=== PATIENT | male | born 1950 | race Caucasian/White ===

== ENCOUNTER 2018-01-07 09:31 | Inpatient (IN) | payer MEDICARE ==
[~2018-01-07] VITALS: Ht 165.1 cm; Wt 62.1 kg
[2018-01-07] VITALS (11 sets, daily range): BP systolic 125–161; BP diastolic 68–92; PULSE 85–106; RESP 16–20; TEMP 98–99; O2SAT 92–99
[2018-01-07] MEDS ORDERED: ASPI-183 PO (09:52)
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
[2018-01-07] MEDS ORDERED: ONDANSETRON ODT 4 MG TAB PO ONE (10:15)
[2018-01-07] MEDS ORDERED: SODIUM CHLORID 0.9% 500 ML INJ 500 ML IV ONE (10:15)
[2018-01-07] MEDS ORDERED: MORPHINE SULFATE 4 MG/ML INJ IV PUSH ONE (10:15)
[2018-01-07] MEDS ORDERED: SODIUM CHLORIDE 0.9% FLUSH 10 ML FLUSH IVF PRN (10:15)
[2018-01-07 10:18] LABS: AUTOMATED NEUTROPHIL # 6.9 TH/MM3 (1.8-7.7); BASOPHIL # 0.1 TH/MM3 (0-0.2); BASOPHIL % 0.6 % (0.0-2.0); EOSINOPHIL # 0.1 TH/MM3 (0-0.4); EOSINOPHIL % 0.6 % (0.0-4.0); HEMATOCRIT 39.1 % (39.0-51.0); HEMOGLOBIN 13.2 GM/DL (13.0-17.0); LYMPH % 15.9 % (9.0-44.0); LYMPHOCYTE # 1.5 TH/MM3 (1.0-4.8); MEAN CELL VOLUME 92.7 FL (80.0-100.0); MEAN CORPUSCULAR HEMOGLOBIN 31.4 PG (27.0-34.0); MEAN CORPUSCULAR HGB CONC 33.8 % (32.0-36.0); MONO % 10.6 % (0.0-8.0); NEUT % 72.3 % (16.0-70.0); PLATELET COUNT 235 TH/MM3 (150-450); RED BLOOD COUNT 4.22 MIL/MM3 (4.50-5.90); RED CELL DISTRIBUTION WIDTH 14.4 % (11.6-17.2); WHITE BLOOD COUNT 9.6 TH/MM3 (4.0-11.0)
[2018-01-07 10:31] LABS: PROTHROMBIN TIME - PATIENT 10.4 SEC (9.8-11.6)
[2018-01-07 10:34] LABS: ALBUMIN 2.9 GM/DL (3.4-5.0); AST (GOT) 25 U/L (15-37); BICARBONATE 21.5 MEQ/L (21.0-32.0); BLOOD UREA NITROGEN 21 MG/DL (7-18); CALCIUM 8.6 MG/DL (8.5-10.1); CHLORIDE 109 MEQ/L (98-107); GLOMERULAR FILTRATION RATE 51 ML/MIN (>89); GLUCOSE,RANDOM 85 MG/DL (74-106); MAGNESIUM 2.1 MG/DL (1.5-2.5); SODIUM (NA) 141 MEQ/L (136-145)
--- NOTE | 2018-01-07 10:34 | RADRPT ---
EXAM DATE: 01/07/2018 10:31 AM EDT AGE/SEX: 67 years / Male INDICATIONS: Chest pain, short of breath, coughing up blood. CLINICAL DATA: This is the patient's initial encounter. Patient reports that signs and symptoms have been present for 1 day and indicates a pain score of 10/10. MEDICAL/SURGICAL HISTORY: Stroke. smoker, Coronary artery stent. CABG. COMPARISON: No prior exams available for comparison. FINDINGS: Parenchymal infiltrates are present in bilateral upper lobes. Heart and mediastinum are unremarkable. There is evidence of prior median sternotomy. CONCLUSION: Bilateral upper lobe infiltrates and tiny pleural effusions is suspected bilaterally as well. Electronically signed by: Subhash Kaur MD 01/07/2018 10:33 AM EDT
[2018-01-07 10:36] LABS: ALT (GPT) 28 U/L (12-78)
[2018-01-07 10:40] LABS: ALKALINE PHOSPHATASE 71 U/L (45-117); TOTAL BILIRUBIN ADULT 0.7 MG/DL (0.2-1.0); TOTAL PROTEIN 7.1 GM/DL (6.4-8.2); TROPONIN I LESS THAN 0.02 NG/ML (0.02-0.05)
[2018-01-07] MEDS ORDERED: cefTRIAXone INJ 1,000 MG in SODIUM CHLORIDE 0.9% INJ 100 ML IV ONE (12:00)
[2018-01-07] MEDS ORDERED: AZITHROMYCIN INJ 500 MG in SODIUM CHLOR 0.9% 250 ML INJ 250 ML IV ONE (12:00)
--- NOTE | 2018-01-07 12:02 | RADRPT ---
EXAM DATE: 01/07/2018 11:53 AM EDT AGE/SEX: 67 years / Male INDICATIONS: Coughing up blood. Chest and abdominal pain. CLINICAL DATA: This is the patient's initial encounter. Patient reports that signs and symptoms have been present for 3 days and indicates a pain score of 4/10. MEDICAL/SURGICAL HISTORY: Cardiovascular disease. Coronary artery stent. Carotid endarterectomy. CABG. RADIATION DOSE: 7.75 CTDI (mGy) COMPARISON: C, CHEST PA & LAT, 01/07/2018. . TECHNIQUE: Multiple contiguous axial images were obtained through the chest during bolus infusion of 74 ml Omnipaque 350 (iohexol) nonionic water-soluble contrast as a single exam dose. Images were obtained in suspended respiration using multiple row detector helical technique. Using automated exp osure control and adjustment of the mA and/or kV according to patient size, radiation dose was kept a s low as reasonably achievable to obtain optimal diagnostic quality images. FINDINGS: There is dense airspace consolidation in bilateral upper lobes corresponding to the opacities identif ied on the patient's chest x-ray. Small bilateral pleural effusions are seen. There is mild infiltrat e in right middle lobe. No appreciable pathological adenopathy is seen within the mediastinum. There is AAA involving descending aorta measures 4.5 x 4.7 cm in AP and transverse diameters with signific ant atherosclerotic plaquing intramural thrombus formation and areas of ulceration past the diaphragm atic hiatus and the exact extent of this aneurysm is not determined. There is also extensive atherosc lerotic plaquing with ulceration of the aortic arch. There is anterior wedging of upper lumbar verteb gill not adequately characterized. There are tiny nodules within bilateral thyroid glands most likely benign. CONCLUSION: 1. There is airspace consolidation in bilateral upper lobes highly suspicious for pneumonia. 2. Small bilateral pleural effusions. 3. Significant atherosclerotic disease of aorta including the aortic arch, ascending aorta with area s of ulceration particularly involving the descending aorta which is also aneurysmal measures almost 4.7 cm in diameter. 4. Superior endplate depression and compression of one of the upper lumbar vertebrae not adequately characterized probably chronic. Electronically signed by: uSbhash Kaur MD 01/07/2018 12:01 PM EDT
[2018-01-07] MEDS ORDERED: METOPROLOL TARTRATE 5 MG/5 ML VIAL IV PUSH ONE (12:45)
[2018-01-07] MEDS ORDERED: RESP: ALBUTEROL 2.5 MG/IPRATROPIUM 0.5 MG NEB (SCH) NEB ONE (12:45)
[2018-01-07] MEDS ORDERED: METOPROLOL TARTRATE 25 MG TAB PO ONE (12:45)
[2018-01-07] MEDS ORDERED: RESP: ALBUTEROL 2.5 MG/3 ML NEB (PRN) INH (13:00)
[2018-01-07] MEDS ORDERED: ASPIRIN 325 MG TAB PO ONE (13:00)
[2018-01-07] MEDS ORDERED: IOHEXOL 350 MG/ML 10 ML VIAL (for RAD DIAG) IVCONTRAST ONE (13:04)
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
[2018-01-07] MEDS ORDERED: POTASSIUM CHLORIDE 10 MEQ CONTROLLED RELEASE TAB PO ONE (14:30)
[2018-01-07] MEDS ORDERED: FUROSEMIDE 40 MG/4 ML VIAL IV PUSH ONE (14:30)
--- NOTE | 2018-01-07 15:28 | EKG ---
Date Performed: 01/07/2018 Time Performed: 08:50:30 PTAGE: 67 years EKG: Sinus rhythm WITH OCCASIONAL VENTRICULAR PREMATURE COMPLEXES WITH FREQUENT SUPRAVENTRICULAR PREMATURE COMPLEXES L EFT VENTRICULAR HYPERTROPHY AND ST-T CHANGE ABNORMAL ECG NO PREVIOUS TRACING DOCTOR: Oneyda Stevenson Interpretating Date/Time 01/07/2018 15:26:00
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
[2018-01-07] MEDS: RESP: IPRATROPIUM 0.5 MG/2.5 ML NEB INH SCH ×2 (17:35→21:30)
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
[2018-01-07] MEDS: METOPROLOL TARTRATE 25 MG TAB PO SCH (20:49)
[2018-01-07] MEDS: SODIUM CHLORIDE 0.9% FLUSH 10 ML FLUSH IV FLUSH SCH (20:50)
[2018-01-07 22:54] LABS: MAGNESIUM 1.8 MG/DL (1.5-2.5)
[2018-01-07 22:56] LABS: TROPONIN I 0.21 NG/ML (0.02-0.05)
[2018-01-08] VITALS (12 sets, daily range): BP systolic 100–159; BP diastolic 61–101; PULSE 63–145; RESP 16–35; TEMP 97.8–99.1; O2SAT 92–99
[2018-01-08] MEDS: RESP: IPRATROPIUM 0.5 MG/2.5 ML NEB INH SCH ×2 (03:37→08:30)
[2018-01-08] MEDS: ASPIRIN 81 MG CHEW TAB CHEW SCH (09:14)
[2018-01-08] MEDS: METOPROLOL TARTRATE 25 MG TAB PO SCH ×2 (09:14→20:57)
[2018-01-08] MEDS: SODIUM CHLORIDE 0.9% FLUSH 10 ML FLUSH IV FLUSH SCH ×2 (09:15→20:56)
[2018-01-08] MEDS ORDERED: RESP: ALBUTEROL 2.5 MG/IPRATROPIUM 0.5 MG NEB (PRN) NEB (10:30)
--- NOTE | 2018-01-08 10:38 | HHI.PR ---
Subjective Remarks 67-year-old male with history of open heart surgery for uncertain reasons, TIA, bilateral carotid stenting, chronic smoker who presents with a 3 day history of cough productive of bloody sputum, as well as sharp epigastric abdominal worse with deep breathing. Over the phone translation is offered, however patient opts to use daughter for translation. Patient reports sweats, shortness of breath, and reports breathing worse lying down. He is emigrated from [place] in the 1970s, denies any recent travel outside the country, however reports recent automobile travel which lasted 2 days. He denies any swelling in his extremities. 01-08 IN RESPIRATORY ISOLATION- RULING OUT TB CONTINUE IS ALBERT TAYLOR RN AND PT AND FAMILY AWAIT SPUTUMS Objective Vitals Vital Signs Date Time Temp Pulse Resp B/P (MAP) Pulse Ox O2 Delivery O2 Flow Rate FiO2 01/08/18 08:30 97 Partial Rebreather 14.00 01/08/18 08:00 98.1 63 17 134/76 (95) 92 01/08/18 03:37 97 Non-Rebreather 15.00 01/08/18 00:00 97.8 80 16 107/61 (76) 97 01/07/18 21:30 96 Non-Rebreather 15.00 01/07/18 20:38 98.0 99 20 147/68 (94) 95 01/07/18 19:07 01/07/18 17:24 85 16 128/81 (97) 99 Non-Rebreather 15.00 01/07/18 15:48 95 20 156/79 (104) 98 Non-Rebreather 15.00 01/07/18 14:51 94 Non-Rebreather 15.00 01/07/18 13:20 106 20 125/91 (102) 94 Nasal Cannula 4.00 01/07/18 13:15 92 Nasal Cannula 6.00 01/07/18 11:59 95 16 161/80 (107) 92 Nasal Cannula 4.00 01/07/18 10:53 16 94 Nasal Cannula 2.00 I/O 01/07/18 01/07/18 01/07/18 01/08/18 01/08/18 01/08/18 07:00 15:00 23:00 07:00 15:00 23:00 Intake Total 850 ml Output Total 950 ml 300 ml Balance 850 ml -950 ml -300 ml Intake IV Total 850 ml Output Urine Total 950 ml 300 ml # Voids 1 Result Diagram: 01/07/18 1005 01/07/18 1005 Other Results Laboratory Tests Test 01/07/18 10:05 01/07/18 12:25 01/07/18 14:35 01/07/18 15:32 White Blood Count 9.6 TH/MM3 Red Blood Count 4.22 MIL/MM3 Hemoglobin 13.2 GM/DL Hematocrit 39.1 % Mean Corpuscular Volume 92.7 FL Mean Corpuscular Hemoglobin 31.4 PG Mean Corpuscular Hemoglobin Concent 33.8 % Red Cell Distribution Width 14.4 % Platelet Count 235 TH/MM3 Mean Platelet Volume 9.0 FL Neutrophils (%) (Auto) 72.3 % Lymphocytes (%) (Auto) 15.9 % Monocytes (%) (Auto) 10.6 % Eosinophils (%) (Auto) 0.6 % Basophils (%) (Auto) 0.6 % Neutrophils # (Auto) 6.9 TH/MM3 Lymphocytes # (Auto) 1.5 TH/MM3 Monocytes # (Auto) 1.0 TH/MM3 Eosinophils # (Auto) 0.1 TH/MM3 Basophils # (Auto) 0.1 TH/MM3 CBC Comment DIFF FINAL Differential Comment Prothrombin Time 10.4 SEC Prothromb Time International Ratio 1.0 RATIO Activated Partial Thromboplast Time 29.9 SEC D-Dimer Quantitative (PE/DVT) 1.55 MG/L FEU Blood Urea Nitrogen 21 MG/DL Creatinine 1.40 MG/DL Random Glucose 85 MG/DL Total Protein 7.1 GM/DL Albumin 2.9 GM/DL Calcium Level 8.6 MG/DL Magnesium Level 2.1 MG/DL Alkaline Phosphatase 71 U/L Aspartate Amino Transf (AST/SGOT) 25 U/L Alanine Aminotransferase (ALT/SGPT) 28 U/L Total Bilirubin 0.7 MG/DL Sodium Level 141 MEQ/L Potassium Level 3.7 MEQ/L Chloride Level 109 MEQ/L Carbon Dioxide Level 21.5 MEQ/L Anion Gap 11 MEQ/L Estimat Glomerular Filtration Rate 51 ML/MIN Total Creatine Kinase 143 U/L Creatine Kinase MB 0.6 NG/ML Troponin I LESS THAN 0.02 NG/ML 0.02 NG/ML B-Type Natriuretic Peptide 873 PG/ML Lipase 91 U/L Lactic Acid Level 1.0 mmol/L Blood Gas Puncture Site RT RADIAL Blood Gas Patient Temperature 98.6 Blood Gas HCO3 19 mmol/L Blood Gas Base Excess -4.4 mmol/L Blood Gas Oxygen Saturation 85 % Arterial Blood pH 7.43 Arterial Blood Partial Pressure CO2 29 mmHg Arterial Blood Partial Pressure O2 56 mmHG Arterial Blood Oxygen Content 16.2 Vol % Arterial Blood Carboxyhemoglobin 0.0 % Arterial Blood Methemoglobin 0.4 % Blood Gas Hemoglobin 13.6 G/DL Oxygen Delivery Device NASAL CANNULA Blood Gas Liter Flow 6 L/M Test 01/07/18 16:25 01/07/18 21:52 Urine Opiates Screen NEG Urine Barbiturates Screen NEG Urine Amphetamines Screen NEG Urine Benzodiazepines Screen NEG Urine Cocaine Screen NEG Urine Cannabinoids Screen NEG Magnesium Level 1.8 MG/DL Troponin I 0.21 NG/ML Imaging Last Impressions Chest X-Ray 01/07/18 1001 Signed Impressions: CONCLUSION: Bilateral upper lobe infiltrates and tiny pleural effusions is suspected bilate rally as well. Chest CT 01/07/18 0000 Addendum Impressions: CONCLUSION: 1. There is airspace consolidation in bilateral upper lobes highly suspicious for pneumonia. 2. Small bilateral pleural effusions. 3. 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 4. Superior endplate depression and compression of one of the upper lumbar stevan tebrae not adequately characterized probably chronic. Objective Remarks GENERAL: This is a well-nourished, well-developed patient, in no apparent distress. Alert and oriented 3. SKIN: No rashes, ecchymoses or lesions. Cool and dry. HEAD: Atraumatic. Normocephalic. No temporal or scalp tenderness. EYES: Pupils equal round and reactive. Extraocular motions intact. No scleral icterus. No injection or drainage. ENT: Nose without bleeding, purulent drainage or septal hematoma. Throat without erythema, tonsillar hypertrophy or exudate. Uvula midline. Airway patent. No bruits NECK: Trachea midline. No JVD or lymphadenopathy. Supple, nontender, no meningeal signs. CARDIOVASCULAR: Regular rate and rhythm without murmurs, gallops, or rubs. Midline healed chest surgical scar., Midline abdominal scar. RESPIRATORY: COARSE BS BL. No wheezes, rales, or rhonchi. GASTROINTESTINAL: Abdomen soft, non-tender, nondistended. No hepato-splenomegaly , or palpable masses. No guarding. MUSCULOSKELETAL: Extremities without clubbing, cyanosis, or edema. No joint tenderness, effusion, or edema noted. No calf tenderness. Negative Homans sign bilaterally. NEUROLOGICAL: Awake and alert. Cranial nerves II through XII intact. Motor and sensory grossly within normal limits. Five out of 5 muscle strength in all muscle groups. Normal speech. INSIGHT AND JUDGEMENT IS LIMITED MOOD AND BEHAVIOR IS SOMEWHAT APPROPRIATE Medications and IVs Current Medications Morphine Sulfate (Morphine Inj) 2 mg ONCE ONCE IV PUSH Last administered on 01/07/18at 10:52; Start 01/07/18 at 10:15; Stop 01/07/18 at 10:16; Status DC Sodium Chloride (NS Flush) 2 ml UNSCH PRN IVF FLUSH AFTER USING IV ACCESS; Start 01/07/18 at 10:15; Stop 01/07/18 at 14:48; Status DC Sodium Chloride 500 ml @ 500 mls/hr ONCE ONCE IV Last administered on at 10:51; Start 01/07/18 at 10:15; Stop 01/07/18 at 11:14; Status DC Ondansetron HCl (Zofran Odt) 4 mg ONCE ONCE PO Last administered on 01/07/18at 10:51; Start 01/07/18 at 10:15; Stop 01/07/18 at 10:16; Status DC Ceftriaxone Sodium 1000 mg/ Sodium Chloride 100 ml @ 200 mls/hr ONCE ONCE IV Last administered on 01/07/18at 12:33; Start 01/07/18 at 12:00; Stop 01/07/18 at 12: 29; Status DC Azithromycin 500 mg/Sodium Chloride 250 ml @ 250 mls/hr ONCE ONCE IV Last administered on 01/07/18at 12:34; Start 01/07/18 at 12:00; Stop 01/07/18 at 12:59; Status DC Albuterol/ Ipratropium (Duoneb Neb) 1 ampule ONCE ONCE NEB Last administered on 01/07/18at 13:16; Start 01/07/18 at 12:45; Stop 01/07/18 at 12:46; Status DC Metoprolol Tartrate (Lopressor) 25 mg ONCE ONCE PO Last administered on at 12:45; Start 01/07/18 at 12:45; Stop 01/07/18 at 12:46; Status DC Metoprolol Tartrate (Lopressor Inj) 1.25 mg ONCE ONCE IV PUSH Last administered on 01/07/18at 12:45; Start 01/07/18 at 12:45; Stop 01/07/18 at 12:46; Status DC Aspirin (Aspirin) 325 mg ONCE ONCE PO Last administered on 01/07/18at 13:20; Start 01/07/18 at 13:00; Stop 01/07/18 at 13:01; Status DC Sodium Chloride (NS Flush) 2 ml BID IV FLUSH Last administered on 01/08/18at 09: 15; Start 01/07/18 at 21:00 Sodium Chloride (NS Flush) 2 ml UNSCH PRN IV FLUSH FLUSH AFTER USING IV ACCESS ; Start 01/07/18 at 13:00 Albuterol Sulfate (Albuterol Neb) 2.5 mg Q2HR NEB PRN INH SHORTNESS OF BREATH; Start 01/07/18 at 13:00 Ipratropium [place] (Atrovent Neb) 0.5 mg Q6HR NEB INH Last administered on 01/08/18at 08:30; Start 01/07/18 at 16:00 Azithromycin (Zithromax) 500 mg Taper Q24H PO ; Start 01/08/18 at 13:00; Stop at 12:59 Ceftriaxone Sodium 1000 mg/ Sodium Chloride 100 ml @ 200 mls/hr Q24H IV ; Start 01/08/18 at 13:00 Iohexol (Omnipaque 350 Inj) 74 ml STK-MED ONCE IVCONTRAST Last administered on 01/07/18at 13:04; Start 01/07/18 at 13:04; Stop 01/07/18 at 13:05; Status DC Hydralazine HCl (Apresoline) 10 mg Q45M PRN PO SBP > 140; Start 01/07/18 at 15: 00 Furosemide (Lasix Inj) 40 mg ONCE ONCE IV PUSH Last administered on 01/07/18at 15:35; Start 01/07/18 at 14:30; Stop 01/07/18 at 14:35; Status DC Potassium Chloride (KCl) 30 meq ONCE ONCE PO Last administered on 01/07/18at 15: 35; Start 01/07/18 at 14:30; Stop 01/07/18 at 14:36; Status DC Aspirin (Aspirin Chew) 81 mg DAILY CHEW Last administered on 01/08/18at 09:14; Start 01/08/18 at 09:00 Metoprolol Tartrate (Lopressor) 25 mg Q12HR PO Last administered on 01/08/18at 09 :14; Start 01/07/18 at 21:00 A/P Problem List: (1) Paroxysmal atrial flutter ICD Code: I48.92 - Unspecified atrial flutter Status: Acute (2) Bilateral pneumonia ICD Code: J18.9 - Pneumonia, unspecified organism Status: Acute (3) Tachyarrhythmia ICD Code: R00.0 - Tachycardia, unspecified Status: Acute (4) Hypoxia ICD Code: R09.02 - Hypoxemia Status: Acute Assessment and Plan //Suspected bilateral upper lobe pneumonia //Possible pulmonary embolism //Hemoptysis //Possible tuberculosis = Recent prolonged 2 day automobile trip = Chest x-ray with bilateral upper lobe infiltrates. CT chest with bilateral upper lobe infiltrates. = D-dimer 1.4. Pending CT pulmonary angiogram. = Nebs, IV antibiotics. NEBS STEROIDS, MUCINEX, IS,ANTIBIOTICS //CHF exacerbation -Bilateral pulmonary infiltrates, BNP ordered which is in the 800s. Will check echocardiogram. Cardiology was consulted. Diuresis. Fluid restrictions per //Pleuritic chest pain = Likely secondary to pneumonia versus pulmonary embolism. CT pulmonary SHOWS PNEUMONIA = Discussed with cardiology, who will addend thoracic CT. = Trend EKGs and troponins. //Suspected paroxysmal atrial fibrillation. Reported by ED. EKGs. No previous history. Will consult cardiology. Continue on telemetry. //Aortic aneurysm as seen on imaging. 4.7 cm. ulcerations. = Patient reportedly with history of stroke. Likely he underwent aortic aneurysm repair in the past, however unknown why he had surgery. Patient will need to stop smoking, and continue monitoring as outpatient. Will control blood pressure. //Chronic smoker. Cessation counseling provided Discharge Planning PENDING CLEARANCE FOR TB Problem Qualifiers (1) Bilateral pneumonia: Qualified Codes: J18.1 - Lobar pneumonia, unspecified organism Yovanny Solano DO Jan 08, 2018 10:38
[2018-01-08] MEDS ORDERED: SENNOSIDES 8.6 MG TAB PO PRN (11:30)
[2018-01-08] MEDS ORDERED: METOCLOPRAMIDE HCL 10 MG/2 ML VIAL IV PUSH PRN (11:30)
[2018-01-08] MEDS ORDERED: NALOXONE HCL 0.4 MG/ML AMP IV PUSH PRN (11:30)
[2018-01-08] MEDS ORDERED: LACTULOSE SYRUP 20 GM/30 ML CUP PO PRN (11:30)
[2018-01-08] MEDS ORDERED: BISACODYL 10 MG SUPP RECTAL PRN (11:30)
[2018-01-08] MEDS ORDERED: oxyCODONE/ACETAMINOPHEN 5 MG/325 MG TAB PO PRN (11:30)
[2018-01-08] MEDS ORDERED: MAGNESIUM HYDROXIDE SUSP 30 ML CUP PO PRN (11:30)
[2018-01-08] MEDS ORDERED: ACETAMINOPHEN 325 MG TAB PO PRN (11:30)
[2018-01-08] MEDS ORDERED: ONDANSETRON ODT 4 MG TAB PO PRN (12:15)
[2018-01-08] MEDS ORDERED: MORPHINE SULFATE 4 MG/ML INJ IV PUSH PRN ×2 (12:15)
[2018-01-08] MEDS: guaiFENesin E.R. 600 MG TAB PO SCH ×2 (12:22→20:57)
[2018-01-08] MEDS: oxyCODONE/ACETAMINOPHEN 10 MG/325 MG TAB PO PRN (12:22)
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
[2018-01-08] MEDS ORDERED: cefTRIAXone INJ 1,000 MG in SODIUM CHLORIDE 0.9% INJ 100 ML IV SCH (13:00)
[2018-01-08] MEDS ORDERED: guaiFENesin/CODEINE SYRUP 200 MG/20 MG/10 ML CUP PO PRN (14:00)
[2018-01-08] MEDS ORDERED: RESP: ALBUTEROL 2.5 MG/IPRATROPIUM 0.5 MG NEB (SCH) NEB (14:00)
[2018-01-08] MEDS ORDERED: SODIUM CHLOR 0.9% 1000 ML INJ 1,000 ML IV ONE (14:30)
--- NOTE | 2018-01-08 14:58 | EKG ---
Date Performed: 01/07/2018 Time Performed: 20:13:29 PTAGE: 67 years EKG: Sinus rhythm WITH FREQUENT VENTRICULAR PREMATURE COMPLEXES WITH FREQUENT SUPRAVENTRICULAR PREMATURE COMPLEXES IN A BIGEMINAL PATTERN LEFT VENTRICULAR HYPERTROPHY AND ST-T CHANGE ABNORMAL ECG PREVIOUS TRACING : 01/07/2018 16.35 Since the previous tracing, no significant change noted DOCTOR: Micha Reyes Interpretating Date/Time 01/08/2018 14:57:46
[2018-01-08] MEDS ORDERED: SODIUM CHLOR 0.9% 1000 ML INJ 1,000 ML IV SCH (15:00)
--- NOTE | 2018-01-08 15:05 | EKG ---
Date Performed: 01/07/2018 Time Performed: 16:35:10 PTAGE: 67 years EKG: Sinus rhythm WITH FREQUENT SUPRAVENTRICULAR PREMATURE COMPLEXES LEFT VENTRICULAR HYPERTROPHY AND ST-T CHANGE ABNO RMAL ECG PREVIOUS TRACING : 01/07/2018 11.37 COMPARED WITH THE PREVIOUS EKG ATRIAL FIBRILLATION WITH RA PID VENTRICULAR RESPONSE IS NO LONGER PRESENT DOCTOR: Micha Reyes Interpretating Date/Time 01/08/2018 15:04:07
--- NOTE | 2018-01-08 15:15 | EKG ---
Date Performed: 01/07/2018 Time Performed: 11:37:11 PTAGE: 67 years EKG: ATRIAL FIBRILLATION WITH RAPID VENTRICULAR RESPONSE LEFT VENTRICULAR HYPERTROPHY AND ST-T CHANGE ABNORMAL ECG PREVIOUS TRACING : 01/07/2018 08.50 COMPARED WITH PREVIOUS EKG ATRIAL FIBRILLATION WITH RAPID VENTRICULAR RESPONSE IS NEW DOCTOR: Micha Reyes Interpretating Date/Time 01/08/2018 15:14:32
--- NOTE | 2018-01-08 15:36 | RADRPT ---
EXAM DATE: 01/08/2018 3:30 PM EDT AGE/SEX: 67 years / Male INDICATIONS: SOB CLINICAL DATA: This is the patient's subsequent encounter. Patient reports that signs and symptoms h ave been present for 4 - 6 days and indicates a pain score of Nonresponsive. MEDICAL/SURGICAL HISTORY: Cardiovascular disease. CABG Coronary artery stent. Carotid endarter ectomy. COMPARISON: [facility] [place], CHEST PA & LAT, 01/07/2018. . FINDINGS: Frontal view of the chest demonstrates bilateral nonconsolidative infiltrates in the central upper jimmy ngs bilaterally. These are similar in size and appearance when compared to prior chest x-ray yesterda y. There is also new infiltrate in the right hilar region. The heart is mildly enlarged, stable from prior. Both hemidiaphragms well delineated and there is no blunting of the costophrenic angle. CONCLUSION: Persistent bilateral upper lung interstitial infiltrates and new infiltrate in the right perihilar re gion. No radiographic evidence of pleural effusion. Electronically signed by: Hiro Rangel MD 01/08/2018 3:35 PM EDT
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
[2018-01-08 16:26] LABS: TROPONIN I 0.22 NG/ML (0.02-0.05)
[2018-01-08 16:48] LABS: BASOPHIL % 0.3 % (0.0-2.0); EOSINOPHIL % 0.1 % (0.0-4.0); HEMATOCRIT 37.7 % (39.0-51.0); HEMOGLOBIN 12.6 GM/DL (13.0-17.0); LYMPH % 6.3 % (9.0-44.0); LYMPHOCYTE # 0.8 TH/MM3 (1.0-4.8); MEAN CELL VOLUME 93.1 FL (80.0-100.0); MEAN CORPUSCULAR HEMOGLOBIN 31.1 PG (27.0-34.0); MEAN CORPUSCULAR HGB CONC 33.4 % (32.0-36.0); MEAN PLATELET VOLUME 9.5 FL (7.0-11.0); MONO % 8.7 % (0.0-8.0); MONOCYTE # 1.1 TH/MM3 (0-0.9); NEUT % 84.6 % (16.0-70.0); PLATELET COUNT 205 TH/MM3 (150-450); RED BLOOD COUNT 4.04 MIL/MM3 (4.50-5.90); RED CELL DISTRIBUTION WIDTH 14.6 % (11.6-17.2)
--- NOTE | 2018-01-08 17:11 | PD.CARD.PN ---
Subjective Subjective Remarks Transferred to ICU by pulmonary Telemetry sinus rhythm in the 80s Overall SOB, no chest pain Objective Medications Current Medications Medications (Trade) Dose Ordered Sig/Herber Route Start Time Stop Time Status Last Admin (NS Flush) 2 ml BID IV FLUSH 01/07/18 21:00 01/08/18 09:15 (NS Flush) 2 ml UNSCH PRN IV FLUSH 01/07/18 13:00 (Zithromax) 500 mg Taper DAILY PO 01/08/18 13:00 01/13/18 12:59 Ceftriaxone Sodium 1000 mg/ Sodium Chloride 100 ml @ 200 mls/hr Q24H IV 01/08/18 13:00 01/08/18 14:15 (Apresoline) 10 mg Q45M PRN PO 01/07/18 15:00 (Aspirin Chew) 81 mg DAILY CHEW 01/08/18 09:00 01/08/18 09:14 (Lopressor) 25 mg Q12HR PO 01/07/18 21:00 01/08/18 09:14 (Mucinex Er) 600 mg BID PO 01/08/18 11:15 01/08/18 12:22 (Duoneb Neb) 1 ampule Q6HR WHILE AWAKE NEB NEB 01/08/18 14:00 01/08/18 13:27 (Duoneb Neb) 1 ampule Q2HR NEB PRN NEB 01/08/18 10:30 (Tylenol) 650 mg Q4H PRN PO 01/08/18 11:30 (Zofran Odt) 4 mg Q6H PRN PO 01/08/18 12:15 (Reglan Inj) 5 mg Q6H PRN IV PUSH 01/08/18 11:30 (Tylenol) 650 mg Q6H PRN PO 01/08/18 11:30 (Percocet 5-325 Mg) 1 tab Q6H PRN PO 01/08/18 11:30 (Percocet 10-325 Mg) 1 tab Q6H PRN PO 01/08/18 11:30 01/08/18 12:22 (Morphine Inj) 2 mg Q3H PRN IV PUSH 01/08/18 12:15 (Morphine Inj) 4 mg Q3H PRN IV PUSH 01/08/18 12:15 (Narcan Inj) 0.4 mg UNSCH PRN IV PUSH 01/08/18 11:30 (Lashay-Colace) 1 tab BID PO 01/08/18 21:00 (Milk Of Magnesia Liq) 30 ml Q12H PRN PO 01/08/18 11:30 (Senokot) 17.2 mg Q12H PRN PO 01/08/18 11:30 (Dulcolax Supp) 10 mg DAILY PRN RECTAL 01/08/18 11:30 (Lactulose Liq) 30 ml DAILY PRN PO 01/08/18 11:30 (Robitussin Ac 200-20 Mg/10 ml Liq) 5 ml Q6H PRN PO 01/08/18 14:00 Sodium Chloride 1,000 ml @ 125 mls/hr Q8H IV 01/08/18 15:00 Vital Signs / I&O Vital Signs Date Time Temp Pulse Resp B/P (MAP) Pulse Ox O2 Delivery O2 Flow Rate FiO2 01/08/18 12:00 97.8 98 17 100/67 (78) 92 01/08/18 08:30 97 Partial Rebreather 14.00 01/08/18 08:00 98.1 63 17 134/76 (95) 92 01/08/18 03:37 97 Non-Rebreather 15.00 01/08/18 00:00 97.8 80 16 107/61 (76) 97 01/07/18 21:30 96 Non-Rebreather 15.00 01/07/18 20:38 98.0 99 20 147/68 (94) 95 01/07/18 19:07 01/07/18 17:24 85 16 128/81 (97) 99 Non-Rebreather 15.00 I/O 01/07/18 01/07/18 01/07/18 01/08/18 01/08/18 01/08/18 07:00 15:00 23:00 07:00 15:00 23:00 Intake Total 850 ml Output Total 950 ml 300 ml Balance 850 ml -950 ml -300 ml Intake IV Total 850 ml Output Urine Total 950 ml 300 ml # Voids 1 Physical Exam GENERAL: NAD on NRB SKIN: Warm and dry. HEAD: Atraumatic. Normocephalic. EYES: Pupils equal and round. No scleral icterus. No injection or drainage. ENT: No nasal bleeding or discharge. Mucous membranes pink and moist. NECK: Trachea midline. No JVD. CARDIOVASCULAR: Regular rate and rhythm. RESPIRATORY: No accessory muscle use. Decreased breath sounds with scattered rhonchi GASTROINTESTINAL: Abdomen soft, non-tender, nondistended. Hepatic and splenic margins not palpable. MUSCULOSKELETAL: Extremities without clubbing, cyanosis, or edema. No obvious deformities. NEUROLOGICAL: Awake and alert. No obvious cranial nerve deficits. Motor grossly within normal limits. Five out of 5 muscle strength in the arms and legs. Normal speech. PSYCHIATRIC: Appropriate mood and affect; insight and judgment normal. Laboratory Laboratory Tests Test 01/07/18 21:52 01/08/18 15:00 01/08/18 15:41 01/08/18 16:20 Magnesium Level 1.8 MG/DL Troponin I 0.21 NG/ML 0.22 NG/ML Blood Gas Puncture Site LT RADIAL Blood Gas Patient Temperature 98.6 Blood Gas HCO3 21 mmol/L Blood Gas Base Excess -3.2 mmol/L Blood Gas Oxygen Saturation 94 % Arterial Blood pH 7.39 Arterial Blood Partial Pressure CO2 35 mmHg Arterial Blood Partial Pressure O2 96 mmHg Arterial Blood Oxygen Content 16.6 Vol % Arterial Blood Carboxyhemoglobin 0.6 % Arterial Blood Methemoglobin 1.8 % Blood Gas Hemoglobin 12.5 G/DL Oxygen Delivery Device PARTIAL REBREATHER Blood Gas Liter Flow 15 L/M Total Creatine Kinase 602 U/L Creatine Kinase MB 1.7 NG/ML Creatine Kinase MB % 0.3 % Test 01/08/18 16:30 White Blood Count 13.0 TH/MM3 Red Blood Count 4.04 MIL/MM3 Hemoglobin 12.6 GM/DL Hematocrit 37.7 % Mean Corpuscular Volume 93.1 FL Mean Corpuscular Hemoglobin 31.1 PG Mean Corpuscular Hemoglobin Concent 33.4 % Red Cell Distribution Width 14.6 % Platelet Count 205 TH/MM3 Mean Platelet Volume 9.5 FL Neutrophils (%) (Auto) 84.6 % Lymphocytes (%) (Auto) 6.3 % Monocytes (%) (Auto) 8.7 % Eosinophils (%) (Auto) 0.1 % Basophils (%) (Auto) 0.3 % Neutrophils # (Auto) 11.0 TH/MM3 Lymphocytes # (Auto) 0.8 TH/MM3 Monocytes # (Auto) 1.1 TH/MM3 Eosinophils # (Auto) 0.0 TH/MM3 Basophils # (Auto) 0.0 TH/MM3 CBC Comment DIFF FINAL Differential Comment Imaging Last 24 hours Impressions Chest X-Ray 01/08/18 0000 Signed Impressions: CONCLUSION: Persistent bilateral upper lung interstitial infiltrates and new infiltrate in the right perihilar region. No radiographic evidence of pleural effusion. Assessment and Plan Problem List: (1) Bilateral pneumonia ICD Codes: J18.9 - Pneumonia, unspecified organism Status: Acute (2) Hypoxia ICD Codes: R09.02 - Hypoxemia Status: Acute (3) Tachyarrhythmia ICD Codes: R00.0 - Tachycardia, unspecified Status: Acute (4) Paroxysmal atrial flutter ICD Codes: I48.92 - Unspecified atrial flutter Status: Acute Assessment and Plan 1) SOB secondary to PNA Bloody mucus, ruling out TB 2) Aflutter with RVR, now in sinus rhythm Most likely potentiated by his underlying illness Not an anti-coagulation candidate at this time due to hemoptysis 3) 2D echo pending 4) 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 Lamar Echo to evaluate aortic valve with surgery 5) Abdominal aortic aneurysm Follow up with Dr. Lamar 6) Tobacco cessation 7) Elevated troponins Type 2 in nature due to underlying illness/hypoxemia Medical management as he is not an invasive candidate with hemoptysis This can be reevaluated through out the hospital course and outpt Problem Qualifiers (1) Bilateral pneumonia: Qualified Codes: J18.1 - Lobar pneumonia, unspecified organism Atul Galan DO Jan 08, 2018 17:11
[2018-01-08 17:20] LABS: ALBUMIN 2.5 GM/DL (3.4-5.0); ALKALINE PHOSPHATASE 90 U/L (45-117); ALT (GPT) 47 U/L (12-78); AST (GOT) 57 U/L (15-37); BICARBONATE 21.1 MEQ/L (21.0-32.0); BLOOD UREA NITROGEN 30 MG/DL (7-18); CALCIUM 8.4 MG/DL (8.5-10.1); CHLORIDE 106 MEQ/L (98-107); CREATININE 1.38 MG/DL (0.60-1.30); GLOMERULAR FILTRATION RATE 52 ML/MIN (>89); GLUCOSE,RANDOM 132 MG/DL (74-106); MAGNESIUM 2.1 MG/DL (1.5-2.5); PHOSPHORUS 4.1 MG/DL (2.5-4.9); SODIUM (NA) 138 MEQ/L (136-145); TOTAL BILIRUBIN ADULT 0.8 MG/DL (0.2-1.0)
[2018-01-08] MEDS ORDERED: RESP: ALBUTEROL 2.5 MG/3 ML NEB (PRN) NEB (17:30)
[2018-01-08 19:06] LABS: CREATININE, RANDOM URINE 192.8 MG/DL
[2018-01-08] MEDS: DOCUSATE SODIUM 50 MG/SENNA 8.6 MG TAB PO SCH (20:57)
--- NOTE | 2018-01-08 20:57 | RADRPT ---
EXAM DATE: 01/08/2018 8:53 PM EDT AGE/SEX: 67 years / Male INDICATIONS: leg swelling. CLINICAL DATA: This is the patient's initial encounter. Patient reports that signs and symptoms have been present for 1 day and indicates a pain score of Nonresponsive. MEDICAL/SURGICAL HISTORY: . Cardiovascular disease. . CABG Coronary artery stent. Carotid end arterectomy. COMPARISON: No prior exams available for comparison. No external comparison. TECHNIQUE: Venous ultrasound of both lower extremities was performed from the inguinal ligament to t he proximal calf. Real-time, color Doppler and spectral tracing, compression and augmentation techni ques were used. FINDINGS: Right Leg: There is normal compressibility of the deep venous system from the inguinal region to the proximal calf. No echogenic clot is seen in the lumen of the common femoral, femoral, popliteal, an d posterior tibial veins. There is a normal response of the venous system to proximal and distal aug mentation and respiration. Left Leg: There is normal compressibility of the deep venous system from the inguinal region to the proximal calf. No echogenic clot is seen in the lumen of the common femoral, femoral, popliteal, and posterior tibial veins. There is a normal response of the venous system to proximal and distal augm entation and respiration. CONCLUSION: 1. Negative for deep venous thrombosis bilateral lower extremities. Electronically signed by: Aurelio Camp MD 01/08/2018 8:55 PM EDT
--- NOTE | 2018-01-08 21:09 | RADRPT ---
EXAM DATE: 01/08/2018 9:05 PM EDT AGE/SEX: 67 years / Male INDICATIONS: Increased BUN and creatinine. CLINICAL DATA: This is the patient's initial encounter. Patient reports that signs and symptoms have been present for 1 day and indicates a pain score of Nonresponsive. MEDICAL/SURGICAL HISTORY: . Cardiovascular disease. . CABG Coronary artery stent. Carotid enda rterectomy. COMPARISON: No prior exams available for comparison. No external comparison. MEASUREMENTS: Right Kidney:__10.5 x 5.4 x 5.4 cm cm Left Kidney:__8.9 x 4.0 x 4.6 cm cm FINDINGS: Right Kidney: Normal in size without hydronephrosis. Left Kidney: Atrophic. No hydronephrosis. Bladder: Within normal limits given the degree of distension. CONCLUSION: 1. Atrophic left kidney. Right kidney unremarkable. No hydronephrosis. Electronically signed by: Aurelio Camp MD 01/08/2018 9:08 PM EDT
[2018-01-08] MEDS: RESP: ALBUTEROL 2.5 MG/IPRATROPIUM 0.5 MG NEB (SCH) NEB ×2 (21:13→23:36)
[2018-01-08] MEDS ORDERED: FUROSEMIDE 20 MG/2 ML VIAL IV PUSH ONE (21:45)
[2018-01-08] MEDS ORDERED: SUCCINYLCHOLINE CHLORIDE 200 MG/10 ML VIAL ONE (22:55)
[2018-01-08] MEDS ORDERED: SUCCINYLCHOLINE CHLORIDE 100 MG/5 ML SYRINGE IV PUSH ONE (23:00)
[2018-01-08] MEDS ORDERED: ETOMIDATE 20 MG/10 ML VIAL IV PUSH ONE (23:00)
[2018-01-08 23:04] LABS: TROPONIN I 0.14 NG/ML (0.02-0.05)
[2018-01-08] MEDS ORDERED: MIDAZOLAM 100 MG/100 ML INJ 100 ML IV PRN (23:15)
--- NOTE | 2018-01-08 23:43 | RADRPT ---
EXAM DATE: 01/08/2018 11:40 PM EDT AGE/SEX: 67 years / Male INDICATIONS: E-T tube placement. CLINICAL DATA: This is the patient's subsequent encounter. Patient reports that signs and symptoms h ave been present for 2 days and indicates a pain score of Nonresponsive. MEDICAL/SURGICAL HISTORY: Stroke. Coronary artery stent. CABG. COMPARISON: [facility] – [place], CHEST SINGLE AP, 01/08/2018. . FINDINGS: There has been development of prominent perihilar batwing infiltrates suggesting ARDS. The endotrache al tube, nasogastric tube are in good position. Clips and wires suggests CABG. There is no visible pn eumothorax. CONCLUSION: Interval involvement of ARDS with perihilar batwing infiltrates. ET tube is in excellent position Electronically signed by: Attila Araujo MD 01/08/2018 11:42 PM EDT
[2018-01-08] MEDS: MIDAZOLAM 50 MG/50 ML INJ 50 ML IV PRN (23:56)
[2018-01-08] MEDS: PROPOFOL 1000 MG/100 ML INJ 100 ML IV PRN (23:56)
[2018-01-08] MEDS: fentaNYL DRIP 250 ML IV PRN (23:57)
[2018-01-09] VITALS (16 sets, daily range): BP systolic 101–116; BP diastolic 57–66; PULSE 84–117; RESP 15–34; TEMP 98.3–99.5; O2SAT 95–100
[2018-01-09 04:24] LABS: AUTOMATED NEUTROPHIL # 10.7 TH/MM3 (1.8-7.7); BASOPHIL % 0.3 % (0.0-2.0); EOSINOPHIL % 0.1 % (0.0-4.0); HEMATOCRIT 36.3 % (39.0-51.0); HEMOGLOBIN 12.2 GM/DL (13.0-17.0); LYMPH % 5.9 % (9.0-44.0); LYMPHOCYTE # 0.7 TH/MM3 (1.0-4.8); MEAN CELL VOLUME 93.6 FL (80.0-100.0); MEAN CORPUSCULAR HEMOGLOBIN 31.4 PG (27.0-34.0); MEAN CORPUSCULAR HGB CONC 33.5 % (32.0-36.0); MEAN PLATELET VOLUME 9.3 FL (7.0-11.0); MONO % 7.7 % (0.0-8.0); MONOCYTE # 0.9 TH/MM3 (0-0.9); PLATELET COUNT 200 TH/MM3 (150-450); RED BLOOD COUNT 3.88 MIL/MM3 (4.50-5.90); RED CELL DISTRIBUTION WIDTH 14.3 % (11.6-17.2); WHITE BLOOD COUNT 12.4 TH/MM3 (4.0-11.0)
[2018-01-09] MEDS: RESP: ALBUTEROL 2.5 MG/IPRATROPIUM 0.5 MG NEB (SCH) NEB ×5 (04:31→20:31)
[2018-01-09 04:46] LABS: ALBUMIN 2.4 GM/DL (3.4-5.0); AST (GOT) 43 U/L (15-37); BICARBONATE 21.9 MEQ/L (21.0-32.0); BLOOD UREA NITROGEN 33 MG/DL (7-18); CALCIUM 8.4 MG/DL (8.5-10.1); CHLORIDE 106 MEQ/L (98-107); CREATININE 1.71 MG/DL (0.60-1.30); GLOMERULAR FILTRATION RATE 40 ML/MIN (>89); GLUCOSE,RANDOM 107 MG/DL (74-106); SODIUM (NA) 140 MEQ/L (136-145)
[2018-01-09 04:57] LABS: ALKALINE PHOSPHATASE 87 U/L (45-117); ALT (GPT) 44 U/L (12-78); FREE T4 1.35 NG/DL (0.76-1.46); PHOSPHORUS 4.4 MG/DL (2.5-4.9); TOTAL BILIRUBIN ADULT 0.9 MG/DL (0.2-1.0); TOTAL PROTEIN 6.6 GM/DL (6.4-8.2); TROPONIN I 0.23 NG/ML (0.02-0.05)
--- NOTE | 2018-01-09 05:28 | RADRPT ---
EXAM DATE: 01/09/2018 5:17 AM EDT AGE/SEX: 67 years / Male INDICATIONS: Shortness of breath, possible pulmonary disease. CLINICAL DATA: This is the patient's subsequent encounter. Patient reports that signs and symptoms h ave been present for 3 days and indicates a pain score of Nonresponsive. MEDICAL/SURGICAL HISTORY: Stroke. CABG. Coronary artery stent. COMPARISON: C, CHEST SINGLE AP, 01/08/2018. . FINDINGS: The endotracheal tube and nasogastric tube are both in good position. Dense perihilar batwing infiltr ates are unchanged. There is diffuse pulmonary interstitial prominence and airspace disease throughou t the lungs CONCLUSION: Perihilar infiltrates unchanged from the previous study. ET tube is in good position. Electronically signed by: Attila Araujo MD 01/09/2018 5:27 AM EDT
[2018-01-09 06:29] LABS: BILIRUBIN, URINE NEG (NEG); BLOOD, URINE TRACE (NEG); GLUCOSE,URINE NEG (NEG); KETONE, URINE NEG (NEG); MUCUS URINE FEW /lpf (OCC); NITRITE,URINE NEG (NEG); SQUAMOUS EPITHELIAL CELL URINE 3 /hpf (0-5); URINE COLOR YELLOW (YELLW/STRAW); URINE LEUKOCYTE ESTERASE SMALL (NEG)
[2018-01-09] MEDS ORDERED: Vancomycin Consult Pharmacy 1 EA OTHER SCH (06:30)
[2018-01-09] MEDS: CEFEPIME INJ 2,000 MG in SODIUM CHLORIDE 0.9% INJ 100 ML IV SCH ×2 (06:47→17:48)
[2018-01-09] MEDS: MIDAZOLAM 50 MG/50 ML INJ 50 ML IV PRN (07:34)
[2018-01-09] MEDS ORDERED: VANCOMYCIN INJ 1,200 MG in SODIUM CHLOR 0.9% 250 ML INJ 250 ML IV SCH (08:00)
[2018-01-09] MEDS: SODIUM CHLORIDE 0.9% FLUSH 10 ML FLUSH IV FLUSH PRN (08:01)
[2018-01-09] MEDS: ASPIRIN 81 MG CHEW TAB CHEW SCH (08:01)
[2018-01-09] MEDS: CHLORHEXIDINE 0.12% (ORAL KIT) 15 ML CUP MT SCH ×2 (08:01→19:50)
[2018-01-09] MEDS: SODIUM CHLORIDE 0.9% FLUSH 10 ML FLUSH IV FLUSH SCH ×2 (08:02→19:50)
[2018-01-09] MEDS: DOCUSATE SODIUM 50 MG/SENNA 8.6 MG TAB PO SCH ×2 (08:02→19:49)
[2018-01-09] MEDS: AZITHROMYCIN 250 MG TAB PO SCH (08:02)
[2018-01-09] MEDS: guaiFENesin E.R. 600 MG TAB PO SCH ×2 (09:00→19:50)
[2018-01-09 10:16] LABS: HEMOGLOBIN A1C 5.5 % (4.3-6.0)
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
--- NOTE | 2018-01-09 11:57 | HHI.PR ---
Subjective Remarks The patient deteriorated and went to respiratory failure. He is currently intubated on mechanical ventilator. Objective Vital Signs Date Time Temp Pulse Resp B/P (MAP) Pulse Ox O2 Delivery O2 Flow Rate FiO2 01/09/18 11:42 97 45 01/09/18 10:00 84 01/09/18 08:00 60 01/09/18 08:00 89 01/09/18 08:00 98.3 89 16 109/62 (78) 97 01/09/18 07:50 98 45 01/09/18 05:08 99 50 01/09/18 04:32 100 60 01/09/18 04:00 60 01/09/18 04:00 98.7 90 16 101/62 (75) 99 01/09/18 00:33 96 70 01/09/18 00:00 90 17 103/66 (78) 99 01/09/18 00:00 100 01/08/18 23:08 93 100 01/08/18 22:00 98.1 112 35 145/101 (116) 93 01/08/18 21:13 92 Non-Rebreather 15.00 100 01/08/18 20:00 99.0 145 30 159/83 (108) 98 01/08/18 18:00 98.9 88 25 128/80 (96) 93 01/08/18 16:00 83 24 134/86 (102) 99 01/08/18 14:00 99.1 81 26 128/77 (94) 92 01/08/18 12:00 97.8 98 17 100/67 (78) 92 I/O 01/08/18 01/08/18 01/08/18 01/09/18 01/09/18 01/09/18 07:00 15:00 23:00 07:00 15:00 23:00 Intake Total 480 ml 38.8 ml Output Total 300 ml 200 ml 200 ml Balance -300 ml 280 ml -200 ml 38.8 ml Intake Oral 480 ml IV Total 38.8 ml Output Urine Total 300 ml 200 ml 200 ml # Voids 1 # Bowel Movements 0 0 Result Diagram: 01/09/18 0301 01/09/18 0301 Objective Remarks Physical exam: General appearance: Intubated Head and neck examination: ET tube Neck: [supple trachea midline] Lungs: Mild basilar crackles Heart: [normal S1-S2] Abdomen: [soft nontender positive bowel sounds] Extremities: [no significant edema no cyanosis] Neurological examination: [nonfocal sedated Skin: [no rashes seen] Assessment and Plan Assessment and Plan Acute ventilator dependent respiratory failure Severe pneumonia Hemoptysis Continue current antibiotics Follow-up on the results of sputum AFB Mechanical ventilator management as per the ski patrol officer GI DVT prevention Appreciate help from the medical ski patrol officer Vasiliy Rojas MD Jan 09, 2018 11:57
[2018-01-09] MEDS ORDERED: DEXTROSE 50% IN WATER 50 ML VIAL(D50) IV PUSH PRN (12:45)
[2018-01-09] MEDS ORDERED: GLUCAGON 1 MG/ML VIAL OTHER PRN (12:45)
[2018-01-09] MEDS: INSULIN ASPART SUPPLEMENTAL SCALE SQ SCH ×2 (12:45→17:49)
--- NOTE | 2018-01-09 12:55 | PD.CARD.PN ---
Subjective Subjective Remarks Transferred to ICU by pulmonary, intubated last night due to respiratory failure Telemetry sinus rhythm in the 80s Still with hemoptysis Objective Medications Current Medications Medications (Trade) Dose Ordered Sig/Herber Route Start Time Stop Time Status Last Admin (NS Flush) 2 ml BID IV FLUSH 01/07/18 21:00 01/09/18 08:02 (NS Flush) 2 ml UNSCH PRN IV FLUSH 01/07/18 13:00 01/09/18 08:01 (Zithromax) 500 mg Taper DAILY PO 01/08/18 13:00 01/13/18 12:59 01/09/18 08:02 (Apresoline) 10 mg Q45M PRN PO 01/07/18 15:00 (Aspirin Chew) 81 mg DAILY CHEW 01/08/18 09:00 01/09/18 08:01 (Lopressor) 25 mg Q12HR PO 01/07/18 21:00 Future Hold 01/08/18 20:57 (Mucinex Er) 600 mg BID PO 01/08/18 11:15 01/08/18 20:57 (Tylenol) 650 mg Q4H PRN PO 01/08/18 11:30 (Zofran Odt) 4 mg Q6H PRN PO 01/08/18 12:15 (Reglan Inj) 5 mg Q6H PRN IV PUSH 01/08/18 11:30 (Tylenol) 650 mg Q6H PRN PO 01/08/18 11:30 (Percocet 5-325 Mg) 1 tab Q6H PRN PO 01/08/18 11:30 (Percocet 10-325 Mg) 1 tab Q6H PRN PO 01/08/18 11:30 01/08/18 12:22 (Morphine Inj) 2 mg Q3H PRN IV PUSH 01/08/18 12:15 (Morphine Inj) 4 mg Q3H PRN IV PUSH 01/08/18 12:15 (Narcan Inj) 0.4 mg UNSCH PRN IV PUSH 01/08/18 11:30 (Lashay-Colace) 1 tab BID PO 01/08/18 21:00 01/09/18 08:02 (Milk Of Magnesia Liq) 30 ml Q12H PRN PO 01/08/18 11:30 (Senokot) 17.2 mg Q12H PRN PO 01/08/18 11:30 (Dulcolax Supp) 10 mg DAILY PRN RECTAL 01/08/18 11:30 (Lactulose Liq) 30 ml DAILY PRN PO 01/08/18 11:30 (Robitussin Ac 200-20 Mg/10 ml Liq) 5 ml Q6H PRN PO 01/08/18 14:00 (Duoneb Neb) 1 ampule Q4HR NEB NEB 01/08/18 20:00 01/09/18 11:41 (Albuterol Neb) 2.5 mg Q2HR NEB PRN NEB 01/08/18 17:30 (Peridex 0.12% Liq) 15 ml BID@08,20 MT 01/09/18 08:00 01/09/18 08:01 Propofol 100 ml @ 1.95 mls/hr TITRATE PRN IV 01/08/18 23:15 01/08/18 23:56 Fentanyl Citrate 250 ml @ 5 mls/hr TITRATE PRN IV 01/08/18 23:15 01/08/18 23:57 Pharmacy Profile Note 0 ml @ 0 mls/hr UNSCH OTHER 01/09/18 06:30 Cefepime HCl 2000 mg/Sodium Chloride 100 ml @ 200 mls/hr Q12H IV 01/09/18 06:30 01/09/18 06:47 Vancomycin HCl 1250 mg/Sodium Chloride 262.5 ml @ 250 mls/hr Q24H IV 01/10/18 08:00 ([facility] Ordered Lab Info) SPECIFIC LAB TO BE DRAWN:VANCOMYCIN TROUGH DATE TO... ONCE ONCE .XX 01/12/18 07:45 01/12/18 07:46 Dextrose/Sodium Chloride 1,000 ml @ 70 mls/hr [id number] IV 01/09/18 12:45 (D50w (Vial) Inj) 50 ml UNSCH PRN IV PUSH 01/09/18 12:45 (Glucagon Inj) 1 mg UNSCH PRN OTHER 01/09/18 12:45 (NovoLOG SUPPLEMENTAL SCALE) 1 Q6H SQ 01/09/18 12:45 UNV (Heparin Inj) 5,000 units Q12HR SQ 01/09/18 21:00 UNV Vital Signs / I&O Vital Signs Date Time Temp Pulse Resp B/P (MAP) Pulse Ox O2 Delivery O2 Flow Rate FiO2 01/09/18 12:00 60 01/09/18 12:00 94 01/09/18 12:00 99.0 94 34 105/57 (73) 96 01/09/18 11:42 97 45 01/09/18 10:00 84 01/09/18 08:00 60 01/09/18 08:00 89 01/09/18 08:00 98.3 89 16 109/62 (78) 97 01/09/18 07:50 98 45 01/09/18 05:08 99 50 01/09/18 04:32 100 60 01/09/18 04:00 60 01/09/18 04:00 98.7 90 16 101/62 (75) 99 01/09/18 00:33 96 70 01/09/18 00:00 90 17 103/66 (78) 99 01/09/18 00:00 100 01/08/18 23:08 93 100 01/08/18 22:00 98.1 112 35 145/101 (116) 93 01/08/18 21:13 92 Non-Rebreather 15.00 100 01/08/18 20:00 99.0 145 30 159/83 (108) 98 01/08/18 18:00 98.9 88 25 128/80 (96) 93 01/08/18 16:00 83 24 134/86 (102) 99 01/08/18 14:00 99.1 81 26 128/77 (94) 92 I/O 01/08/18 01/08/18 01/08/18 01/09/18 01/09/18 01/09/18 07:00 15:00 23:00 07:00 15:00 23:00 Intake Total 480 ml 400.8 ml Output Total 300 ml 200 ml 200 ml Balance -300 ml 280 ml -200 ml 400.8 ml Intake Oral 480 ml IV Total 400.8 ml Output Urine Total 300 ml 200 ml 200 ml # Voids 1 # Bowel Movements 0 0 Physical Exam GENERAL: Intubated and sedated SKIN: Warm and dry. HEAD: Atraumatic. Normocephalic. EYES: Pupils equal and round. No scleral icterus. No injection or drainage. ENT: No nasal bleeding or discharge. Mucous membranes pink and moist. NECK: Trachea midline. No JVD. CARDIOVASCULAR: Regular rate and rhythm. RESPIRATORY: No accessory muscle use. Decreased breath sounds with scattered rhonchi GASTROINTESTINAL: Abdomen soft, non-tender, nondistended. Hepatic and splenic margins not palpable. MUSCULOSKELETAL: Extremities without clubbing, cyanosis, or edema. No obvious deformities. NEUROLOGICAL: Intubated and sedated Laboratory Laboratory Tests Test 01/08/18 14:47 01/08/18 15:00 01/08/18 15:40 01/08/18 15:41 Nasal Screen MRSA (PCR) MRSA NOT DETECTED Blood Gas Puncture Site LT RADIAL Blood Gas Patient Temperature 98.6 Blood Gas HCO3 21 mmol/L Blood Gas Base Excess -3.2 mmol/L Blood Gas Oxygen Saturation 94 % Arterial Blood pH 7.39 Arterial Blood Partial Pressure CO2 35 mmHg Arterial Blood Partial Pressure O2 96 mmHg Arterial Blood Oxygen Content 16.6 Vol % Arterial Blood Carboxyhemoglobin 0.6 % Arterial Blood Methemoglobin 1.8 % Blood Gas Hemoglobin 12.5 G/DL Oxygen Delivery Device PARTIAL REBREATHER Blood Gas Liter Flow 15 L/M Urine Eosinophils NONE SEEN /HPF Urine Random Creatinine 192.8 MG/DL Urine Random Sodium 12 MEQ/L Total Creatine Kinase 602 U/L Creatine Kinase MB 1.7 NG/ML Creatine Kinase MB % 0.3 % Troponin I 0.22 NG/ML Test 01/08/18 16:20 01/08/18 16:30 01/08/18 21:50 01/09/18 00:25 B-Type Natriuretic Peptide 1230 PG/ML White Blood Count 13.0 TH/MM3 Red Blood Count 4.04 MIL/MM3 Hemoglobin 12.6 GM/DL Hematocrit 37.7 % Mean Corpuscular Volume 93.1 FL Mean Corpuscular Hemoglobin 31.1 PG Mean Corpuscular Hemoglobin Concent 33.4 % Red Cell Distribution Width 14.6 % Platelet Count 205 TH/MM3 Mean Platelet Volume 9.5 FL Neutrophils (%) (Auto) 84.6 % Lymphocytes (%) (Auto) 6.3 % Monocytes (%) (Auto) 8.7 % Eosinophils (%) (Auto) 0.1 % Basophils (%) (Auto) 0.3 % Neutrophils # (Auto) 11.0 TH/MM3 Lymphocytes # (Auto) 0.8 TH/MM3 Monocytes # (Auto) 1.1 TH/MM3 Eosinophils # (Auto) 0.0 TH/MM3 Basophils # (Auto) 0.0 TH/MM3 CBC Comment DIFF FINAL Differential Comment Blood Urea Nitrogen 30 MG/DL Creatinine 1.38 MG/DL Random Glucose 132 MG/DL Total Protein 7.0 GM/DL Albumin 2.5 GM/DL Calcium Level 8.4 MG/DL Phosphorus Level 4.1 MG/DL Magnesium Level 2.1 MG/DL Alkaline Phosphatase 90 U/L Aspartate Amino Transf (AST/SGOT) 57 U/L Alanine Aminotransferase (ALT/SGPT) 47 U/L Total Bilirubin 0.8 MG/DL Sodium Level 138 MEQ/L Potassium Level 3.8 MEQ/L Chloride Level 106 MEQ/L Carbon Dioxide Level 21.1 MEQ/L Anion Gap 11 MEQ/L Estimat Glomerular Filtration Rate 52 ML/MIN Lactic Acid Level 1.3 mmol/L Total Creatine Kinase 654 U/L Creatine Kinase MB 2.2 NG/ML Creatine Kinase MB % 0.3 % Troponin I 0.14 NG/ML Blood Gas Puncture Site RT RADIAL Blood Gas Patient Temperature 98.6 Blood Gas HCO3 20 mmol/L Blood Gas Base Excess -4.6 mmol/L Blood Gas Oxygen Saturation 96 % Arterial Blood pH 7.33 Arterial Blood Partial Pressure CO2 39 mmHg Arterial Blood Partial Pressure O2 173 mmHg Arterial Blood Oxygen Content 18.1 Vol % Arterial Blood Carboxyhemoglobin 0.3 % Arterial Blood Methemoglobin 2.0 % Blood Gas Hemoglobin 13.2 G/DL Oxygen Delivery Device VENTILATOR Blood Gas Ventilator Setting 16/500/IT1.0/10PEEP Blood Gas Inspired Oxygen 100 % Test 01/09/18 03:01 01/09/18 04:30 White Blood Count 12.4 TH/MM3 Red Blood Count 3.88 MIL/MM3 Hemoglobin 12.2 GM/DL Hematocrit 36.3 % Mean Corpuscular Volume 93.6 FL Mean Corpuscular Hemoglobin 31.4 PG Mean Corpuscular Hemoglobin Concent 33.5 % Red Cell Distribution Width 14.3 % Platelet Count 200 TH/MM3 Mean Platelet Volume 9.3 FL Neutrophils (%) (Auto) 86.0 % Lymphocytes (%) (Auto) 5.9 % Monocytes (%) (Auto) 7.7 % Eosinophils (%) (Auto) 0.1 % Basophils (%) (Auto) 0.3 % Neutrophils # (Auto) 10.7 TH/MM3 Lymphocytes # (Auto) 0.7 TH/MM3 Monocytes # (Auto) 0.9 TH/MM3 Eosinophils # (Auto) 0.0 TH/MM3 Basophils # (Auto) 0.0 TH/MM3 CBC Comment DIFF FINAL Differential Comment Blood Urea Nitrogen 33 MG/DL Creatinine 1.71 MG/DL Random Glucose 107 MG/DL Total Protein 6.6 GM/DL Albumin 2.4 GM/DL Calcium Level 8.4 MG/DL Phosphorus Level 4.4 MG/DL Magnesium Level 2.0 MG/DL Alkaline Phosphatase 87 U/L Aspartate Amino Transf (AST/SGOT) 43 U/L Alanine Aminotransferase (ALT/SGPT) 44 U/L Total Bilirubin 0.9 MG/DL Sodium Level 140 MEQ/L Potassium Level 4.0 MEQ/L Chloride Level 106 MEQ/L Carbon Dioxide Level 21.9 MEQ/L Anion Gap 12 MEQ/L Estimat Glomerular Filtration Rate 40 ML/MIN Hemoglobin A1c 5.5 % Total Creatine Kinase 632 U/L Creatine Kinase MB 1.8 NG/ML Creatine Kinase MB % 0.3 % Troponin I 0.23 NG/ML B-Type Natriuretic Peptide 1061 PG/ML Free Thyroxine 1.35 NG/DL Thyroid Stimulating Hormone 3rd Gen 2.410 uIU/ML Urine Color YELLOW Urine Turbidity HAZY Urine pH 5.0 Urine Specific [place] 1.014 Urine Protein TRACE mg/dL Urine Glucose (UA) NEG mg/dL Urine Ketones NEG mg/dL Urine Occult Blood TRACE Urine Nitrite NEG Urine Bilirubin NEG Urine Urobilinogen LESS THAN 2.0 MG/DL Urine Leukocyte Esterase SMALL Urine RBC LESS THAN 1 /hpf Urine WBC 4 /hpf Urine Squamous Epithelial Cells 3 /hpf Urine Mucus FEW /lpf Microscopic Urinalysis Comment CATH-CULT NOT IND Imaging Last 24 hours Impressions Chest X-Ray 01/09/18 0000 Signed Impressions: CONCLUSION: Perihilar infiltrates unchanged from the previous study. ET tube is in good pos ition. Assessment and Plan Problem List: (1) Bilateral pneumonia ICD Codes: J18.9 - Pneumonia, unspecified organism Status: Acute (2) Hypoxia ICD Codes: R09.02 - Hypoxemia Status: Acute (3) Tachyarrhythmia ICD Codes: R00.0 - Tachycardia, unspecified Status: Acute (4) Paroxysmal atrial flutter ICD Codes: I48.92 - Unspecified atrial flutter Status: Acute Assessment and Plan 1) SOB secondary to PNA Bloody mucus, ruling out TB s/p intubation for respiratory failure 2) Aflutter with RVR, now in sinus rhythm Most likely potentiated by his underlying illness Not an anti-coagulation candidate at this time due to hemoptysis 3) 2D echo pending 4) 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 Lamar Echo to evaluate aortic valve with surgery 5) Abdominal aortic aneurysm Follow up with Dr. Lamar 6) Tobacco cessation 7) Elevated troponins Type 2 in nature due to underlying illness/hypoxemia Medical management as he is not an invasive candidate with hemoptysis This can be reevaluated through out the hospital course and outpt Problem Qualifiers (1) Bilateral pneumonia: Qualified Codes: J18.1 - Lobar pneumonia, unspecified organism Atul Galan DO Jan 09, 2018 12:55
[2018-01-09] MEDS: DEXT 5%-NACL 0.45% 1000 ML INJ 1,000 ML IV SCH (13:37)
--- NOTE | 2018-01-09 13:46 | ECHRPT ---
Indication: CONCLUSIONS Technically difficult study. Moderately dilated left ventricle. The left ventricular systolic function is severely reduced with an estimated ejection fraction in th e range of 30-35%. The right ventricular systoilc function is mildly decreased. Not well visualized, but most likely [place] aortic valve. There is trace tricuspid valve regurgitation. BP: / HR: Rhythm: MEASUREMENTS (Male / Female) Normal Values Technical Quality:Technically difficult study 2D ECHO LV Diastolic Diameter PLAX 6.1 cm 4.2 - 5.9 / 3.9 - 5.3 cm LV Systolic Diameter PLAX 5.3 cm IVS Diastolic Thickness 1.0 cm 0.6 - 1.0 / 0.6 - 0.9 cm LVPW Diastolic Thickness 0.7 cm 0.6 - 1.0 / 0.6 - 0.9 cm LV Relative Wall Thickness 0.3 RV Internal Dim ED PLAX 1.8 cm DOPPLER Mitral E Point Velocity 92.3 cm/s Mitral A Point Velocity 67.6 cm/s Mitral E to A Ratio 1.4 TR Peak Velocity 222.0 cm/s TR Peak Gradient 19.7 mmHg Right Atrial Pressure 10.0 mmHg Pulmonary Artery Systolic Pressu 29.7 mmHg Right Ventricular Systolic Press 29.7 mmHg FINDINGS LEFT VENTRICLE Moderately dilated left ventricle. Wall thickness is normal. The left ventricular systolic function is severely reduced with an estimated ejection fraction in th e range of 30-35%. There is global left ventricular dysfunction. Akinetic mid to apical anterior septal wall motion. RIGHT VENTRICLE Normal right ventricular size. The right ventricular systoilc function is mildly decreased. LEFT ATRIUM The left atrium was not well visualized. RIGHT ATRIUM The right atrium is not well visualized. ATRIAL SEPTUM Normal atrial septal thickness AORTA The aortic root and proximal ascending aorta are not well visualized. MITRAL VALVE Grossly normal mitral valve. No mitral valve stenosis or regurgitation. AORTIC VALVE Not well visualized, but most likely [place] aortic valve. No aortic valve stenosis or regurgitation . TRICUSPID VALVE Grossly normal There is trace tricuspid valve regurgitation. No tricuspid valve stenosis. The estimated pulmonary arterial pressure is 30 mmHg. PULMONARY VALVE No pulmonary valve regurgitation or stenosis. VESSELS The inferior vena cava was not well visualized. PERICARDIUM No pericardial effusion. Atul Galan DO (Electronically Signed) Final Date:09 January 2018 13:45
[2018-01-09] MEDS ORDERED: PILL SPLITTER OTHER PRN (16:15)
[2018-01-09] MEDS: METOPROLOL TARTRATE 25 MG TAB PO SCH ×2 (16:38→19:49)
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
[2018-01-09] MEDS: fentaNYL DRIP 250 ML IV PRN (18:32)
[2018-01-09] MEDS: HEPARIN SODIUM - SQ 10,000 UNITS/ML VIAL SQ SCH (19:50)
[2018-01-09] MEDS ORDERED: METOPROLOL TARTRATE 25 MG TAB PO SCH (21:00)
[2018-01-10] VITALS (22 sets, daily range): BP systolic 102–156; BP diastolic 56–80; PULSE 81–99; RESP 11–39; TEMP 97.9–100.7; O2SAT 92–100
[2018-01-10] MEDS: RESP: ALBUTEROL 2.5 MG/IPRATROPIUM 0.5 MG NEB (SCH) NEB ×7 (00:02→23:55)
[2018-01-10] MEDS: DEXT 5%-NACL 0.45% 1000 ML INJ 1,000 ML IV SCH (05:00)
[2018-01-10] MEDS: CEFEPIME INJ 2,000 MG in SODIUM CHLORIDE 0.9% INJ 100 ML IV SCH ×2 (05:00→17:46)
[2018-01-10] MEDS: INSULIN ASPART SUPPLEMENTAL SCALE SQ SCH ×5 (05:20→23:21)
[2018-01-10] MEDS: PROPOFOL 1000 MG/100 ML INJ 100 ML IV PRN ×2 (05:21→22:01)
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
[2018-01-10 07:39] LABS: AUTOMATED NEUTROPHIL # 6.9 TH/MM3 (1.8-7.7); BASOPHIL % 0.4 % (0.0-2.0); EOSINOPHIL # 0.1 TH/MM3 (0-0.4); EOSINOPHIL % 1.7 % (0.0-4.0); HEMATOCRIT 31.4 % (39.0-51.0); HEMOGLOBIN 10.5 GM/DL (13.0-17.0); LYMPH % 9.5 % (9.0-44.0); LYMPHOCYTE # 0.8 TH/MM3 (1.0-4.8); MEAN CELL VOLUME 93.8 FL (80.0-100.0); MEAN CORPUSCULAR HEMOGLOBIN 31.4 PG (27.0-34.0); MEAN CORPUSCULAR HGB CONC 33.5 % (32.0-36.0); MEAN PLATELET VOLUME 9.6 FL (7.0-11.0); MONO % 10.3 % (0.0-8.0); MONOCYTE # 0.9 TH/MM3 (0-0.9); NEUT % 78.1 % (16.0-70.0); PLATELET COUNT 183 TH/MM3 (150-450); RED BLOOD COUNT 3.34 MIL/MM3 (4.50-5.90); RED CELL DISTRIBUTION WIDTH 14.4 % (11.6-17.2); WHITE BLOOD COUNT 8.9 TH/MM3 (4.0-11.0)
[2018-01-10] MEDS: VANCOMYCIN INJ 1,250 MG in SODIUM CHLOR 0.9% 250 ML INJ 250 ML IV SCH (07:51)
[2018-01-10] MEDS: ASPIRIN 81 MG CHEW TAB CHEW SCH (07:52)
[2018-01-10] MEDS: CHLORHEXIDINE 0.12% (ORAL KIT) 15 ML CUP MT SCH ×2 (07:52→20:00)
[2018-01-10] MEDS: SODIUM CHLORIDE 0.9% FLUSH 10 ML FLUSH IV FLUSH SCH ×2 (07:52→20:31)
[2018-01-10] MEDS: SODIUM CHLORIDE 0.9% FLUSH 10 ML FLUSH IV FLUSH PRN (07:52)
[2018-01-10] MEDS: DOCUSATE SODIUM 50 MG/SENNA 8.6 MG TAB PO SCH ×2 (07:53→20:32)
[2018-01-10] MEDS: HEPARIN SODIUM - SQ 10,000 UNITS/ML VIAL SQ SCH ×2 (07:53→20:31)
[2018-01-10] MEDS: AZITHROMYCIN 250 MG TAB PO SCH (07:53)
[2018-01-10] MEDS: METOPROLOL TARTRATE 25 MG TAB PO SCH ×2 (07:53→20:31)
[2018-01-10] MEDS: FAMOTIDINE 20 MG/2 ML VIAL IV PUSH SCH ×2 (07:54→20:31)
[2018-01-10] MEDS ORDERED: FUROSEMIDE 40 MG/4 ML VIAL IV PUSH ONE (08:00)
[2018-01-10 08:13] LABS: ALBUMIN 1.9 GM/DL (3.4-5.0); AST (GOT) 45 U/L (15-37); BICARBONATE 21.3 MEQ/L (21.0-32.0); BLOOD UREA NITROGEN 37 MG/DL (7-18); CALCIUM 7.9 MG/DL (8.5-10.1); CHLORIDE 109 MEQ/L (98-107); CREATININE 1.51 MG/DL (0.60-1.30); GLOMERULAR FILTRATION RATE 47 ML/MIN (>89); GLUCOSE,RANDOM 112 MG/DL (74-106); SODIUM (NA) 141 MEQ/L (136-145)
[2018-01-10 08:16] LABS: ALKALINE PHOSPHATASE 90 U/L (45-117); ALT (GPT) 42 U/L (12-78); TOTAL BILIRUBIN ADULT 0.5 MG/DL (0.2-1.0); TOTAL PROTEIN 5.9 GM/DL (6.4-8.2)
[2018-01-10] MEDS: guaiFENesin E.R. 600 MG TAB PO SCH ×2 (09:00→20:32)
[2018-01-10 10:05] LABS: AUTOMATED NEUTROPHIL # 6.8 TH/MM3 (1.8-7.7); BASOPHIL % 0.6 % (0.0-2.0); EOSINOPHIL # 0.3 TH/MM3 (0-0.4); EOSINOPHIL % 2.9 % (0.0-4.0); HEMATOCRIT 32.7 % (39.0-51.0); LYMPH % 9.6 % (9.0-44.0); LYMPHOCYTE # 0.8 TH/MM3 (1.0-4.8); MEAN CELL VOLUME 93.2 FL (80.0-100.0); MEAN CORPUSCULAR HEMOGLOBIN 31.4 PG (27.0-34.0); MEAN CORPUSCULAR HGB CONC 33.7 % (32.0-36.0); MONO % 9.1 % (0.0-8.0); MONOCYTE # 0.8 TH/MM3 (0-0.9); NEUT % 77.8 % (16.0-70.0); PLATELET COUNT 208 TH/MM3 (150-450); RED BLOOD COUNT 3.51 MIL/MM3 (4.50-5.90); RED CELL DISTRIBUTION WIDTH 14.6 % (11.6-17.2); WHITE BLOOD COUNT 8.8 TH/MM3 (4.0-11.0)
[2018-01-10 10:21] LABS: ALBUMIN 2.1 GM/DL (3.4-5.0); AST (GOT) 52 U/L (15-37); BICARBONATE 21.5 MEQ/L (21.0-32.0); BLOOD UREA NITROGEN 35 MG/DL (7-18); CALCIUM 8.1 MG/DL (8.5-10.1); CHLORIDE 108 MEQ/L (98-107); CREATININE 1.45 MG/DL (0.60-1.30); GLOMERULAR FILTRATION RATE 49 ML/MIN (>89); GLUCOSE,RANDOM 108 MG/DL (74-106); SODIUM (NA) 141 MEQ/L (136-145)
[2018-01-10 10:22] LABS: ALT (GPT) 51 U/L (12-78)
[2018-01-10 10:25] LABS: ALKALINE PHOSPHATASE 103 U/L (45-117); TOTAL BILIRUBIN ADULT 0.5 MG/DL (0.2-1.0); TOTAL PROTEIN 6.4 GM/DL (6.4-8.2)
[2018-01-10] MEDS ORDERED: MAGNESIUM SULFATE INJ 2 GM in SODIUM CHLORIDE 0.9% INJ 96 ML IV PRN (10:45)
[2018-01-10] MEDS ORDERED: POTASSIUM PHOSPHATE MONOBASIC 500 MG TAB PO PRN (10:45)
[2018-01-10] MEDS ORDERED: POTASSIUM PHOSPHATE INJ 30 MMOL in SODIUM CHLOR 0.9% 250 ML INJ 250 ML IV PRN (10:45)
[2018-01-10] MEDS ORDERED: POTASSIUM CHLOR 40 MEQ PREMIX 100 ML IV PRN ×2 (10:45)
[2018-01-10] MEDS ORDERED: POTASSIUM PHOSPHATE MONOBASIC 500 MG TAB PO/TUBE PRN (10:45)
[2018-01-10] MEDS ORDERED: SODIUM PHOSPHATE INJ 30 MMOL in SODIUM CHLOR 0.9% 250 ML INJ 240 ML IV PRN (10:45)
[2018-01-10] MEDS ORDERED: MAGNESIUM OXIDE 400 MG TAB PO PRN (10:45)
[2018-01-10] MEDS ORDERED: MAGNESIUM SULFATE INJ 4 GM in SODIUM CHLORIDE 0.9% INJ 92 ML IV PRN (10:45)
[2018-01-10] MEDS ORDERED: POTASSIUM CHLORIDE 25 MEQ EFFERVESCENT TAB PO PRN (10:45)
[2018-01-10] MEDS ORDERED: POTASSIUM CHLOR 20 MEQ PREMIX 100 ML IV PRN (10:45)
[2018-01-10] MEDS: POTASSIUM CHLOR 20 MEQ PREMIX 100 ML IV PRN ×4 (11:22→17:47)
[2018-01-10] MEDS: fentaNYL DRIP 250 ML IV PRN (11:26)
--- NOTE | 2018-01-10 11:37 | RADRPT ---
EXAM DATE: 01/10/2018 11:35 AM EDT AGE/SEX: 67 years / Male INDICATIONS: Respiratory distress. CLINICAL DATA: This is the patient's subsequent encounter. Patient reports that signs and symptoms h ave been present for 4 - 6 days and indicates a pain score of Nonresponsive. MEDICAL/SURGICAL HISTORY: . Stroke. CABG. Coronary artery stent. COMPARISON: [facility] [place], CHEST SINGLE AP, 01/09/2018. . FINDINGS: ET tube in good position. Nasogastric tube across the GE junction. Interval improvement with less per ihilar interstitial edema. No pneumothorax. No pleural effusion. Sternal wires from previous bypass a re noted. Cardiac silhouette is appropriate. CONCLUSION: Interval improvement with less interstitial edema. Electronically signed by: Yovanny Seymour MD 01/10/2018 11:36 AM EDT
[2018-01-10] MEDS: ACETAMINOPHEN 325 MG TAB PO PRN (11:51)
--- NOTE | 2018-01-10 11:53 | PD.CARD.PN ---
Subjective Subjective Remarks Telemetry sinus rhythm in the 80s Still with hemoptysis Objective Medications Current Medications Medications (Trade) Dose Ordered Sig/Herber Route Start Time Stop Time Status Last Admin (NS Flush) 2 ml BID IV FLUSH 01/07/18 21:00 01/10/18 07:52 (NS Flush) 2 ml UNSCH PRN IV FLUSH 01/07/18 13:00 01/10/18 07:52 (Zithromax) 250 mg Taper DAILY PO 01/08/18 13:00 01/13/18 12:59 01/10/18 07:53 (Apresoline) 10 mg Q45M PRN PO 01/07/18 15:00 (Aspirin Chew) 81 mg DAILY CHEW 01/08/18 09:00 01/10/18 07:52 (Mucinex Er) 600 mg BID PO 01/08/18 11:15 01/08/18 20:57 (Tylenol) 650 mg Q4H PRN PO 01/08/18 11:30 (Zofran Odt) 4 mg Q6H PRN PO 01/08/18 12:15 (Reglan Inj) 5 mg Q6H PRN IV PUSH 01/08/18 11:30 (Tylenol) 650 mg Q6H PRN PO 01/08/18 11:30 (Percocet 5-325 Mg) 1 tab Q6H PRN PO 01/08/18 11:30 (Percocet 10-325 Mg) 1 tab Q6H PRN PO 01/08/18 11:30 01/08/18 12:22 (Morphine Inj) 2 mg Q3H PRN IV PUSH 01/08/18 12:15 (Morphine Inj) 4 mg Q3H PRN IV PUSH 01/08/18 12:15 (Narcan Inj) 0.4 mg UNSCH PRN IV PUSH 01/08/18 11:30 (Lashay-Colace) 1 tab BID PO 01/08/18 21:00 01/10/18 07:53 (Milk Of Magnesia Liq) 30 ml Q12H PRN PO 01/08/18 11:30 (Senokot) 17.2 mg Q12H PRN PO 01/08/18 11:30 (Dulcolax Supp) 10 mg DAILY PRN RECTAL 01/08/18 11:30 (Lactulose Liq) 30 ml DAILY PRN PO 01/08/18 11:30 (Robitussin Ac 200-20 Mg/10 ml Liq) 5 ml Q6H PRN PO 01/08/18 14:00 (Duoneb Neb) 1 ampule Q4HR NEB NEB 01/08/18 20:00 01/10/18 08:15 (Albuterol Neb) 2.5 mg Q2HR NEB PRN NEB 01/08/18 17:30 (Peridex 0.12% Liq) 15 ml BID@08,20 MT 01/09/18 08:00 01/10/18 07:52 Propofol 100 ml @ 1.95 mls/hr TITRATE PRN IV 01/08/18 23:15 01/10/18 05:21 Fentanyl Citrate 250 ml @ 5 mls/hr TITRATE PRN IV 01/08/18 23:15 01/10/18 11:26 Pharmacy Profile Note 0 ml @ 0 mls/hr UNSCH OTHER 01/09/18 06:30 Cefepime HCl 2000 mg/Sodium Chloride 100 ml @ 200 mls/hr Q12H IV 01/09/18 06:30 01/10/18 05:00 Vancomycin HCl 1250 mg/Sodium Chloride 262.5 ml @ 250 mls/hr Q24H IV 01/10/18 08:00 01/10/18 07:51 ([facility] Ordered Lab Info) SPECIFIC LAB TO BE DRAWN:VANCOMYCIN TROUGH DATE TO... ONCE ONCE .XX 01/12/18 07:45 01/12/18 07:46 (D50w (Vial) Inj) 50 ml UNSCH PRN IV PUSH 01/09/18 12:45 (Glucagon Inj) 1 mg UNSCH PRN OTHER 01/09/18 12:45 (NovoLOG SUPPLEMENTAL SCALE) 1 Q6HR SQ 01/09/18 12:45 01/09/18 17:49 (Heparin Inj) 5,000 units Q12HR SQ 01/09/18 21:00 01/10/18 07:53 (Pill Splitter) 1 ea UNSCH PRN OTHER 01/09/18 16:15 (Lopressor) 12.5 mg Q12HR PO 01/09/18 16:15 01/10/18 07:53 (Pepcid Inj) 10 mg Q12H IV PUSH 01/10/18 09:00 01/10/18 07:54 Potassium Chloride 100 ml @ 50 mls/hr Q2H PRN IV 01/10/18 10:45 Potassium Chloride 100 ml @ 50 mls/hr Q2H PRN IV 01/10/18 10:45 01/10/18 11:22 (K-Lyte Cl Eff) 50 meq UNSCH PRN PO 01/10/18 10:45 Potassium Chloride 100 ml @ 25 mls/hr UNSCH PRN IV 01/10/18 10:45 Potassium Chloride 100 ml @ 50 mls/hr Q2H PRN IV 01/10/18 10:45 Magnesium Sulfate 4 gm/Sodium Chloride 100 ml @ 50 mls/hr UNSCH PRN IV 01/10/18 10:45 (Mag-Ox) 800 mg UNSCH PRN PO 01/10/18 10:45 Magnesium Sulfate 2 gm/Sodium Chloride 100 ml @ 50 mls/hr UNSCH PRN IV 01/10/18 10:45 (K-Phos) 2,000 mg Q4H PRN PO 01/10/18 10:45 Sodium Phosphate 30 mmol/Sodium Chloride 250 ml @ 42 mls/hr UNSCH PRN IV 01/10/18 10:45 (K-Phos) 2,000 mg UNSCH PRN PO/TUBE 01/10/18 10:45 Potassium Phosphate 30 mmol/ Sodium Chloride 260 ml @ 42 mls/hr UNSCH PRN IV 01/10/18 10:45 Vital Signs / I&O Vital Signs Date Time Temp Pulse Resp B/P (MAP) Pulse Ox O2 Delivery O2 Flow Rate FiO2 01/10/18 10:00 89 01/10/18 09:00 86 14 117/62 (80) 96 01/10/18 08:15 40 01/10/18 08:15 95 40 01/10/18 08:00 45 01/10/18 08:00 99.2 87 14 116/64 (81) 94 01/10/18 08:00 87 01/10/18 07:00 88 16 109/56 (73) 93 01/10/18 06:00 90 01/10/18 04:00 97.9 90 16 116/63 (80) 99 01/10/18 04:00 45 01/10/18 04:00 90 01/10/18 03:53 100 40 01/10/18 02:00 96 01/10/18 00:04 98 45 01/10/18 00:00 98.7 94 17 102/59 (73) 98 01/10/18 00:00 45 01/10/18 00:00 94 01/09/18 20:32 95 45 01/09/18 20:00 99.5 102 17 116/66 (83) 97 01/09/18 20:00 45 01/09/18 20:00 102 01/09/18 18:00 109 01/09/18 16:00 60 01/09/18 16:00 117 01/09/18 16:00 99.2 117 15 113/64 (80) 96 01/09/18 15:15 97 45 01/09/18 14:00 96 01/09/18 12:00 60 01/09/18 12:00 94 01/09/18 12:00 99.0 94 34 105/57 (73) 96 I/O 01/09/18 01/09/18 01/09/18 01/10/18 01/10/18 01/10/18 07:00 15:00 23:00 07:00 15:00 23:00 Intake Total 429.6 ml 891 ml 1487 ml 524.5 ml Output Total 200 ml 300 ml 375 ml Balance -200 ml 429.6 ml 591 ml 1112 ml 524.5 ml IV Total 429.6 ml 652 ml 1027 ml 524.5 ml Tube Feeding 239 ml 360 ml Tube Irrigant 100 ml Output Urine Total 200 ml 300 ml 375 ml # Bowel Movements 0 Physical Exam GENERAL: Intubated and sedated SKIN: Warm and dry. HEAD: Atraumatic. Normocephalic. EYES: Pupils equal and round. No scleral icterus. No injection or drainage. ENT: No nasal bleeding or discharge. Mucous membranes pink and moist. NECK: Trachea midline. No JVD. CARDIOVASCULAR: Regular rate and rhythm. RESPIRATORY: No accessory muscle use. Decreased breath sounds with scattered rhonchi GASTROINTESTINAL: Abdomen soft, non-tender, nondistended. Hepatic and splenic margins not palpable. MUSCULOSKELETAL: Extremities without clubbing, cyanosis, or edema. No obvious deformities. NEUROLOGICAL: Intubated and sedated Laboratory Laboratory Tests Test 01/09/18 14:06 01/10/18 06:17 01/10/18 09:47 White Blood Count 8.9 TH/MM3 8.8 TH/MM3 Red Blood Count 3.34 MIL/MM3 3.51 MIL/MM3 Hemoglobin 10.5 GM/DL 11.0 GM/DL Hematocrit 31.4 % 32.7 % Mean Corpuscular Volume 93.8 FL 93.2 FL Mean Corpuscular Hemoglobin 31.4 PG 31.4 PG Mean Corpuscular Hemoglobin Concent 33.5 % 33.7 % Red Cell Distribution Width 14.4 % 14.6 % Platelet Count 183 TH/MM3 208 TH/MM3 Mean Platelet Volume 9.6 FL 9.0 FL Neutrophils (%) (Auto) 78.1 % 77.8 % Lymphocytes (%) (Auto) 9.5 % 9.6 % Monocytes (%) (Auto) 10.3 % 9.1 % Eosinophils (%) (Auto) 1.7 % 2.9 % Basophils (%) (Auto) 0.4 % 0.6 % Neutrophils # (Auto) 6.9 TH/MM3 6.8 TH/MM3 Lymphocytes # (Auto) 0.8 TH/MM3 0.8 TH/MM3 Monocytes # (Auto) 0.9 TH/MM3 0.8 TH/MM3 Eosinophils # (Auto) 0.1 TH/MM3 0.3 TH/MM3 Basophils # (Auto) 0.0 TH/MM3 0.0 TH/MM3 CBC Comment DIFF FINAL DIFF FINAL Differential Comment Blood Urea Nitrogen 37 MG/DL 35 MG/DL Creatinine 1.51 MG/DL 1.45 MG/DL Random Glucose 112 MG/DL 108 MG/DL Total Protein 5.9 GM/DL 6.4 GM/DL Albumin 1.9 GM/DL 2.1 GM/DL Calcium Level 7.9 MG/DL 8.1 MG/DL Alkaline Phosphatase 90 U/L 103 U/L Aspartate Amino Transf (AST/SGOT) 45 U/L 52 U/L Alanine Aminotransferase (ALT/SGPT) 42 U/L 51 U/L Total Bilirubin 0.5 MG/DL 0.5 MG/DL Sodium Level 141 MEQ/L 141 MEQ/L Potassium Level 3.4 MEQ/L 3.2 MEQ/L Chloride Level 109 MEQ/L 108 MEQ/L Carbon Dioxide Level 21.3 MEQ/L 21.5 MEQ/L Anion Gap 11 MEQ/L 12 MEQ/L Estimat Glomerular Filtration Rate 47 ML/MIN 49 ML/MIN B-Type Natriuretic Peptide 66 PG/ML Imaging Last 24 hours Impressions Chest X-Ray 01/10/18 0000 Signed Impressions: CONCLUSION: Interval improvement with less interstitial edema. Assessment and Plan Problem List: (1) Bilateral pneumonia ICD Codes: J18.9 - Pneumonia, unspecified organism Status: Acute (2) Hypoxia ICD Codes: R09.02 - Hypoxemia Status: Acute (3) Tachyarrhythmia ICD Codes: R00.0 - Tachycardia, unspecified Status: Acute (4) Paroxysmal atrial flutter ICD Codes: I48.92 - Unspecified atrial flutter Status: Acute Assessment and Plan 1) SOB secondary to PNA Bloody mucus, ruling out TB s/p intubation for respiratory failure 2) Aflutter with RVR, now in sinus rhythm Most likely potentiated by his underlying illness Not an anti-coagulation candidate at this time due to hemoptysis 3) EF 30-35% 4) 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 Lamar Echo technically difficult, does not appear like a replacement 5) Abdominal aortic aneurysm Follow up with Dr. Lamar 6) Tobacco cessation 7) Elevated troponins Type 2 in nature due to underlying illness/hypoxemia Medical management as he is not an invasive candidate with hemoptysis This can be reevaluated through out the hospital course and outpt Problem Qualifiers (1) Bilateral pneumonia: Qualified Codes: J18.1 - Lobar pneumonia, unspecified organism Atul Galan DO Jan 10, 2018 11:53
--- NOTE | 2018-01-10 13:30 | HHI.PR ---
Subjective Remarks The patient deteriorated and went to respiratory failure. He is currently intubated on mechanical ventilator. He seems to be better. He was waking up and moving extremities. no hemoptysis Objective Vital Signs Date Time Temp Pulse Resp B/P (MAP) Pulse Ox O2 Delivery O2 Flow Rate FiO2 01/10/18 12:01 97 35 01/10/18 12:00 100.7 98 24 156/74 (101) 96 01/10/18 12:00 35 01/10/18 12:00 98 01/10/18 11:00 92 14 144/73 (96) 98 01/10/18 10:00 89 11 127/68 (87) 98 01/10/18 10:00 89 01/10/18 09:00 86 14 117/62 (80) 96 01/10/18 08:15 40 01/10/18 08:15 95 40 01/10/18 08:15 40 01/10/18 08:00 45 01/10/18 08:00 99.2 87 14 116/64 (81) 94 01/10/18 08:00 87 01/10/18 07:00 88 16 109/56 (73) 93 01/10/18 06:00 90 01/10/18 04:00 97.9 90 16 116/63 (80) 99 01/10/18 04:00 45 01/10/18 04:00 90 01/10/18 03:53 100 40 01/10/18 02:00 96 01/10/18 00:04 98 45 01/10/18 00:00 98.7 94 17 102/59 (73) 98 01/10/18 00:00 45 01/10/18 00:00 94 01/09/18 20:32 95 45 01/09/18 20:00 99.5 102 17 116/66 (83) 97 01/09/18 20:00 45 01/09/18 20:00 102 01/09/18 18:00 109 01/09/18 16:00 60 01/09/18 16:00 117 01/09/18 16:00 99.2 117 15 113/64 (80) 96 01/09/18 15:15 97 45 01/09/18 14:00 96 I/O 01/09/18 01/09/18 01/09/18 01/10/18 01/10/18 6/11/18 07:00 15:00 23:00 07:00 15:00 23:00 Intake Total 429.6 ml 891 ml 1487 ml 524.5 ml Output Total 200 ml 300 ml 375 ml Balance -200 ml 429.6 ml 591 ml 1112 ml 524.5 ml IV Total 429.6 ml 652 ml 1027 ml 524.5 ml Tube Feeding 239 ml 360 ml Tube Irrigant 100 ml Output Urine Total 200 ml 300 ml 375 ml # Bowel Movements 0 Result Diagram: 01/10/1847 01/10/18946 Objective Remarks Physical exam: General appearance: Intubated Head and neck examination: ET tube Neck: [supple trachea midline] Lungs: Mild basilar crackles Heart: [normal S1-S2] Abdomen: [soft nontender positive bowel sounds] Extremities: [no significant edema no cyanosis] Neurological examination: awake moves extremities follows simple commands Skin: [no rashes seen] Assessment and Plan Assessment and Plan Acute ventilator dependent respiratory failure Severe pneumonia Hemoptysis Continue current antibiotics Follow-up on the results of sputum AFB and QuantiFERON gold test continue Mechanical ventilator management as per the community health agent GI DVT prevention Appreciate help from the medical community health agent still critically ill but making progress Vasiliy Rojas MD Jan 10, 2018 13:30
[2018-01-11] VITALS (25 sets, daily range): BP systolic 102–169; BP diastolic 55–98; PULSE 75–93; RESP 15–31; TEMP 98.2–99.8; O2SAT 89–100
[2018-01-11] MEDS: RESP: ALBUTEROL 2.5 MG/IPRATROPIUM 0.5 MG NEB (SCH) NEB ×6 (03:02→23:47)
[2018-01-11] MEDS: PROPOFOL 1000 MG/100 ML INJ 100 ML IV PRN ×2 (05:05→17:26)
[2018-01-11] MEDS: INSULIN ASPART SUPPLEMENTAL SCALE SQ SCH ×4 (05:42→23:47)
[2018-01-11] MEDS: CEFEPIME INJ 2,000 MG in SODIUM CHLORIDE 0.9% INJ 100 ML IV SCH (05:42)
[2018-01-11] MEDS: fentaNYL DRIP 250 ML IV PRN (05:43)
[2018-01-11 06:18] LABS: AUTOMATED NEUTROPHIL # 5.3 TH/MM3 (1.8-7.7); BASOPHIL # 0.1 TH/MM3 (0-0.2); BASOPHIL % 1.1 % (0.0-2.0); EOSINOPHIL # 0.4 TH/MM3 (0-0.4); EOSINOPHIL % 5.6 % (0.0-4.0); HEMATOCRIT 30.9 % (39.0-51.0); HEMOGLOBIN 10.4 GM/DL (13.0-17.0); LYMPH % 12.4 % (9.0-44.0); LYMPHOCYTE # 0.9 TH/MM3 (1.0-4.8); MEAN CELL VOLUME 93.6 FL (80.0-100.0); MEAN CORPUSCULAR HEMOGLOBIN 31.4 PG (27.0-34.0); MEAN CORPUSCULAR HGB CONC 33.6 % (32.0-36.0); MEAN PLATELET VOLUME 9.2 FL (7.0-11.0); MONO % 10.3 % (0.0-8.0); MONOCYTE # 0.8 TH/MM3 (0-0.9); NEUT % 70.6 % (16.0-70.0); PLATELET COUNT 228 TH/MM3 (150-450); RED BLOOD COUNT 3.31 MIL/MM3 (4.50-5.90); RED CELL DISTRIBUTION WIDTH 14.4 % (11.6-17.2); WHITE BLOOD COUNT 7.5 TH/MM3 (4.0-11.0)
[2018-01-11 06:26] LABS: ALBUMIN 1.9 GM/DL (3.4-5.0); AST (GOT) 61 U/L (15-37); BICARBONATE 22.2 MEQ/L (21.0-32.0); BLOOD UREA NITROGEN 29 MG/DL (7-18); CALCIUM 8.3 MG/DL (8.5-10.1); CHLORIDE 112 MEQ/L (98-107); CREATININE 1.31 MG/DL (0.60-1.30); GLOMERULAR FILTRATION RATE 55 ML/MIN (>89); GLUCOSE,RANDOM 84 MG/DL (74-106); SODIUM (NA) 145 MEQ/L (136-145)
[2018-01-11 06:29] LABS: ALKALINE PHOSPHATASE 128 U/L (45-117); ALT (GPT) 64 U/L (12-78); TOTAL BILIRUBIN ADULT 0.5 MG/DL (0.2-1.0); TOTAL PROTEIN 6.2 GM/DL (6.4-8.2)
[2018-01-11] MEDS: ASPIRIN 81 MG CHEW TAB CHEW SCH (07:39)
[2018-01-11] MEDS: VANCOMYCIN INJ 1,250 MG in SODIUM CHLOR 0.9% 250 ML INJ 250 ML IV SCH (07:39)
[2018-01-11] MEDS: CHLORHEXIDINE 0.12% (ORAL KIT) 15 ML CUP MT SCH ×2 (07:39→20:03)
[2018-01-11] MEDS: SODIUM CHLORIDE 0.9% FLUSH 10 ML FLUSH IV FLUSH PRN (07:40)
[2018-01-11] MEDS: SODIUM CHLORIDE 0.9% FLUSH 10 ML FLUSH IV FLUSH SCH ×2 (07:40→20:03)
[2018-01-11] MEDS: AZITHROMYCIN 250 MG TAB PO SCH (07:40)
[2018-01-11] MEDS: FAMOTIDINE 20 MG/2 ML VIAL IV PUSH SCH (07:40)
[2018-01-11] MEDS: METOPROLOL TARTRATE 25 MG TAB PO SCH ×2 (07:40→20:02)
[2018-01-11] MEDS: DOCUSATE SODIUM 50 MG/SENNA 8.6 MG TAB PO SCH ×2 (07:40→20:03)
[2018-01-11] MEDS: HEPARIN SODIUM - SQ 10,000 UNITS/ML VIAL SQ SCH ×2 (07:41→20:02)
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
[2018-01-11] MEDS: guaiFENesin E.R. 600 MG TAB PO SCH ×2 (09:00→20:02)
--- NOTE | 2018-01-11 12:54 | PD.CARD.PN ---
Subjective Subjective Remarks Telemetry sinus rhythm in the 80s Planning on extubation today Objective Medications Current Medications Medications (Trade) Dose Ordered Sig/Herber Route Start Time Stop Time Status Last Admin (NS Flush) 2 ml BID IV FLUSH 01/07/18 21:00 01/11/18 07:40 (NS Flush) 2 ml UNSCH PRN IV FLUSH 01/07/18 13:00 01/11/18 07:40 (Zithromax) 250 mg Taper DAILY PO 01/08/18 13:00 01/13/18 12:59 01/11/18 07:40 (Apresoline) 10 mg Q45M PRN PO 01/07/18 15:00 (Aspirin Chew) 81 mg DAILY CHEW 01/08/18 09:00 01/11/18 07:39 (Mucinex Er) 600 mg BID PO 01/08/18 11:15 01/08/18 20:57 (Tylenol) 650 mg Q4H PRN PO 01/08/18 11:30 01/10/18 11:51 (Zofran Odt) 4 mg Q6H PRN PO 01/08/18 12:15 (Reglan Inj) 5 mg Q6H PRN IV PUSH 01/08/18 11:30 (Tylenol) 650 mg Q6H PRN PO 01/08/18 11:30 (Percocet 5-325 Mg) 1 tab Q6H PRN PO 01/08/18 11:30 (Percocet 10-325 Mg) 1 tab Q6H PRN PO 01/08/18 11:30 01/08/18 12:22 (Morphine Inj) 2 mg Q3H PRN IV PUSH 01/08/18 12:15 (Morphine Inj) 4 mg Q3H PRN IV PUSH 01/08/18 12:15 (Narcan Inj) 0.4 mg UNSCH PRN IV PUSH 01/08/18 11:30 (Lashay-Colace) 1 tab BID PO 01/08/18 21:00 01/11/18 07:40 (Milk Of Magnesia Liq) 30 ml Q12H PRN PO 01/08/18 11:30 (Senokot) 17.2 mg Q12H PRN PO 01/08/18 11:30 (Dulcolax Supp) 10 mg DAILY PRN RECTAL 01/08/18 11:30 (Lactulose Liq) 30 ml DAILY PRN PO 01/08/18 11:30 (Robitussin Ac 200-20 Mg/10 ml Liq) 5 ml Q6H PRN PO 01/08/18 14:00 (Duoneb Neb) 1 ampule Q4HR NEB NEB 01/08/18 20:00 01/11/18 12:09 (Albuterol Neb) 2.5 mg Q2HR NEB PRN NEB 01/08/18 17:30 (Peridex 0.12% Liq) 15 ml BID@08,20 MT 01/09/18 08:00 01/11/18 07:39 Propofol 100 ml @ 1.95 mls/hr TITRATE PRN IV 01/08/18 23:15 01/11/18 05:05 Fentanyl Citrate 250 ml @ 5 mls/hr TITRATE PRN IV 01/08/18 23:15 01/11/18 05:43 Pharmacy Profile Note 0 ml @ 0 mls/hr UNSCH OTHER 01/09/18 06:30 Cefepime HCl 2000 mg/Sodium Chloride 100 ml @ 200 mls/hr Q12H IV 01/09/18 06:30 01/11/18 05:42 Vancomycin HCl 1250 mg/Sodium Chloride 262.5 ml @ 250 mls/hr Q24H IV 01/10/18 08:00 01/11/18 07:39 ([facility] Ordered Lab Info) SPECIFIC LAB TO BE DRAWN:VANCOMYCIN TROUGH DATE TO... ONCE ONCE .XX 01/12/18 07:45 01/12/18 07:46 (D50w (Vial) Inj) 50 ml UNSCH PRN IV PUSH 01/09/18 12:45 (Glucagon Inj) 1 mg UNSCH PRN OTHER 01/09/18 12:45 (NovoLOG SUPPLEMENTAL SCALE) 1 Q6HR SQ 01/09/18 12:45 01/09/18 17:49 (Heparin Inj) 5,000 units Q12HR SQ 01/09/18 21:00 01/11/18 07:41 (Pill Splitter) 1 ea UNSCH PRN OTHER 01/09/18 16:15 (Lopressor) 12.5 mg Q12HR PO 01/09/18 16:15 01/11/18 07:40 (Pepcid Inj) 10 mg Q12H IV PUSH 01/10/18 09:00 01/11/18 07:40 Potassium Chloride 100 ml @ 50 mls/hr Q2H PRN IV 01/10/18 10:45 Potassium Chloride 100 ml @ 50 mls/hr Q2H PRN IV 01/10/18 10:45 01/10/18 17:47 (K-Lyte Cl Eff) 50 meq UNSCH PRN PO 01/10/18 10:45 Potassium Chloride 100 ml @ 25 mls/hr UNSCH PRN IV 01/10/18 10:45 Potassium Chloride 100 ml @ 50 mls/hr Q2H PRN IV 01/10/18 10:45 Magnesium Sulfate 4 gm/Sodium Chloride 100 ml @ 50 mls/hr UNSCH PRN IV 01/10/18 10:45 (Mag-Ox) 800 mg UNSCH PRN PO 01/10/18 10:45 Magnesium Sulfate 2 gm/Sodium Chloride 100 ml @ 50 mls/hr UNSCH PRN IV 01/10/18 10:45 (K-Phos) 2,000 mg Q4H PRN PO 01/10/18 10:45 Sodium Phosphate 30 mmol/Sodium Chloride 250 ml @ 42 mls/hr UNSCH PRN IV 01/10/18 10:45 (K-Phos) 2,000 mg UNSCH PRN PO/TUBE 01/10/18 10:45 Potassium Phosphate 30 mmol/ Sodium Chloride 260 ml @ 42 mls/hr UNSCH PRN IV 01/10/18 10:45 Vital Signs / I&O Vital Signs Date Time Temp Pulse Resp B/P (MAP) Pulse Ox O2 Delivery O2 Flow Rate FiO2 01/11/18 12:10 89 60 01/11/18 10:00 91 01/11/18 09:00 91 24 136/83 (100) 98 01/11/18 09:00 45 01/11/18 08:02 100 35 01/11/18 08:02 35 01/11/18 08:00 35 01/11/18 08:00 90 01/11/18 08:00 99.8 90 21 120/66 (84) 94 01/11/18 07:00 77 18 105/59 (74) 94 01/11/18 06:00 79 01/11/18 04:59 96 35 01/11/18 04:00 98.2 82 17 112/76 (88) 93 01/11/18 04:00 35 01/11/18 04:00 82 01/11/18 03:02 97 35 01/11/18 02:00 82 01/11/18 00:00 83 01/11/18 00:00 98.4 83 17 108/64 (79) 96 01/11/18 00:00 35 01/10/18 23:56 100 35 01/10/18 22:00 81 01/10/18 20:37 97 35 01/10/18 20:00 98.6 84 17 107/57 (74) 95 01/10/18 20:00 35 01/10/18 20:00 86 01/10/18 18:00 91 01/10/18 16:44 98 35 01/10/18 16:30 35 01/10/18 16:00 98.7 99 39 148/80 (102) 92 01/10/18 16:00 99 01/10/18 16:00 35 01/10/18 14:00 91 I/O 01/10/18 01/10/18 01/10/18 01/11/18 01/11/18 01/11/18 07:00 15:00 23:00 07:00 15:00 23:00 Intake Total 1487 ml 624.5 ml 1649 ml 1053 ml Output Total 375 ml 3050 ml 450 ml Balance 1112 ml 624.5 ml -1401 ml 603 ml IV Total 1027 ml 624.5 ml 980 ml 450 ml Tube Feeding 360 ml 549 ml 543 ml Tube Irrigant 100 ml Other 120 ml 60 ml Output Urine Total 375 ml 3050 ml 450 ml Physical Exam GENERAL: Intubated and sedated SKIN: Warm and dry. HEAD: Atraumatic. Normocephalic. EYES: Pupils equal and round. No scleral icterus. No injection or drainage. ENT: No nasal bleeding or discharge. Mucous membranes pink and moist. NECK: Trachea midline. No JVD. CARDIOVASCULAR: Regular rate and rhythm. RESPIRATORY: No accessory muscle use. Decreased breath sounds with scattered rhonchi GASTROINTESTINAL: Abdomen soft, non-tender, nondistended. Hepatic and splenic margins not palpable. MUSCULOSKELETAL: Extremities without clubbing, cyanosis, or edema. No obvious deformities. NEUROLOGICAL: Intubated and sedated Laboratory Laboratory Tests Test 01/11/18 03:33 01/11/18 08:00 White Blood Count 7.5 TH/MM3 Red Blood Count 3.31 MIL/MM3 Hemoglobin 10.4 GM/DL Hematocrit 30.9 % Mean Corpuscular Volume 93.6 FL Mean Corpuscular Hemoglobin 31.4 PG Mean Corpuscular Hemoglobin Concent 33.6 % Red Cell Distribution Width 14.4 % Platelet Count 228 TH/MM3 Mean Platelet Volume 9.2 FL Neutrophils (%) (Auto) 70.6 % Lymphocytes (%) (Auto) 12.4 % Monocytes (%) (Auto) 10.3 % Eosinophils (%) (Auto) 5.6 % Basophils (%) (Auto) 1.1 % Neutrophils # (Auto) 5.3 TH/MM3 Lymphocytes # (Auto) 0.9 TH/MM3 Monocytes # (Auto) 0.8 TH/MM3 Eosinophils # (Auto) 0.4 TH/MM3 Basophils # (Auto) 0.1 TH/MM3 CBC Comment DIFF FINAL Differential Comment Blood Urea Nitrogen 29 MG/DL Creatinine 1.31 MG/DL Random Glucose 84 MG/DL Total Protein 6.2 GM/DL Albumin 1.9 GM/DL Calcium Level 8.3 MG/DL Alkaline Phosphatase 128 U/L Aspartate Amino Transf (AST/SGOT) 61 U/L Alanine Aminotransferase (ALT/SGPT) 64 U/L Total Bilirubin 0.5 MG/DL Sodium Level 145 MEQ/L Potassium Level 4.0 MEQ/L Chloride Level 112 MEQ/L Carbon Dioxide Level 22.2 MEQ/L Anion Gap 11 MEQ/L Estimat Glomerular Filtration Rate 55 ML/MIN M. tuberculosis Complex DNA (PCR) NOT DETECTED Assessment and Plan Problem List: (1) Bilateral pneumonia ICD Codes: J18.9 - Pneumonia, unspecified organism Status: Acute (2) Hypoxia ICD Codes: R09.02 - Hypoxemia Status: Acute (3) Tachyarrhythmia ICD Codes: R00.0 - Tachycardia, unspecified Status: Acute (4) Paroxysmal atrial flutter ICD Codes: I48.92 - Unspecified atrial flutter Status: Acute Assessment and Plan 1) SOB secondary to PNA Bloody mucus, TB ruled out s/p intubation for respiratory failure 2) Aflutter with RVR, now in sinus rhythm Most likely potentiated by his underlying illness Not an anti-coagulation candidate at this time due to hemoptysis 3) EF 30-35% 4) 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 Lamar Echo technically difficult, does not appear like a replacement of aortic valve 5) Abdominal aortic aneurysm Follow up with Dr. Lamar 6) Tobacco cessation 7) Elevated troponins Type 2 in nature due to underlying illness/hypoxemia Medical management as he is not an invasive candidate with hemoptysis This can be reevaluated through out the hospital course and outpt Problem Qualifiers (1) Bilateral pneumonia: Qualified Codes: J18.1 - Lobar pneumonia, unspecified organism Atul Galan DO Jan 11, 2018 12:54
[2018-01-11 16:31] LABS: MITOGEN MINUS NIL RESULT >10.00 IU/mL; NIL RESULT 0.02 IU/mL; QUANTIFERON TB GOLD + RESULT Negative (Negative)
--- NOTE | 2018-01-11 17:00 | HHI.IDPN ---
Subjective Subjective Remarks remains on vent MTB probe negative Antibiotics cefepime vancomycin Allergies: Coded Allergies: No Known Allergies (Verified Allergy, Unknown, 01/07/18) Objective . Vital Signs Date Time Temp Pulse Resp B/P (MAP) Pulse Ox O2 Delivery O2 Flow Rate FiO2 01/11/18 16:04 100 40 01/11/18 16:00 86 01/11/18 16:00 40 01/11/18 16:00 99.2 86 19 124/75 (91) 94 01/11/18 15:00 40 01/11/18 15:00 82 15 130/70 (90) 97 01/11/18 14:00 82 16 123/64 (83) 98 01/11/18 14:00 82 01/11/18 13:00 84 18 102/55 (71) 92 01/11/18 12:10 89 60 01/11/18 12:00 92 01/11/18 12:00 99.4 92 29 145/63 (90) 89 01/11/18 12:00 60 01/11/18 11:00 93 19 169/98 (121) 97 01/11/18 10:00 90 31 154/88 (110) 91 01/11/18 10:00 91 01/11/18 09:00 91 24 136/83 (100) 98 01/11/18 09:00 45 01/11/18 08:02 100 35 01/11/18 08:02 35 01/11/18 08:00 35 01/11/18 08:00 90 01/11/18 08:00 99.8 90 21 120/66 (84) 94 01/11/18 07:00 77 18 105/59 (74) 94 01/11/18 06:00 79 01/11/18 04:59 96 35 01/11/18 04:00 98.2 82 17 112/76 (88) 93 01/11/18 04:00 35 01/11/18 04:00 82 01/11/18 03:02 97 35 01/11/18 02:00 82 01/11/18 00:00 83 01/11/18 00:00 98.4 83 17 108/64 (79) 96 01/11/18 00:00 35 01/10/18 23:56 100 35 01/10/18 22:00 81 01/10/18 20:37 97 35 01/10/18 20:00 98.6 84 17 107/57 (74) 95 01/10/18 20:00 35 01/10/18 20:00 86 01/10/18 18:00 91 01/11/18 01/11/18 01/12/18 15:00 23:00 07:00 Intake Total 262.5 ml Balance 262.5 ml IV Total 262.5 ml . Laboratory Tests Test 01/10/18 06:17 01/10/18 09:47 01/11/18 03:33 White Blood Count 8.9 TH/MM3 8.8 TH/MM3 7.5 TH/MM3 Red Blood Count 3.34 MIL/MM3 3.51 MIL/MM3 3.31 MIL/MM3 Hemoglobin 10.5 GM/DL 11.0 GM/DL 10.4 GM/DL Hematocrit 31.4 % 32.7 % 30.9 % Mean Corpuscular Volume 93.8 FL 93.2 FL 93.6 FL Mean Corpuscular Hemoglobin 31.4 PG 31.4 PG 31.4 PG Mean Corpuscular Hemoglobin Concent 33.5 % 33.7 % 33.6 % Red Cell Distribution Width 14.4 % 14.6 % 14.4 % Platelet Count 183 TH/MM3 208 TH/MM3 228 TH/MM3 Mean Platelet Volume 9.6 FL 9.0 FL 9.2 FL Neutrophils (%) (Auto) 78.1 % 77.8 % 70.6 % Lymphocytes (%) (Auto) 9.5 % 9.6 % 12.4 % Monocytes (%) (Auto) 10.3 % 9.1 % 10.3 % Eosinophils (%) (Auto) 1.7 % 2.9 % 5.6 % Basophils (%) (Auto) 0.4 % 0.6 % 1.1 % Neutrophils # (Auto) 6.9 TH/MM3 6.8 TH/MM3 5.3 TH/MM3 Lymphocytes # (Auto) 0.8 TH/MM3 0.8 TH/MM3 0.9 TH/MM3 Monocytes # (Auto) 0.9 TH/MM3 0.8 TH/MM3 0.8 TH/MM3 Eosinophils # (Auto) 0.1 TH/MM3 0.3 TH/MM3 0.4 TH/MM3 Basophils # (Auto) 0.0 TH/MM3 0.0 TH/MM3 0.1 TH/MM3 CBC Comment DIFF FINAL DIFF FINAL DIFF FINAL Differential Comment Laboratory Tests Test 01/10/18 06:17 01/10/18 09:47 01/11/18 03:33 Blood Urea Nitrogen 37 MG/DL 35 MG/DL 29 MG/DL Creatinine 1.51 MG/DL 1.45 MG/DL 1.31 MG/DL Random Glucose 112 MG/DL 108 MG/DL 84 MG/DL Total Protein 5.9 GM/DL 6.4 GM/DL 6.2 GM/DL Albumin 1.9 GM/DL 2.1 GM/DL 1.9 GM/DL Calcium Level 7.9 MG/DL 8.1 MG/DL 8.3 MG/DL Alkaline Phosphatase 90 U/L 103 U/L 128 U/L Aspartate Amino Transf (AST/SGOT) 45 U/L 52 U/L 61 U/L Alanine Aminotransferase (ALT/SGPT) 42 U/L 51 U/L 64 U/L Total Bilirubin 0.5 MG/DL 0.5 MG/DL 0.5 MG/DL Sodium Level 141 MEQ/L 141 MEQ/L 145 MEQ/L Potassium Level 3.4 MEQ/L 3.2 MEQ/L 4.0 MEQ/L Chloride Level 109 MEQ/L 108 MEQ/L 112 MEQ/L Carbon Dioxide Level 21.3 MEQ/L 21.5 MEQ/L 22.2 MEQ/L Anion Gap 11 MEQ/L 12 MEQ/L 11 MEQ/L Estimat Glomerular Filtration Rate 47 ML/MIN 49 ML/MIN 55 ML/MIN Phosphorus Level 3.7 MG/DL B-Type Natriuretic Peptide 66 PG/ML Microbiology Date/Time Source Procedure Growth Status 01/09/18 19:40 Nasal Washing Influenza Types A,B Antigen (RIAN) - Final NEGATIVE FOR FLU A AND B ANTIGEN.... Complete 01/09/18 12:00 Sputum Endotracheal Acid Fast Stain - Final NO ACID FAST BACILLI SEEN Resulted 01/09/18 12:00 Sputum Endotracheal Mycobacterial Culture Pending Resulted 01/09/18 07:50 Sputum Endotracheal Gram Stain - Final Complete 01/09/18 07:50 Sputum Endotracheal Sputum Culture - Final MODERATE GROWTH NORMAL RESPIRATORY XU Complete Imaging Last Impressions Chest X-Ray 01/10/18 0000 Signed Impressions: CONCLUSION: Interval improvement with less interstitial edema. Renal Ultrasound 01/08/18 0000 Signed Impressions: CONCLUSION: 1. Atrophic left kidney. Right kidney unremarkable. No hydronephrosis. Lower Extremity Ultrasound 01/08/18 Signed Impressions: CONCLUSION: 1. Negative for deep venous thrombosis bilateral lower extremities. Chest CT 01/07/18 Addendum Impressions: CONCLUSION: 1. There is airspace consolidation in bilateral upper lobes highly suspicious for pneumonia. 2. Small bilateral pleural effusions. 3. 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 4. Superior endplate depression and compression of one of the upper lumbar stevan tebrae not adequately characterized probably chronic. Physical Exam CONSTITUTIONAL/GENERAL: This is an adequately nourished patient, in no apparent distress. TUBES/LINES/DRAINS: SKIN: No jaundice, rashes, or lesions. Skin temperature appropriate. Not diaphoretic. CARDIOVASCULAR: Regular rate and rhythm without murmurs, gallops, or rubs. No JVD. Peripheral pulses symmetric. RESPIRATORY/CHEST: Symmetric, unlabored respirations. Clear to auscultation. Breath sounds equal bilaterally. No wheezes, rales, or rhonchi. GASTROINTESTINAL: Abdomen soft, non-tender, nondistended. No hepato-splenomegaly , or palpable masses. No guarding. Bowel sounds present. GENITOURINARY: Without palpable bladder distension. Yao catheter in place. with clear yellow urine MUSCULOSKELETAL: Extremities without clubbing, cyanosis, or edema. NEUROLOGICAL:sedarted. Unresponsive PSYCHIATRIC: unable to assess Assessment & Plan Remarks Severe B/l PNA - hemoptysis - Gstain of sputum is neg for org's CT findings dw radiologist- no changes typical for mycobactreial infection Acute hypoxic resp failure Multiple med problems MTB negative cont current abx fu cultures,including AFB will change abx to CFTX/Humera Ya MD Jan 11, 2018 17:00
[2018-01-11] MEDS: cefTRIAXone INJ 2,000 MG in SODIUM CHLORIDE 0.9% INJ 100 ML IV SCH (17:26)
[2018-01-11] MEDS: FAMOTIDINE 20 MG TAB PO SCH (20:02)
--- NOTE | 2018-01-11 22:08 | HHI.PR ---
Subjective Remarks intubated on mechanical ventilator. He was waking up and moving extremities. no hemoptysis Objective Vital Signs Date Time Temp Pulse Resp B/P (MAP) Pulse Ox O2 Delivery O2 Flow Rate FiO2 01/11/18 20:27 96 40 01/11/18 20:00 83 01/11/18 20:00 99.0 83 20 127/76 (93) 96 01/11/18 20:00 40 01/11/18 18:00 79 01/11/18 18:00 79 16 111/64 (80) 94 01/11/18 17:00 82 17 114/67 (83) 93 01/11/18 16:04 100 40 01/11/18 16:00 86 01/11/18 16:00 40 01/11/18 16:00 99.2 86 19 124/75 (91) 94 01/11/18 15:00 40 01/11/18 15:00 82 15 130/70 (90) 97 01/11/18 14:00 82 16 123/64 (83) 98 01/11/18 14:00 82 01/11/18 13:00 84 18 102/55 (71) 92 01/11/18 12:10 89 60 01/11/18 12:00 92 01/11/18 12:00 99.4 92 29 145/63 (90) 89 01/11/18 12:00 60 01/11/18 11:00 93 19 169/98 (121) 97 01/11/18 10:00 90 31 154/88 (110) 91 01/11/18 10:00 91 01/11/18 09:00 91 24 136/83 (100) 98 01/11/18 09:00 45 01/11/18 08:02 100 35 01/11/18 08:02 35 01/11/18 08:00 35 01/11/18 08:00 90 01/11/18 08:00 99.8 90 21 120/66 (84) 94 01/11/18 07:00 77 18 105/59 (74) 94 01/11/18 06:00 79 01/11/18 04:59 96 35 01/11/18 04:00 98.2 82 17 112/76 (88) 93 01/11/18 04:00 35 01/11/18 04:00 82 01/11/18 03:02 97 35 01/11/18 02:00 82 01/11/18 00:00 83 01/11/18 00:00 98.4 83 17 108/64 (79) 96 01/11/18 00:00 35 01/10/18 23:56 100 35 I/O 01/10/18 01/10/18 01/10/18 01/11/18 01/11/18 01/11/18 07:00 15:00 23:00 07:00 15:00 23:00 Intake Total 1487 ml 624.5 ml 1649 ml 1053 ml 262.5 ml 716 ml Output Total 375 ml 3050 ml 450 ml 425 ml Balance 1112 ml 624.5 ml -1401 ml 603 ml 262.5 ml 291 ml IV Total 1027 ml 624.5 ml 980 ml 450 ml 262.5 ml 295 ml Tube Feeding 360 ml 549 ml 543 ml 361 ml Tube Irrigant 100 ml Other 120 ml 60 ml 60 ml Output Urine Total 375 ml 3050 ml 450 ml 425 ml # Bowel Movements 1 Result Diagram: 01/11/18 0333 01/11/18 0333 Objective Remarks Physical exam: General appearance: Intubated Head and neck examination: ET tube Neck: [supple trachea midline] Lungs: Mild basilar crackles Heart: [normal S1-S2] Abdomen: [soft nontender positive bowel sounds] Extremities: [no significant edema no cyanosis] Neurological examination: awake moves extremities follows simple commands Skin: [no rashes seen] Assessment and Plan Assessment and Plan Acute ventilator dependent respiratory failure Severe pneumonia Hemoptysis Continue current antibiotics as per ID recs Follow-up on the results of sputum cxs continue Mechanical ventilator management as per the infantryman possible weaning trial in am GI DVT prevention Appreciate help from the medical infantryman still critically ill but making progress Vasiliy Rojas MD Jan 11, 2018 22:08
[2018-01-12] VITALS (19 sets, daily range): BP systolic 105–180; BP diastolic 62–92; PULSE 72–94; RESP 17–32; TEMP 98.3–100.4; O2SAT 90–100
[2018-01-12] MEDS: PROPOFOL 1000 MG/100 ML INJ 100 ML IV PRN ×3 (02:20→22:27)
[2018-01-12] MEDS: fentaNYL DRIP 250 ML IV PRN ×2 (02:20→22:26)
[2018-01-12] MEDS: RESP: ALBUTEROL 2.5 MG/IPRATROPIUM 0.5 MG NEB (SCH) NEB ×6 (03:29→23:18)
--- NOTE | 2018-01-12 04:35 | RADRPT ---
EXAM DATE: 01/12/2018 4:31 AM EDT AGE/SEX: 67 years / Male INDICATIONS: Short of breath. CLINICAL DATA: This is the patient's subsequent encounter. Patient reports that signs and symptoms h ave been present for 4 - 6 days and indicates a pain score of 0/10. MEDICAL/SURGICAL HISTORY: Stroke. CABG. Coronary artery stent. [place] [facility] [place]. . FINDINGS: Single AP view the chest. Endotracheal tube and nasogastric tube remain in place. Increased bilateral perihilar and mid to upper lung zone opacity right greater than left. No evidence of pleural effusio n or pneumothorax. Cardiac mediastinal silhouette unchanged. CONCLUSION: Increased right greater than left pulmonary parenchymal opacity with distribution suggesting pulmonar y edema. Electronically signed by: Jason Beckham MD 01/12/2018 4:34 AM EDT
[2018-01-12 05:34] LABS: AUTOMATED NEUTROPHIL # 6.2 TH/MM3 (1.8-7.7); BASOPHIL % 0.5 % (0.0-2.0); EOSINOPHIL # 0.5 TH/MM3 (0-0.4); EOSINOPHIL % 5.4 % (0.0-4.0); HEMOGLOBIN 10.9 GM/DL (13.0-17.0); LYMPH % 16.1 % (9.0-44.0); LYMPHOCYTE # 1.5 TH/MM3 (1.0-4.8); MEAN CELL VOLUME 94.1 FL (80.0-100.0); MEAN CORPUSCULAR HEMOGLOBIN 31.2 PG (27.0-34.0); MEAN CORPUSCULAR HGB CONC 33.2 % (32.0-36.0); MEAN PLATELET VOLUME 9.6 FL (7.0-11.0); MONO % 9.3 % (0.0-8.0); MONOCYTE # 0.8 TH/MM3 (0-0.9); NEUT % 68.7 % (16.0-70.0); PLATELET COUNT 274 TH/MM3 (150-450); RED CELL DISTRIBUTION WIDTH 14.7 % (11.6-17.2)
[2018-01-12 05:49] LABS: ALBUMIN 1.9 GM/DL (3.4-5.0); ALT (GPT) 57 U/L (12-78); AST (GOT) 45 U/L (15-37); BICARBONATE 22.2 MEQ/L (21.0-32.0); BLOOD UREA NITROGEN 26 MG/DL (7-18); CALCIUM 8.4 MG/DL (8.5-10.1); CHLORIDE 112 MEQ/L (98-107); CREATININE 1.21 MG/DL (0.60-1.30); GLOMERULAR FILTRATION RATE 60 ML/MIN (>89); GLUCOSE,RANDOM 84 MG/DL (74-106); MAGNESIUM 2.5 MG/DL (1.5-2.5); SODIUM (NA) 145 MEQ/L (136-145)
[2018-01-12 05:52] LABS: ALKALINE PHOSPHATASE 153 U/L (45-117); PHOSPHORUS 3.1 MG/DL (2.5-4.9); TOTAL BILIRUBIN ADULT 0.4 MG/DL (0.2-1.0); TOTAL PROTEIN 6.7 GM/DL (6.4-8.2)
[2018-01-12] MEDS: INSULIN ASPART SUPPLEMENTAL SCALE SQ SCH ×3 (06:00→23:25)
[2018-01-12] MEDS ORDERED: PHARMACY ORDERED LAB ONE (07:45)
[2018-01-12] MEDS: METOPROLOL TARTRATE 25 MG TAB PO SCH ×2 (09:10→20:13)
[2018-01-12] MEDS: FAMOTIDINE 20 MG TAB PO SCH ×2 (09:10→20:13)
[2018-01-12] MEDS: DOCUSATE SODIUM 50 MG/SENNA 8.6 MG TAB PO SCH ×2 (09:10→20:13)
[2018-01-12] MEDS: AZITHROMYCIN 250 MG TAB PO SCH (09:11)
[2018-01-12] MEDS: guaiFENesin E.R. 600 MG TAB PO SCH ×2 (09:11→20:13)
[2018-01-12] MEDS: CHLORHEXIDINE 0.12% (ORAL KIT) 15 ML CUP MT SCH ×2 (09:13→20:13)
[2018-01-12] MEDS: ASPIRIN 81 MG CHEW TAB CHEW SCH (09:13)
[2018-01-12] MEDS: HEPARIN SODIUM - SQ 10,000 UNITS/ML VIAL SQ SCH ×2 (09:13→20:14)
[2018-01-12] MEDS: SODIUM CHLORIDE 0.9% FLUSH 10 ML FLUSH IV FLUSH SCH ×2 (09:18→20:13)
--- NOTE | 2018-01-12 16:47 | PD.CARD.PN ---
Subjective Subjective Remarks Telemetry sinus rhythm in the 80s No extubation yesterday CPAP today, possible extubation Mild hemoptysis Objective Medications Current Medications Medications (Trade) Dose Ordered Sig/Herber Route Start Time Stop Time Status Last Admin (NS Flush) 2 ml BID IV FLUSH 01/07/18 21:00 01/12/18 09:18 (NS Flush) 2 ml UNSCH PRN IV FLUSH 01/07/18 13:00 01/11/18 07:40 (Zithromax) 250 mg Taper DAILY PO 01/08/18 13:00 01/13/18 12:59 01/12/18 09:11 (Apresoline) 10 mg Q45M PRN PO 01/07/18 15:00 (Aspirin Chew) 81 mg DAILY CHEW 01/08/18 09:00 01/12/18 09:13 (Mucinex Er) 600 mg BID PO 01/08/18 11:15 01/12/18 09:11 (Tylenol) 650 mg Q4H PRN PO 01/08/18 11:30 01/10/18 11:51 (Zofran Odt) 4 mg Q6H PRN PO 01/08/18 12:15 (Reglan Inj) 5 mg Q6H PRN IV PUSH 01/08/18 11:30 (Tylenol) 650 mg Q6H PRN PO 01/08/18 11:30 (Percocet 5-325 Mg) 1 tab Q6H PRN PO 01/08/18 11:30 (Percocet 10-325 Mg) 1 tab Q6H PRN PO 01/08/18 11:30 01/08/18 12:22 (Morphine Inj) 2 mg Q3H PRN IV PUSH 01/08/18 12:15 (Morphine Inj) 4 mg Q3H PRN IV PUSH 01/08/18 12:15 (Narcan Inj) 0.4 mg UNSCH PRN IV PUSH 01/08/18 11:30 (Lashay-Colace) 1 tab BID PO 01/08/18 21:00 01/12/18 09:10 (Milk Of Magnesia Liq) 30 ml Q12H PRN PO 01/08/18 11:30 (Senokot) 17.2 mg Q12H PRN PO 01/08/18 11:30 (Dulcolax Supp) 10 mg DAILY PRN RECTAL 6/9/18 11:30 (Lactulose Liq) 30 ml DAILY PRN PO 01/08/18 11:30 (Robitussin Ac 200-20 Mg/10 ml Liq) 5 ml Q6H PRN PO 01/08/18 14:00 (Duoneb Neb) 1 ampule Q4HR NEB NEB 01/08/18 20:00 01/12/18 12:00 (Albuterol Neb) 2.5 mg Q2HR NEB PRN NEB 01/08/18 17:30 (Peridex 0.12% Liq) 15 ml BID@08,20 MT 01/09/18 08:00 01/12/18 09:13 Propofol 100 ml @ 1.95 mls/hr TITRATE PRN IV 01/08/18 23:15 01/12/18 13:57 Fentanyl Citrate 250 ml @ 5 mls/hr TITRATE PRN IV 01/08/18 23:15 01/12/18 02:20 (D50w (Vial) Inj) 50 ml UNSCH PRN IV PUSH 01/09/18 12:45 (Glucagon Inj) 1 mg UNSCH PRN OTHER 01/09/18 12:45 (NovoLOG SUPPLEMENTAL SCALE) 1 Q6HR SQ 01/09/18 12:45 01/09/18 17:49 (Heparin Inj) 5,000 units Q12HR SQ 01/09/18 21:00 01/12/18 09:13 (Pill Splitter) 1 ea UNSCH PRN OTHER 01/09/18 16:15 (Lopressor) 12.5 mg Q12HR PO 01/09/18 16:15 01/12/18 09:10 Potassium Chloride 100 ml @ 50 mls/hr Q2H PRN IV 01/10/18 10:45 Potassium Chloride 100 ml @ 50 mls/hr Q2H PRN IV 01/10/18 10:45 01/10/18 17:47 (K-Lyte Cl Eff) 50 meq UNSCH PRN PO 01/10/18 10:45 Potassium Chloride 100 ml @ 25 mls/hr UNSCH PRN IV 01/10/18 10:45 Potassium Chloride 100 ml @ 50 mls/hr Q2H PRN IV 01/10/18 10:45 Magnesium Sulfate 4 gm/Sodium Chloride 100 ml @ 50 mls/hr UNSCH PRN IV 6/11/18 10:45 (Mag-Ox) 800 mg UNSCH PRN PO 01/10/18 10:45 Magnesium Sulfate 2 gm/Sodium Chloride 100 ml @ 50 mls/hr UNSCH PRN IV 01/10/18 10:45 (K-Phos) 2,000 mg Q4H PRN PO 01/10/18 10:45 Sodium Phosphate 30 mmol/Sodium Chloride 250 ml @ 42 mls/hr UNSCH PRN IV 01/10/18 10:45 (K-Phos) 2,000 mg UNSCH PRN PO/TUBE 01/10/18 10:45 Potassium Phosphate 30 mmol/ Sodium Chloride 260 ml @ 42 mls/hr UNSCH PRN IV 01/10/18 10:45 (Pepcid) 10 mg BID PO 01/11/18 21:00 01/12/18 09:10 Ceftriaxone Sodium 2000 mg/ Sodium Chloride 100 ml @ 200 mls/hr Q24H IV 01/11/18 18:00 01/11/18 17:26 Vital Signs / I&O Vital Signs Date Time Temp Pulse Resp B/P (MAP) Pulse Ox O2 Delivery O2 Flow Rate FiO2 01/12/18 11:58 96 35 01/12/18 08:02 95 30 01/12/18 08:00 30 01/12/18 06:00 79 01/12/18 05:29 100 40 01/12/18 04:00 40 01/12/18 04:00 98.7 75 18 127/70 (89) 96 01/12/18 04:00 75 01/12/18 03:29 97 40 01/12/18 02:00 74 01/12/18 00:00 98.9 74 19 119/76 (90) 95 01/12/18 00:00 40 01/12/18 00:00 72 01/11/18 23:47 100 40 01/11/18 22:00 75 01/11/18 20:27 96 40 01/11/18 20:00 83 01/11/18 20:00 99.0 83 20 127/76 (93) 96 01/11/18 20:00 40 01/11/18 18:00 79 01/11/18 18:00 79 16 111/64 (80) 94 01/11/18 17:00 82 17 114/67 (83) 93 I/O 01/11/18 01/11/18 01/11/18 01/12/18 01/12/18 01/12/18 07:00 15:00 23:00 07:00 15:00 23:00 Intake Total 1053 ml 262.5 ml 716 ml 1023 ml Output Total 450 ml 425 ml 400 ml Balance 603 ml 262.5 ml 291 ml 623 ml IV Total 450 ml 262.5 ml 295 ml 350 ml Tube Feeding 543 ml 361 ml 553 ml Other 60 ml 60 ml 120 ml Output Urine Total 450 ml 425 ml 400 ml # Bowel Movements 1 1 Physical Exam GENERAL: Intubated and sedated SKIN: Warm and dry. HEAD: Atraumatic. Normocephalic. EYES: Pupils equal and round. No scleral icterus. No injection or drainage. ENT: No nasal bleeding or discharge. Mucous membranes pink and moist. NECK: Trachea midline. No JVD. CARDIOVASCULAR: Regular rate and rhythm. RESPIRATORY: No accessory muscle use. Decreased breath sounds with scattered rhonchi GASTROINTESTINAL: Abdomen soft, non-tender, nondistended. Hepatic and splenic margins not palpable. MUSCULOSKELETAL: Extremities without clubbing, cyanosis, or edema. No obvious deformities. NEUROLOGICAL: Intubated and sedated Laboratory Laboratory Tests Test 01/12/18 03:21 White Blood Count 9.0 TH/MM3 Red Blood Count 3.50 MIL/MM3 Hemoglobin 10.9 GM/DL Hematocrit 33.0 % Mean Corpuscular Volume 94.1 FL Mean Corpuscular Hemoglobin 31.2 PG Mean Corpuscular Hemoglobin Concent 33.2 % Red Cell Distribution Width 14.7 % Platelet Count 274 TH/MM3 Mean Platelet Volume 9.6 FL Neutrophils (%) (Auto) 68.7 % Lymphocytes (%) (Auto) 16.1 % Monocytes (%) (Auto) 9.3 % Eosinophils (%) (Auto) 5.4 % Basophils (%) (Auto) 0.5 % Neutrophils # (Auto) 6.2 TH/MM3 Lymphocytes # (Auto) 1.5 TH/MM3 Monocytes # (Auto) 0.8 TH/MM3 Eosinophils # (Auto) 0.5 TH/MM3 Basophils # (Auto) 0.0 TH/MM3 CBC Comment DIFF FINAL Differential Comment Blood Urea Nitrogen 26 MG/DL Creatinine 1.21 MG/DL Random Glucose 84 MG/DL Total Protein 6.7 GM/DL Albumin 1.9 GM/DL Calcium Level 8.4 MG/DL Phosphorus Level 3.1 MG/DL Magnesium Level 2.5 MG/DL Alkaline Phosphatase 153 U/L Aspartate Amino Transf (AST/SGOT) 45 U/L Alanine Aminotransferase (ALT/SGPT) 57 U/L Total Bilirubin 0.4 MG/DL Sodium Level 145 MEQ/L Potassium Level 4.4 MEQ/L Chloride Level 112 MEQ/L Carbon Dioxide Level 22.2 MEQ/L Anion Gap 11 MEQ/L Estimat Glomerular Filtration Rate 60 ML/MIN Imaging Last 24 hours Impressions Chest X-Ray 01/12/18 0000 Signed Impressions: CONCLUSION: Increased right greater than left pulmonary parenchymal opacity with distributi on suggesting pulmonary edema. Assessment and Plan Problem List: (1) Bilateral pneumonia ICD Codes: J18.9 - Pneumonia, unspecified organism Status: Acute (2) Hypoxia ICD Codes: R09.02 - Hypoxemia Status: Acute (3) Tachyarrhythmia ICD Codes: R00.0 - Tachycardia, unspecified Status: Acute (4) Paroxysmal atrial flutter ICD Codes: I48.92 - Unspecified atrial flutter Status: Acute Assessment and Plan 1) SOB secondary to PNA Bloody mucus, TB ruled out s/p intubation for respiratory failure 2) Aflutter with RVR, now in sinus rhythm Most likely potentiated by his underlying illness Not an anti-coagulation candidate at this time due to hemoptysis 3) EF 30-35% 4) 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 Lamar Echo technically difficult, does not appear like a replacement of aortic valve 5) Abdominal aortic aneurysm Follow up with Dr. Lamar 6) Tobacco cessation 7) Elevated troponins Type 2 in nature due to underlying illness/hypoxemia Medical management as he is not an invasive candidate with hemoptysis This can be reevaluated through out the hospital course and outpt Problem Qualifiers (1) Bilateral pneumonia: Qualified Codes: J18.1 - Lobar pneumonia, unspecified organism Atul Galan DO Jan 12, 2018 16:47
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
[2018-01-13] VITALS (41 sets, daily range): BP systolic 101–182; BP diastolic 56–94; PULSE 65–86; RESP 11–32; TEMP 98.9–99.8; O2SAT 89–98
[2018-01-13] MEDS: RESP: ALBUTEROL 2.5 MG/IPRATROPIUM 0.5 MG NEB (SCH) NEB ×5 (03:23→20:49)
[2018-01-13 04:04] LABS: HEMATOCRIT 30.5 % (39.0-51.0); HEMOGLOBIN 10.1 GM/DL (13.0-17.0); MEAN CELL VOLUME 93.9 FL (80.0-100.0); MEAN CORPUSCULAR HEMOGLOBIN 31.2 PG (27.0-34.0); MEAN CORPUSCULAR HGB CONC 33.2 % (32.0-36.0); MEAN PLATELET VOLUME 9.1 FL (7.0-11.0); PLATELET COUNT 296 TH/MM3 (150-450); RED BLOOD COUNT 3.25 MIL/MM3 (4.50-5.90); RED CELL DISTRIBUTION WIDTH 14.5 % (11.6-17.2)
[2018-01-13] MEDS: PROPOFOL 1000 MG/100 ML INJ 100 ML IV PRN ×3 (04:12→19:26)
[2018-01-13 04:29] LABS: BICARBONATE 24.9 MEQ/L (21.0-32.0); CALCIUM 8.2 MG/DL (8.5-10.1); CREATININE 1.07 MG/DL (0.60-1.30)
[2018-01-13] MEDS: INSULIN ASPART SUPPLEMENTAL SCALE SQ SCH ×3 (05:08→18:00)
[2018-01-13] MEDS: ASPIRIN 81 MG CHEW TAB CHEW SCH (08:11)
[2018-01-13] MEDS: SODIUM CHLORIDE 0.9% FLUSH 10 ML FLUSH IV FLUSH SCH ×2 (08:12→21:30)
[2018-01-13] MEDS: guaiFENesin E.R. 600 MG TAB PO SCH ×2 (08:12→21:00)
[2018-01-13] MEDS: AZITHROMYCIN 250 MG TAB PO SCH (08:12)
[2018-01-13] MEDS: CHLORHEXIDINE 0.12% (ORAL KIT) 15 ML CUP MT SCH ×2 (08:12→21:29)
[2018-01-13] MEDS: FAMOTIDINE 20 MG TAB PO SCH ×2 (08:12→21:30)
[2018-01-13] MEDS: DOCUSATE SODIUM 50 MG/SENNA 8.6 MG TAB PO SCH ×2 (08:12→21:30)
[2018-01-13] MEDS: HEPARIN SODIUM - SQ 10,000 UNITS/ML VIAL SQ SCH ×2 (08:12→21:30)
[2018-01-13] MEDS: METOPROLOL TARTRATE 25 MG TAB PO SCH ×3 (08:13→21:30)
[2018-01-13] MEDS ORDERED: MIDAZOLAM HCL 5 MG/ML VIAL (1 ML) ONE (10:15)
--- NOTE | 2018-01-13 12:17 | PD.CARD.PN ---
Subjective Subjective Remarks Telemetry sinus rhythm in the 80s Still having trouble with oxygenation Mucus somewhat darker, not as bloody Objective Medications Current Medications Medications (Trade) Dose Ordered Sig/Herber Route Start Time Stop Time Status Last Admin (NS Flush) 2 ml BID IV FLUSH 01/07/18 21:00 01/13/18 08:12 (NS Flush) 2 ml UNSCH PRN IV FLUSH 01/07/18 13:00 01/11/18 07:40 (Zithromax) 250 mg Taper DAILY PO 01/08/18 13:00 01/13/18 12:59 01/13/18 08:12 (Apresoline) 10 mg Q45M PRN PO 01/07/18 15:00 (Aspirin Chew) 81 mg DAILY CHEW 01/08/18 09:00 01/13/18 08:11 (Mucinex Er) 600 mg BID PO 01/08/18 11:15 01/13/18 08:12 (Tylenol) 650 mg Q4H PRN PO 01/08/18 11:30 01/10/18 11:51 (Zofran Odt) 4 mg Q6H PRN PO 01/08/18 12:15 (Reglan Inj) 5 mg Q6H PRN IV PUSH 01/08/18 11:30 (Tylenol) 650 mg Q6H PRN PO 01/08/18 11:30 (Percocet 5-325 Mg) 1 tab Q6H PRN PO 01/08/18 11:30 (Percocet 10-325 Mg) 1 tab Q6H PRN PO 01/08/18 11:30 01/08/18 12:22 (Morphine Inj) 2 mg Q3H PRN IV PUSH 01/08/18 12:15 (Morphine Inj) 4 mg Q3H PRN IV PUSH 01/08/18 12:15 (Narcan Inj) 0.4 mg UNSCH PRN IV PUSH 01/08/18 11:30 (Lashay-Colace) 1 tab BID PO 01/08/18 21:00 01/13/18 08:12 (Milk Of Magnesia Liq) 30 ml Q12H PRN PO 01/08/18 11:30 (Senokot) 17.2 mg Q12H PRN PO 01/08/18 11:30 (Dulcolax Supp) 10 mg DAILY PRN RECTAL 6/9/18 11:30 (Lactulose Liq) 30 ml DAILY PRN PO 01/08/18 11:30 (Robitussin Ac 200-20 Mg/10 ml Liq) 5 ml Q6H PRN PO 01/08/18 14:00 (Albuterol Neb) 2.5 mg Q2HR NEB PRN NEB 01/08/18 17:30 (Peridex 0.12% Liq) 15 ml BID@08,20 MT 01/09/18 08:00 01/13/18 08:12 Propofol 100 ml @ 1.95 mls/hr TITRATE PRN IV 01/08/18 23:15 01/13/18 04:12 Fentanyl Citrate 250 ml @ 5 mls/hr TITRATE PRN IV 01/08/18 23:15 01/12/18 22:26 (D50w (Vial) Inj) 50 ml UNSCH PRN IV PUSH 01/09/18 12:45 (Glucagon Inj) 1 mg UNSCH PRN OTHER 01/09/18 12:45 (NovoLOG SUPPLEMENTAL SCALE) 1 Q6HR SQ 01/09/18 12:45 01/09/18 17:49 (Heparin Inj) 5,000 units Q12HR SQ 01/09/18 21:00 01/13/18 08:12 (Pill Splitter) 1 ea UNSCH PRN OTHER 01/09/18 16:15 (Lopressor) 12.5 mg Q12HR PO 01/09/18 16:15 01/12/18 20:13 Potassium Chloride 100 ml @ 50 mls/hr Q2H PRN IV 01/10/18 10:45 Potassium Chloride 100 ml @ 50 mls/hr Q2H PRN IV 01/10/18 10:45 01/10/18 17:47 (K-Lyte Cl Eff) 50 meq UNSCH PRN PO 01/10/18 10:45 Potassium Chloride 100 ml @ 25 mls/hr UNSCH PRN IV 01/10/18 10:45 Potassium Chloride 100 ml @ 50 mls/hr Q2H PRN IV 01/10/18 10:45 Magnesium Sulfate 4 gm/Sodium Chloride 100 ml @ 50 mls/hr UNSCH PRN IV 01/10/18 10:45 (Mag-Ox) 800 mg UNSCH PRN PO 01/10/18 10:45 Magnesium Sulfate 2 gm/Sodium Chloride 100 ml @ 50 mls/hr UNSCH PRN IV 01/10/18 10:45 (K-Phos) 2,000 mg Q4H PRN PO 01/10/18 10:45 Sodium Phosphate 30 mmol/Sodium Chloride 250 ml @ 42 mls/hr UNSCH PRN IV 01/10/18 10:45 (K-Phos) 2,000 mg UNSCH PRN PO/TUBE 01/10/18 10:45 Potassium Phosphate 30 mmol/ Sodium Chloride 260 ml @ 42 mls/hr UNSCH PRN IV 01/10/18 10:45 (Pepcid) 10 mg BID PO 01/11/18 21:00 01/13/18 08:12 Ceftriaxone Sodium 2000 mg/ Sodium Chloride 100 ml @ 200 mls/hr Q24H IV 01/11/18 18:00 01/11/18 17:26 (Duoneb Neb) 1 ampule Q4HR NEB NEB 01/12/18 20:00 01/13/18 11:10 Vital Signs / I&O Vital Signs Date Time Temp Pulse Resp B/P (MAP) Pulse Ox O2 Delivery O2 Flow Rate FiO2 01/13/18 12:00 60 01/13/18 12:00 99.1 78 24 128/71 (90) 95 01/13/18 12:00 78 01/13/18 11:30 77 20 162/68 (99) 90 01/13/18 11:00 79 18 143/80 (101) 90 01/13/18 10:30 80 23 164/86 (112) 90 01/13/18 10:30 60 01/13/18 10:05 50 01/13/18 10:05 85 32 160/81 (107) 94 01/13/18 10:04 97 50 01/13/18 10:00 83 01/13/18 10:00 83 23 182/94 (123) 89 01/13/18 09:30 86 18 135/89 (104) 91 01/13/18 09:00 84 19 147/82 (103) 96 01/13/18 08:30 76 20 144/65 (91) 95 01/13/18 08:15 40 01/13/18 08:15 40 01/13/18 08:00 99.4 72 16 107/57 (74) 94 01/13/18 08:00 45 01/13/18 08:00 72 01/13/18 07:53 98 50 01/13/18 07:30 70 16 115/65 (82) 96 01/13/18 07:00 71 16 117/61 (79) 95 01/13/18 06:00 74 01/13/18 04:30 50 01/13/18 04:26 94 50 01/13/18 04:00 40 01/13/18 04:00 76 01/13/18 04:00 99.4 76 15 121/66 (84) 94 01/13/18 02:00 76 01/13/18 01:15 94 40 01/13/18 00:00 35 01/13/18 00:00 79 01/13/18 00:00 99.5 79 16 107/62 (77) 94 01/12/18 22:30 90 40 01/12/18 22:00 81 01/12/18 20:23 93 35 01/12/18 20:00 99.0 77 17 121/67 (85) 93 01/12/18 20:00 35 01/12/18 20:00 77 01/12/18 18:00 83 01/12/18 16:45 96 35 01/12/18 16:00 40 01/12/18 16:00 99.0 94 32 180/92 (121) 97 01/12/18 16:00 94 01/12/18 14:00 85 I/O 01/12/18 01/12/18 01/12/18 01/13/18 01/13/18 01/13/18 07:00 15:00 23:00 07:00 15:00 23:00 Intake Total 1023 ml 137.1 ml 840.2 ml 831 ml Output Total 400 ml 450 ml 300 ml Balance 623 ml 137.1 ml 390.2 ml 531 ml IV Total 350 ml 137.1 ml 411.2 ml 245 ml Tube Feeding 553 ml 329 ml 526 ml Other 120 ml 100 ml 60 ml Output Urine Total 400 ml 450 ml 300 ml # Bowel Movements 1 1 0 Physical Exam GENERAL: Intubated and sedated SKIN: Warm and dry. HEAD: Atraumatic. Normocephalic. EYES: Pupils equal and round. No scleral icterus. No injection or drainage. ENT: No nasal bleeding or discharge. Mucous membranes pink and moist. NECK: Trachea midline. No JVD. CARDIOVASCULAR: Regular rate and rhythm. RESPIRATORY: No accessory muscle use. Decreased breath sounds with scattered rhonchi GASTROINTESTINAL: Abdomen soft, non-tender, nondistended. Hepatic and splenic margins not palpable. MUSCULOSKELETAL: Extremities without clubbing, cyanosis, or edema. No obvious deformities. NEUROLOGICAL: Intubated and sedated Laboratory Laboratory Tests Test 01/13/18 02:44 White Blood Count 7.0 TH/MM3 Red Blood Count 3.25 MIL/MM3 Hemoglobin 10.1 GM/DL Hematocrit 30.5 % Mean Corpuscular Volume 93.9 FL Mean Corpuscular Hemoglobin 31.2 PG Mean Corpuscular Hemoglobin Concent 33.2 % Red Cell Distribution Width 14.5 % Platelet Count 296 TH/MM3 Mean Platelet Volume 9.1 FL Blood Urea Nitrogen 27 MG/DL Creatinine 1.07 MG/DL Random Glucose 101 MG/DL Calcium Level 8.2 MG/DL Sodium Level 146 MEQ/L Potassium Level 4.2 MEQ/L Chloride Level 112 MEQ/L Carbon Dioxide Level 24.9 MEQ/L Anion Gap 9 MEQ/L Estimat Glomerular Filtration Rate 69 ML/MIN Assessment and Plan Problem List: (1) Bilateral pneumonia ICD Codes: J18.9 - Pneumonia, unspecified organism Status: Acute (2) Hypoxia ICD Codes: R09.02 - Hypoxemia Status: Acute (3) Tachyarrhythmia ICD Codes: R00.0 - Tachycardia, unspecified Status: Acute (4) Paroxysmal atrial flutter ICD Codes: I48.92 - Unspecified atrial flutter Status: Acute Assessment and Plan 1) SOB secondary to PNA Bloody mucus, TB ruled out s/p intubation for respiratory failure 2) Aflutter with RVR, now in sinus rhythm Most likely potentiated by his underlying illness Not an anti-coagulation candidate at this time due to hemoptysis 3) EF 30-35% 4) 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 Lamar Echo technically difficult, does not appear like a replacement of aortic valve 5) Abdominal aortic aneurysm Follow up with Dr. Lamar 6) Tobacco cessation 7) Elevated troponins Type 2 in nature due to underlying illness/hypoxemia Medical management as he is not an invasive candidate with hemoptysis This can be reevaluated through out the hospital course and outpt Problem Qualifiers (1) Bilateral pneumonia: Qualified Codes: J18.1 - Lobar pneumonia, unspecified organism Atul Galan DO Jan 13, 2018 12:17
[2018-01-13] MEDS: fentaNYL DRIP 250 ML IV PRN (17:27)
[2018-01-13] MEDS: cefTRIAXone INJ 2,000 MG in SODIUM CHLORIDE 0.9% INJ 100 ML IV SCH ×2 (17:27→17:29)
--- NOTE | 2018-01-13 17:52 | HHI.PR ---
Subjective Remarks intubated on mechanical ventilator. failed a weaning trial today no hemoptysis Objective Vital Signs Date Time Temp Pulse Resp B/P (MAP) Pulse Ox O2 Delivery O2 Flow Rate FiO2 01/13/18 17:04 93 50 01/13/18 16:30 69 17 107/62 (77) 97 01/13/18 16:00 71 01/13/18 16:00 60 01/13/18 16:00 99.3 71 23 101/58 (72) 95 01/13/18 15:30 67 16 107/60 (76) 95 01/13/18 15:00 68 16 101/57 (72) 94 01/13/18 14:30 69 16 107/60 (76) 95 01/13/18 14:00 70 01/13/18 14:00 70 17 121/64 (83) 96 01/13/18 13:30 71 16 128/69 (88) 96 01/13/18 13:00 72 18 117/62 (80) 94 01/13/18 12:00 60 01/13/18 12:00 99.1 78 24 128/71 (90) 95 01/13/18 12:00 78 01/13/18 11:30 77 20 162/68 (99) 90 01/13/18 11:00 79 18 143/80 (101) 90 01/13/18 10:30 80 23 164/86 (112) 90 01/13/18 10:30 60 01/13/18 10:05 50 01/13/18 10:05 85 32 160/81 (107) 94 01/13/18 10:04 97 50 01/13/18 10:00 83 01/13/18 10:00 83 23 182/94 (123) 89 01/13/18 09:30 86 18 135/89 (104) 91 01/13/18 09:00 84 19 147/82 (103) 96 01/13/18 08:30 76 20 144/65 (91) 95 01/13/18 08:15 40 01/13/18 08:15 40 01/13/18 08:00 99.4 72 16 107/57 (74) 94 01/13/18 08:00 45 01/13/18 08:00 72 01/13/18 07:53 98 50 01/13/18 07:30 70 16 115/65 (82) 96 01/13/18 07:00 71 16 117/61 (79) 95 01/13/18 06:00 74 01/13/18 04:30 50 01/13/18 04:26 94 50 01/13/18 04:00 40 01/13/18 04:00 76 01/13/18 04:00 99.4 76 15 121/66 (84) 94 01/13/18 02:00 76 01/13/18 01:15 94 40 01/13/18 00:00 35 01/13/18 00:00 79 01/13/18 00:00 99.5 79 16 107/62 (77) 94 01/12/18 22:30 90 40 01/12/18 22:00 81 01/12/18 20:23 93 35 01/12/18 20:00 99.0 77 17 121/67 (85) 93 01/12/18 20:00 35 01/12/18 20:00 77 01/12/18 18:00 83 I/O 01/12/18 01/12/18 01/12/18 01/13/18 01/13/18 01/13/18 06:59 14:59 22:59 06:59 14:59 22:59 Intake Total 1023 ml 101.5 ml 875.8 ml 831 ml 66 ml Output Total 400 ml 450 ml 300 ml Balance 623 ml 101.5 ml 425.8 ml 531 ml 66 ml IV Total 350 ml 101.5 ml 446.8 ml 245 ml 66 ml Tube Feeding 553 ml 329 ml 526 ml Other 120 ml 100 ml 60 ml Output Urine Total 400 ml 450 ml 300 ml # Bowel Movements 1 1 0 Result Diagram: 01/13/18 0244 01/13/184 Objective Remarks Physical exam: General appearance: Intubated Head and neck examination: ET tube Neck: [supple trachea midline] Lungs: Mild basilar crackles Heart: [normal S1-S2] Abdomen: [soft nontender positive bowel sounds] Extremities: [no significant edema no cyanosis] Neurological examination: awake moves extremities follows simple commands Skin: [no rashes seen] Assessment and Plan Assessment and Plan Acute ventilator dependent respiratory failure Severe pneumonia Hemoptysis Continue current antibiotics as per ID recs continue Mechanical ventilator management as per the outside solar sales consultant possible weaning trial in am GI DVT prevention Appreciate help from the medical outside solar sales consultant still critically ill but making progress no new recs from pulm at this point Vasiliy Rojas MD Jan 13, 2018 17:51
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
[2018-01-14] VITALS (39 sets, daily range): BP systolic 107–180; BP diastolic 55–98; PULSE 66–93; RESP 11–33; TEMP 98.2–99.6; O2SAT 92–100
[2018-01-14] MEDS: RESP: ALBUTEROL 2.5 MG/IPRATROPIUM 0.5 MG NEB (SCH) NEB ×6 (00:21→21:00)
[2018-01-14] MEDS: PROPOFOL 1000 MG/100 ML INJ 100 ML IV PRN ×3 (04:06→20:00)
[2018-01-14] MEDS: INSULIN ASPART SUPPLEMENTAL SCALE SQ SCH ×4 (06:00→17:50)
[2018-01-14 06:53] LABS: HEMATOCRIT 34.4 % (39.0-51.0); HEMOGLOBIN 11.2 GM/DL (13.0-17.0); MEAN CELL VOLUME 95.2 FL (80.0-100.0); MEAN CORPUSCULAR HEMOGLOBIN 31.1 PG (27.0-34.0); MEAN CORPUSCULAR HGB CONC 32.7 % (32.0-36.0); MEAN PLATELET VOLUME 9.5 FL (7.0-11.0); PLATELET COUNT 347 TH/MM3 (150-450); RED BLOOD COUNT 3.61 MIL/MM3 (4.50-5.90); RED CELL DISTRIBUTION WIDTH 14.7 % (11.6-17.2); WHITE BLOOD COUNT 8.3 TH/MM3 (4.0-11.0)
[2018-01-14 07:24] LABS: BICARBONATE 26.3 MEQ/L (21.0-32.0); CALCIUM 8.8 MG/DL (8.5-10.1); CREATININE 1.05 MG/DL (0.60-1.30)
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
[2018-01-14] MEDS ORDERED: FUROSEMIDE 40 MG/4 ML VIAL IV PUSH ONE (08:45)
[2018-01-14] MEDS: METOPROLOL TARTRATE 25 MG TAB PO SCH ×2 (10:04→20:11)
[2018-01-14] MEDS: CHLORHEXIDINE 0.12% (ORAL KIT) 15 ML CUP MT SCH ×2 (10:04→20:10)
[2018-01-14] MEDS: DOCUSATE SODIUM 50 MG/SENNA 8.6 MG TAB PO SCH ×2 (10:04→20:10)
[2018-01-14] MEDS: guaiFENesin E.R. 600 MG TAB PO SCH ×2 (10:04→20:10)
[2018-01-14] MEDS: FAMOTIDINE 20 MG TAB PO SCH ×2 (10:04→20:10)
[2018-01-14] MEDS: SODIUM CHLORIDE 0.9% FLUSH 10 ML FLUSH IV FLUSH SCH ×2 (10:04→20:11)
[2018-01-14] MEDS: HEPARIN SODIUM - SQ 10,000 UNITS/ML VIAL SQ SCH ×2 (10:05→20:10)
[2018-01-14] MEDS: ASPIRIN 81 MG CHEW TAB CHEW SCH (10:05)
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
--- NOTE | 2018-01-14 14:02 | HHI.IDPN ---
Subjective Subjective Remarks remains on vent heavy secretions and failing weaning no fever Antibiotics CFTX azithro: completed y Allergies: Coded Allergies: No Known Allergies (Verified Allergy, Unknown, 01/07/18) Objective . Vital Signs Date Time Temp Pulse Resp B/P (MAP) Pulse Ox O2 Delivery O2 Flow Rate FiO2 01/14/18 12:40 96 40 01/14/18 10:00 80 18 138/72 (94) 97 01/14/18 09:36 96 40 01/14/18 09:31 71 33 138/63 (88) 92 01/14/18 09:30 40 01/14/18 09:00 68 17 127/59 (81) 95 01/14/18 08:30 69 18 129/59 (82) 94 01/14/18 08:00 40 01/14/18 08:00 99.6 69 20 123/68 (86) 95 01/14/18 07:30 69 13 123/64 (83) 96 01/14/18 07:00 71 13 120/60 (80) 94 01/14/18 06:00 76 01/14/18 04:20 95 40 01/14/18 04:00 75 01/14/18 04:00 60 01/14/18 04:00 98.2 71 16 127/66 (86) 94 01/14/18 03:30 69 17 126/69 (88) 94 01/14/18 03:00 71 16 107/64 (78) 96 01/14/18 02:30 70 17 118/66 (83) 95 01/14/18 02:00 71 17 131/70 (90) 94 01/14/18 02:00 73 01/14/18 01:30 70 17 116/60 (78) 96 01/14/18 01:00 70 16 136/60 (85) 95 01/14/18 00:21 96 40 01/14/18 00:00 98.7 67 16 111/60 (77) 95 01/14/18 00:00 67 01/14/18 00:00 60 01/13/18 23:30 67 18 113/61 (78) 96 01/13/18 23:00 70 16 120/64 (82) 95 01/13/18 22:30 69 16 112/61 (78) 96 01/13/18 22:00 69 17 117/63 (81) 96 01/13/18 22:00 69 01/13/18 21:30 68 15 107/61 (76) 97 01/13/18 21:00 65 18 107/56 (73) 96 01/13/18 20:50 97 50 01/13/18 20:30 65 11 110/62 (78) 96 01/13/18 20:00 66 01/13/18 20:00 98.9 66 14 112/64 (80) 97 01/13/18 20:00 60 01/13/18 19:30 67 17 111/61 (78) 96 01/13/18 19:00 68 15 113/62 (79) 96 01/13/18 18:00 74 01/13/18 17:04 93 50 01/13/18 16:30 69 17 107/62 (77) 97 01/13/18 16:00 71 01/13/18 16:00 60 01/13/18 16:00 99.3 71 23 101/58 (72) 95 01/13/18 15:30 67 16 107/60 (76) 95 01/13/18 15:00 68 16 101/57 (72) 94 01/13/18 14:30 69 16 107/60 (76) 95 01/13/18 14:00 70 01/13/18 14:00 70 17 121/64 (83) 96 . Laboratory Tests Test 01/13/18 02:44 01/14/18 05:05 White Blood Count 7.0 TH/MM3 8.3 TH/MM3 Red Blood Count 3.25 MIL/MM3 3.61 MIL/MM3 Hemoglobin 10.1 GM/DL 11.2 GM/DL Hematocrit 30.5 % 34.4 % Mean Corpuscular Volume 93.9 FL 95.2 FL Mean Corpuscular Hemoglobin 31.2 PG 31.1 PG Mean Corpuscular Hemoglobin Concent 33.2 % 32.7 % Red Cell Distribution Width 14.5 % 14.7 % Platelet Count 296 TH/MM3 347 TH/MM3 Mean Platelet Volume 9.1 FL 9.5 FL Laboratory Tests Test 01/13/18 02:44 01/14/18 05:05 Blood Urea Nitrogen 27 MG/DL 28 MG/DL Creatinine 1.07 MG/DL 1.05 MG/DL Random Glucose 101 MG/DL 106 MG/DL Calcium Level 8.2 MG/DL 8.8 MG/DL Sodium Level 146 MEQ/L 146 MEQ/L Potassium Level 4.2 MEQ/L 4.4 MEQ/L Chloride Level 112 MEQ/L 109 MEQ/L Carbon Dioxide Level 24.9 MEQ/L 26.3 MEQ/L Anion Gap 9 MEQ/L 11 MEQ/L Estimat Glomerular Filtration Rate 69 ML/MIN 71 ML/MIN Imaging Last Impressions Head CT 01/14/18 Signed Impressions: CONCLUSION: 1. Negative for acute process. Chest X-Ray 01/12/18 Signed Impressions: CONCLUSION: Increased right greater than left pulmonary parenchymal opacity with distributi on suggesting pulmonary edema. Renal Ultrasound 01/08/18 Signed Impressions: CONCLUSION: 1. Atrophic left kidney. Right kidney unremarkable. No hydronephrosis. Lower Extremity Ultrasound 01/08/18 Signed Impressions: CONCLUSION: 1. Negative for deep venous thrombosis bilateral lower extremities. Chest CT 01/07/18 Addendum Impressions: CONCLUSION: 1. There is airspace consolidation in bilateral upper lobes highly suspicious for pneumonia. 2. Small bilateral pleural effusions. 3. 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 4. Superior endplate depression and compression of one of the upper lumbar stevan tebrae not adequately characterized probably chronic. Physical Exam CONSTITUTIONAL/GENERAL: This is an adequately nourished patient, in no apparent distress. TUBES/LINES/DRAINS: SKIN: No jaundice, rashes, or lesions. Skin temperature appropriate. Not diaphoretic. CARDIOVASCULAR: Regular rate and rhythm without murmurs, gallops, or rubs. No JVD. Peripheral pulses symmetric. RESPIRATORY/CHEST: Symmetric, unlabored respirations. Diffuse b/l rhonchi. Breath sounds equal bilaterally. GASTROINTESTINAL: Abdomen soft, non-tender, nondistended. No hepato-splenomegaly , or palpable masses. No guarding. Bowel sounds present. GENITOURINARY: Without palpable bladder distension. Yao catheter in place. with clear yellow urine MUSCULOSKELETAL: Extremities without clubbing, cyanosis, or edema. NEUROLOGICAL:sedated. Unresponsive PSYCHIATRIC: unable to assess Assessment & Plan Remarks Severe B/l PNA - hemoptysis - Gstain of sputum is neg for org's failure to wean Acute hypoxic resp failure Multiple med problems MTB negative cont current abx fu cultures,including AFB cont CFTX -azithro complete repeat CXR rechk soputum Humera Goetz MD Jan 14, 2018 14:02
[2018-01-14] MEDS: fentaNYL DRIP 250 ML IV PRN ×2 (14:18→23:24)
--- NOTE | 2018-01-14 17:26 | PD.CARD.PN ---
Subjective Subjective Remarks Telemetry sinus rhythm in the 80s Still having trouble with oxygenation Mucus somewhat darker, not as bloody Objective Medications Current Medications Medications (Trade) Dose Ordered Sig/Herber Route Start Time Stop Time Status Last Admin (NS Flush) 2 ml BID IV FLUSH 01/07/18 21:00 01/14/18 10:04 (NS Flush) 2 ml UNSCH PRN IV FLUSH 01/07/18 13:00 01/11/18 07:40 (Apresoline) 10 mg Q45M PRN PO 01/07/18 15:00 (Aspirin Chew) 81 mg DAILY CHEW 01/08/18 09:00 01/14/18 10:05 (Mucinex Er) 600 mg BID PO 01/08/18 11:15 01/14/18 10:04 (Tylenol) 650 mg Q4H PRN PO 01/08/18 11:30 01/10/18 11:51 (Zofran Odt) 4 mg Q6H PRN PO 01/08/18 12:15 (Reglan Inj) 5 mg Q6H PRN IV PUSH 01/08/18 11:30 (Tylenol) 650 mg Q6H PRN PO 01/08/18 11:30 (Percocet 5-325 Mg) 1 tab Q6H PRN PO 01/08/18 11:30 (Percocet 10-325 Mg) 1 tab Q6H PRN PO 01/08/18 11:30 01/08/18 12:22 (Morphine Inj) 2 mg Q3H PRN IV PUSH 01/08/18 12:15 (Morphine Inj) 4 mg Q3H PRN IV PUSH 01/08/18 12:15 (Narcan Inj) 0.4 mg UNSCH PRN IV PUSH 01/08/18 11:30 (Lashay-Colace) 1 tab BID PO 01/08/18 21:00 01/14/18 10:04 (Milk Of Magnesia Liq) 30 ml Q12H PRN PO 01/08/18 11:30 (Senokot) 17.2 mg Q12H PRN PO 01/08/18 11:30 (Dulcolax Supp) 10 mg DAILY PRN RECTAL 01/08/18 11:30 (Lactulose Liq) 30 ml DAILY PRN PO 01/08/18 11:30 (Robitussin Ac 200-20 Mg/10 ml Liq) 5 ml Q6H PRN PO 01/08/18 14:00 (Albuterol Neb) 2.5 mg Q2HR NEB PRN NEB 01/08/18 17:30 (Peridex 0.12% Liq) 15 ml BID@08,20 MT 01/09/18 08:00 01/14/18 10:04 Propofol 100 ml @ 1.95 mls/hr TITRATE PRN IV 01/08/18 23:15 01/14/18 14:41 Fentanyl Citrate 250 ml @ 5 mls/hr TITRATE PRN IV 01/08/18 23:15 01/14/18 14:18 (D50w (Vial) Inj) 50 ml UNSCH PRN IV PUSH 01/09/18 12:45 (Glucagon Inj) 1 mg UNSCH PRN OTHER 01/09/18 12:45 (NovoLOG SUPPLEMENTAL SCALE) 1 Q6HR SQ 01/09/18 12:45 01/09/18 17:49 (Heparin Inj) 5,000 units Q12HR SQ 01/09/18 21:00 01/14/18 10:05 (Pill Splitter) 1 ea UNSCH PRN OTHER 01/09/18 16:15 (Lopressor) 12.5 mg Q12HR PO 01/09/18 16:15 01/14/18 10:04 Potassium Chloride 100 ml @ 50 mls/hr Q2H PRN IV 01/10/18 10:45 Potassium Chloride 100 ml @ 50 mls/hr Q2H PRN IV 01/10/18 10:45 01/10/18 17:47 (K-Lyte Cl Eff) 50 meq UNSCH PRN PO 01/10/18 10:45 Potassium Chloride 100 ml @ 25 mls/hr UNSCH PRN IV 01/10/18 10:45 Potassium Chloride 100 ml @ 50 mls/hr Q2H PRN IV 01/10/18 10:45 Magnesium Sulfate 4 gm/Sodium Chloride 100 ml @ 50 mls/hr UNSCH PRN IV 01/10/18 10:45 (Mag-Ox) 800 mg UNSCH PRN PO 01/10/18 10:45 Magnesium Sulfate 2 gm/Sodium Chloride 100 ml @ 50 mls/hr UNSCH PRN IV 01/10/18 10:45 (K-Phos) 2,000 mg Q4H PRN PO 01/10/18 10:45 Sodium Phosphate 30 mmol/Sodium Chloride 250 ml @ 42 mls/hr UNSCH PRN IV 01/10/18 10:45 (K-Phos) 2,000 mg UNSCH PRN PO/TUBE 01/10/18 10:45 Potassium Phosphate 30 mmol/ Sodium Chloride 260 ml @ 42 mls/hr UNSCH PRN IV 01/10/18 10:45 Ceftriaxone Sodium 2000 mg/ Sodium Chloride 100 ml @ 200 mls/hr Q24H IV 01/11/18 18:00 01/13/18 17:29 (Duoneb Neb) 1 ampule Q4HR NEB NEB 01/12/18 20:00 01/14/18 15:53 (Pepcid) 20 mg BID PO 01/14/18 21:00 Vital Signs / I&O Vital Signs Date Time Temp Pulse Resp B/P (MAP) Pulse Ox O2 Delivery O2 Flow Rate FiO2 01/14/18 17:00 70 16 112/61 (78) 95 01/14/18 16:30 73 16 127/65 (85) 95 01/14/18 16:00 99.6 70 16 117/55 (75) 93 01/14/18 16:00 40 01/14/18 16:00 70 01/14/18 15:54 94 40 01/14/18 15:00 77 16 137/79 (98) 96 01/14/18 14:30 78 21 152/75 (100) 100 01/14/18 14:00 83 18 159/77 (104) 95 01/14/18 14:00 83 01/14/18 13:41 83 17 120/62 (81) 95 01/14/18 13:30 88 15 163/98 (119) 96 01/14/18 13:09 83 20 167/83 (111) 94 01/14/18 13:00 86 17 170/81 (110) 94 01/14/18 12:40 96 40 01/14/18 12:30 93 12 180/89 (119) 96 01/14/18 12:00 40 01/14/18 12:00 84 01/14/18 12:00 99.6 84 19 176/93 (120) 95 01/14/18 11:30 77 16 156/78 (104) 93 01/14/18 11:00 78 11 174/81 (112) 92 01/14/18 10:00 80 18 138/72 (94) 97 01/14/18 10:00 80 01/14/18 09:36 96 40 01/14/18 09:31 71 33 138/63 (88) 92 01/14/18 09:30 40 01/14/18 09:00 68 17 127/59 (81) 95 01/14/18 08:30 69 18 129/59 (82) 94 01/14/18 08:00 40 01/14/18 08:00 69 01/14/18 08:00 99.6 69 20 123/68 (86) 95 01/14/18 07:30 69 13 123/64 (83) 96 01/14/18 07:00 71 13 120/60 (80) 94 01/14/18 06:00 76 01/14/18 04:20 95 40 01/14/18 04:00 75 01/14/18 04:00 60 01/14/18 04:00 98.2 71 16 127/66 (86) 94 01/14/18 03:30 69 17 126/69 (88) 94 01/14/18 03:00 71 16 107/64 (78) 96 01/14/18 02:30 70 17 118/66 (83) 95 01/14/18 02:00 71 17 131/70 (90) 94 01/14/18 02:00 73 01/14/18 01:30 70 17 116/60 (78) 96 01/14/18 01:00 70 16 136/60 (85) 95 01/14/18 00:21 96 40 01/14/18 00:00 98.7 67 16 111/60 (77) 95 01/14/18 00:00 67 01/14/18 00:00 60 01/13/18 23:30 67 18 113/61 (78) 96 01/13/18 23:00 70 16 120/64 (82) 95 01/13/18 22:30 69 16 112/61 (78) 96 01/13/18 22:00 69 17 117/63 (81) 96 01/13/18 22:00 69 01/13/18 21:30 68 15 107/61 (76) 97 01/13/18 21:00 65 18 107/56 (73) 96 01/13/18 20:50 97 50 01/13/18 20:30 65 11 110/62 (78) 96 01/13/18 20:00 66 01/13/18 20:00 98.9 66 14 112/64 (80) 97 01/13/18 20:00 60 01/13/18 19:30 67 17 111/61 (78) 96 01/13/18 19:00 68 15 113/62 (79) 96 01/13/18 18:00 74 I/O 01/13/18 01/13/18 01/13/18 01/14/18 01/14/18 01/14/18 07:00 15:00 23:00 07:00 15:00 23:00 Intake Total 831 ml 66 ml 1003 ml 874 ml 161 ml Output Total 300 ml 450 ml 300 ml Balance 531 ml 66 ml 553 ml 574 ml 161 ml IV Total 245 ml 66 ml 339 ml 289 ml 161 ml Tube Feeding 526 ml 604 ml 525 ml Tube Irrigant 60 ml Other 60 ml 60 ml Output Urine Total 300 ml 450 ml 300 ml Bladder Scan Volume Amount 258 ml # Bowel Movements 0 0 0 Physical Exam GENERAL: Intubated and sedated SKIN: Warm and dry. HEAD: Atraumatic. Normocephalic. EYES: Pupils equal and round. No scleral icterus. No injection or drainage. ENT: No nasal bleeding or discharge. Mucous membranes pink and moist. NECK: Trachea midline. No JVD. CARDIOVASCULAR: Regular rate and rhythm. RESPIRATORY: No accessory muscle use. Decreased breath sounds with scattered rhonchi GASTROINTESTINAL: Abdomen soft, non-tender, nondistended. Hepatic and splenic margins not palpable. MUSCULOSKELETAL: Extremities without clubbing, cyanosis, or edema. No obvious deformities. NEUROLOGICAL: Intubated and sedated Laboratory Laboratory Tests Test 01/14/18 05:05 White Blood Count 8.3 TH/MM3 Red Blood Count 3.61 MIL/MM3 Hemoglobin 11.2 GM/DL Hematocrit 34.4 % Mean Corpuscular Volume 95.2 FL Mean Corpuscular Hemoglobin 31.1 PG Mean Corpuscular Hemoglobin Concent 32.7 % Red Cell Distribution Width 14.7 % Platelet Count 347 TH/MM3 Mean Platelet Volume 9.5 FL Blood Urea Nitrogen 28 MG/DL Creatinine 1.05 MG/DL Random Glucose 106 MG/DL Calcium Level 8.8 MG/DL Sodium Level 146 MEQ/L Potassium Level 4.4 MEQ/L Chloride Level 109 MEQ/L Carbon Dioxide Level 26.3 MEQ/L Anion Gap 11 MEQ/L Estimat Glomerular Filtration Rate 71 ML/MIN Imaging Last [address] 01/14/18 0000 Signed Impressions: CONCLUSION: 1. Negative for acute process. Assessment and Plan Problem List: (1) Bilateral pneumonia ICD Codes: J18.9 - Pneumonia, unspecified organism Status: Acute (2) Hypoxia ICD Codes: R09.02 - Hypoxemia Status: Acute (3) Tachyarrhythmia ICD Codes: R00.0 - Tachycardia, unspecified Status: Acute (4) Paroxysmal atrial flutter ICD Codes: I48.92 - Unspecified atrial flutter Status: Acute Assessment and Plan 1) SOB secondary to PNA Bloody mucus, TB ruled out s/p intubation for respiratory failure 2) Aflutter with RVR, now in sinus rhythm Most likely potentiated by his underlying illness Not an anti-coagulation candidate at this time due to hemoptysis 3) EF 30-35% 4) 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 Lamar Echo technically difficult, does not appear like a replacement of aortic valve 5) Abdominal aortic aneurysm Follow up with Dr. Lamar 6) Tobacco cessation 7) Elevated troponins Type 2 in nature due to underlying illness/hypoxemia Medical management as he is not an invasive candidate with hemoptysis This can be reevaluated through out the hospital course and outpt 8) Dr. Greene available over the weekend PRN, will plan to see on Wednesday if concerns Problem Qualifiers (1) Bilateral pneumonia: Qualified Codes: J18.1 - Lobar pneumonia, unspecified organism Atul Galan DO Jan 14, 2018 17:26
[2018-01-14] MEDS: cefTRIAXone INJ 2,000 MG in SODIUM CHLORIDE 0.9% INJ 100 ML IV SCH (17:41)
[2018-01-15] VITALS (22 sets, daily range): BP systolic 117–163; BP diastolic 56–95; PULSE 68–123; RESP 16–25; TEMP 97.6–100.4; O2SAT 93–100
[2018-01-15] MEDS: RESP: ALBUTEROL 2.5 MG/IPRATROPIUM 0.5 MG NEB (SCH) NEB ×7 (00:03→23:35)
[2018-01-15] MEDS: PROPOFOL 1000 MG/100 ML INJ 100 ML IV PRN ×3 (00:40→21:31)
--- NOTE | 2018-01-15 05:08 | RADRPT ---
EXAM DATE: 01/15/2018 4:58 AM EDT AGE/SEX: 67 years / Male INDICATIONS: Shortness of breath, possible pulmonary CLINICAL DATA: This is the patient's subsequent encounter. Patient reports that signs and symptoms h ave been present for 1 week and indicates a pain score of Nonresponsive. MEDICAL/SURGICAL HISTORY: Stroke. CABG. COMPARISON: [facility] [place], CHEST SINGLE AP, 01/12/2018. . FINDINGS: A single AP view of the chest demonstrates previous CABG. Worsening bilateral airspace disease greate r in the right lung. Endotracheal tube and nasogastric tube are stable.. The cardiomediastinal conto urs are unremarkable. Osseous structures are intact. CONCLUSION: Slight worsening bilateral airspace disease Electronically signed by: Jaden Winter MD 01/15/2018 5:07 AM EDT
[2018-01-15 05:56] LABS: HEMATOCRIT 36.6 % (39.0-51.0); HEMOGLOBIN 11.9 GM/DL (13.0-17.0); MEAN CELL VOLUME 95.2 FL (80.0-100.0); MEAN CORPUSCULAR HEMOGLOBIN 30.9 PG (27.0-34.0); MEAN CORPUSCULAR HGB CONC 32.5 % (32.0-36.0); MEAN PLATELET VOLUME 9.4 FL (7.0-11.0); PLATELET COUNT 365 TH/MM3 (150-450); RED BLOOD COUNT 3.84 MIL/MM3 (4.50-5.90); RED CELL DISTRIBUTION WIDTH 14.3 % (11.6-17.2); WHITE BLOOD COUNT 9.3 TH/MM3 (4.0-11.0)
[2018-01-15] MEDS: INSULIN ASPART SUPPLEMENTAL SCALE SQ SCH ×4 (06:00→18:00)
[2018-01-15 06:31] LABS: BICARBONATE 30.8 MEQ/L (21.0-32.0); CALCIUM 8.8 MG/DL (8.5-10.1); CREATININE 1.16 MG/DL (0.60-1.30)
[2018-01-15] MEDS ORDERED: MIDAZOLAM HCL 5 MG/ML VIAL (1 ML) ONE ×2 (07:48→07:49)
[2018-01-15] MEDS: METOPROLOL TARTRATE 25 MG TAB PO SCH ×2 (10:40→22:52)
[2018-01-15] MEDS: FAMOTIDINE 20 MG TAB PO SCH ×2 (10:40→22:52)
[2018-01-15] MEDS: guaiFENesin E.R. 600 MG TAB PO SCH ×2 (10:40→22:52)
[2018-01-15] MEDS: SODIUM CHLORIDE 0.9% FLUSH 10 ML FLUSH IV FLUSH SCH ×2 (10:41→22:52)
[2018-01-15] MEDS: ASPIRIN 81 MG CHEW TAB CHEW SCH (10:41)
[2018-01-15] MEDS: DOCUSATE SODIUM 50 MG/SENNA 8.6 MG TAB PO SCH ×2 (10:41→21:00)
[2018-01-15] MEDS: ACETAMINOPHEN 325 MG TAB PO PRN (10:41)
[2018-01-15] MEDS: HEPARIN SODIUM - SQ 10,000 UNITS/ML VIAL SQ SCH ×2 (10:42→22:52)
[2018-01-15] MEDS: CHLORHEXIDINE 0.12% (ORAL KIT) 15 ML CUP MT SCH ×2 (10:43→22:53)
--- NOTE | 2018-01-15 14:04 | HHI.PR ---
Subjective Remarks intubated on mechanical ventilator. on cp[ap Objective Vital Signs Date Time Temp Pulse Resp B/P (MAP) Pulse Ox O2 Delivery O2 Flow Rate FiO2 01/15/18 13:03 96 40 01/15/18 10:00 76 01/15/18 09:37 94 40 01/15/18 09:37 40 01/15/18 09:37 40 01/15/18 08:14 98 40 01/15/18 08:00 40 01/15/18 08:00 71 01/15/18 08:00 100.4 76 16 117/56 (76) 95 01/15/18 06:00 73 01/15/18 04:52 96 40 01/15/18 04:00 40 01/15/18 04:00 80 01/15/18 04:00 99.4 80 16 135/74 (94) 98 01/15/18 02:00 71 01/15/18 00:04 95 40 01/15/18 00:00 40 01/15/18 00:00 68 01/15/18 00:00 99.3 68 16 117/64 (81) 93 01/14/18 22:00 67 01/14/18 21:01 98 40 01/14/18 20:00 40 01/14/18 20:00 98.2 66 16 116/61 (79) 96 01/14/18 20:00 66 01/14/18 18:00 68 01/14/18 17:00 70 16 112/61 (78) 95 01/14/18 16:30 73 16 127/65 (85) 95 01/14/18 16:00 99.6 70 16 117/55 (75) 93 01/14/18 16:00 40 01/14/18 16:00 70 01/14/18 15:54 94 40 01/14/18 15:00 77 16 137/79 (98) 96 01/14/18 14:30 78 21 152/75 (100) 100 I/O 01/14/18 01/14/18 01/14/18 01/15/18 01/15/18 01/15/18 07:00 15:00 23:00 07:00 15:00 23:00 Intake Total 874 ml 161 ml 1267.2 ml 1040 ml Output Total 300 ml 1600 ml 275 ml Balance 574 ml 161 ml -332.8 ml 765 ml IV Total 289 ml 161 ml 342.2 ml 450 ml Tube Feeding 525 ml 462 ml 540 ml Tube Irrigant 463 ml Other 60 ml 50 ml Output Urine Total 300 ml 1600 ml 275 ml Bladder Scan Volume Amount 258 ml # Bowel Movements 0 0 0 Result Diagram: 01/15/1839901/15/18399 Objective Remarks Physical exam: General appearance: Intubated Head and neck examination: ET tube Neck: [supple trachea midline] Lungs: Mild basilar crackles Heart: [normal S1-S2] Abdomen: [soft nontender positive bowel sounds] Extremities: [no significant edema no cyanosis] Neurological examination: awake moves extremities follows simple commands Skin: [no rashes seen] Assessment and Plan Assessment and Plan Acute ventilator dependent respiratory failure Severe pneumonia Hemoptysis better weaning per community relations advisor finish course of abx per Id ercs will need f/u ct chest in 3-4 weeks outpatient I will sign off call me if needed Vasiliy Rojas MD Jan 15, 2018 14:04
--- NOTE | 2018-01-15 16:41 | HHI.IDPN ---
Subjective Subjective Remarks remains on vent + low grade fever Antibiotics CFTX azithro: completed y Allergies: Coded Allergies: No Known Allergies (Verified Allergy, Unknown, 01/07/18) Objective . Vital Signs Date Time Temp Pulse Resp B/P (MAP) Pulse Ox O2 Delivery O2 Flow Rate FiO2 01/15/18 16:21 93 40 01/15/18 13:03 96 40 01/15/18 10:00 76 01/15/18 09:37 94 40 01/15/18 09:37 40 01/15/18 09:37 40 01/15/18 08:14 98 40 01/15/18 08:00 40 01/15/18 08:00 71 01/15/18 08:00 100.4 76 16 117/56 (76) 95 01/15/18 06:00 73 01/15/18 04:52 96 40 01/15/18 04:00 40 01/15/18 04:00 80 01/15/18 04:00 99.4 80 16 135/74 (94) 98 01/15/18 02:00 71 01/15/18 00:04 95 40 01/15/18 00:00 40 01/15/18 00:00 68 01/15/18 00:00 99.3 68 16 117/64 (81) 93 01/14/18 22:00 67 01/14/18 21:01 98 40 01/14/18 20:00 40 01/14/18 20:00 98.2 66 16 116/61 (79) 96 01/14/18 20:00 66 01/14/18 18:00 68 01/14/18 17:00 70 16 112/61 (78) 95 . Laboratory Tests Test 01/14/18 05:05 01/15/18 04:00 White Blood Count 8.3 TH/MM3 9.3 TH/MM3 Red Blood Count 3.61 MIL/MM3 3.84 MIL/MM3 Hemoglobin 11.2 GM/DL 11.9 GM/DL Hematocrit 34.4 % 36.6 % Mean Corpuscular Volume 95.2 FL 95.2 FL Mean Corpuscular Hemoglobin 31.1 PG 30.9 PG Mean Corpuscular Hemoglobin Concent 32.7 % 32.5 % Red Cell Distribution Width 14.7 % 14.3 % Platelet Count 347 TH/MM3 365 TH/MM3 Mean Platelet Volume 9.5 FL 9.4 FL Laboratory Tests Test 01/14/18 05:05 01/15/18 04:00 Blood Urea Nitrogen 28 MG/DL 30 MG/DL Creatinine 1.05 MG/DL 1.16 MG/DL Random Glucose 106 MG/DL 84 MG/DL Calcium Level 8.8 MG/DL 8.8 MG/DL Sodium Level 146 MEQ/L 146 MEQ/L Potassium Level 4.4 MEQ/L 4.5 MEQ/L Chloride Level 109 MEQ/L 108 MEQ/L Carbon Dioxide Level 26.3 MEQ/L 30.8 MEQ/L Anion Gap 11 MEQ/L 7 MEQ/L Estimat Glomerular Filtration Rate 71 ML/MIN 63 ML/MIN Imaging Last Impressions Chest X-Ray 01/15/18 0600 Signed Impressions: CONCLUSION: Slight worsening bilateral airspace disease Head CT 01/14/18 0000 Signed Impressions: CONCLUSION: 1. Negative for acute process. Renal Ultrasound 01/08/18 0000 Signed Impressions: CONCLUSION: 1. Atrophic left kidney. Right kidney unremarkable. No hydronephrosis. Lower Extremity Ultrasound 01/08/18 0000 Signed Impressions: CONCLUSION: 1. Negative for deep venous thrombosis bilateral lower extremities. Chest CT 01/07/18 0000 Addendum Impressions: CONCLUSION: 1. There is airspace consolidation in bilateral upper lobes highly suspicious for pneumonia. 2. Small bilateral pleural effusions. 3. 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 4. Superior endplate depression and compression of one of the upper lumbar stevan tebrae not adequately characterized probably chronic. Physical Exam CONSTITUTIONAL/GENERAL: This is an adequately nourished patient, in no apparent distress. TUBES/LINES/DRAINS: SKIN: No jaundice, rashes, or lesions. Skin temperature appropriate. Not diaphoretic. CARDIOVASCULAR: Regular rate and rhythm without murmurs, gallops, or rubs. No JVD. Peripheral pulses symmetric. RESPIRATORY/CHEST: Symmetric, unlabored respirations. Diffuse b/l rhonchi. Breath sounds equal bilaterally. GASTROINTESTINAL: Abdomen soft, non-tender, nondistended. No hepato-splenomegaly , or palpable masses. No guarding. Bowel sounds present. GENITOURINARY: Without palpable bladder distension. Yao catheter in place. with clear yellow urine MUSCULOSKELETAL: Extremities without clubbing, cyanosis, or edema. NEUROLOGICAL:sedated. Unresponsive PSYCHIATRIC: unable to assess Assessment & Plan Remarks Severe B/l PNA - hemoptysis - Gstain of sputum is neg for org's failure to wean Acute hypoxic resp failure Multiple med problems MTB negative cont current abx fu cultures,including AFB change CFTX to zosyn repeat CXR rechk sputum Humera Goetz MD Jan 15, 2018 16:40
[2018-01-15] MEDS ORDERED: FUROSEMIDE 40 MG/4 ML VIAL IV PUSH ONE (17:15)
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
[2018-01-15] MEDS: PIPERACIL-TAZO 4.5 GM PREMIX 100 ML IV SCH (17:43)
[2018-01-15] MEDS ORDERED: SUCCINYLCHOLINE CHLORIDE 200 MG/10 ML VIAL ONE (17:56)
--- NOTE | 2018-01-15 18:13 | PD.PROCEDR ---
Procedure Note Procedure Endotracheal Intubation Diagnosis: Acute hypoxic respiratory failure Indications: Acute hypoxic respiratory failure with he mechanically unstable supraventricular tachycardia Consent: Emergent Anesthesia: Propofol 200 mg IV, succinylcholine 120 mg IV Description of the Procedure: The patient was positioned in the sniffing position. Pre-oxygenation was performed using a [id number]. Anesthesia was induced via rapid sequence. A Bryan #2 was used for laryngoscopy and a Grade I view was obtained. A 8.5 cuffed endotracheal tube was inserted atraumatically through the vocal cords. Confirmation of correct endotracheal tube placement was made by equal and bilateral breath sounds and colorimetric CO2 detection. The endotracheal tube was secured at 23 cm at the teeth. There were no immediate complications noted. A chest x-ray has been ordered. I personally performed the procedure. Zelalem Davis MD Jan 15, 2018 18:13
[2018-01-15] MEDS ORDERED: FUROSEMIDE 100 MG/10 ML VIAL IV PUSH STA (18:34)
[2018-01-15] MEDS ORDERED: CHLOROTHIAZIDE SOD 500 MG VIAL IV STA (18:34)
--- NOTE | 2018-01-15 19:10 | RADRPT ---
EXAM DATE: 01/15/2018 6:41 PM EDT AGE/SEX: 67 years / Male INDICATIONS: Post intubation. CLINICAL DATA: This is the patient's subsequent encounter. Patient reports that signs and symptoms h ave been present for 1 week and indicates a pain score of Nonresponsive. MEDICAL/SURGICAL HISTORY: Stroke. CABG. COMPARISON: [facility] – [place], CHEST SINGLE AP, 01/15/2018. . FINDINGS: Endotracheal tube in good position. Previous sternotomy. Bilateral airspace consolidation, right grea ter than left. No significant effusion. No pneumothorax. CONCLUSION: Bilateral airspace consolidation, right greater than left. Endotracheal tube in good position. Electronically signed by: Aurelio Camp MD 01/15/2018 7:09 PM EDT
[2018-01-15 19:55] LABS: AUTOMATED NEUTROPHIL # 14.4 TH/MM3 (1.8-7.7); BASOPHIL # 0.1 TH/MM3 (0-0.2); BASOPHIL % 0.6 % (0.0-2.0); EOSINOPHIL # 0.5 TH/MM3 (0-0.4); EOSINOPHIL % 2.9 % (0.0-4.0); HEMATOCRIT 37.5 % (39.0-51.0); HEMOGLOBIN 12.3 GM/DL (13.0-17.0); LYMPH % 8.3 % (9.0-44.0); LYMPHOCYTE # 1.5 TH/MM3 (1.0-4.8); MEAN CELL VOLUME 93.4 FL (80.0-100.0); MEAN CORPUSCULAR HEMOGLOBIN 30.6 PG (27.0-34.0); MEAN CORPUSCULAR HGB CONC 32.7 % (32.0-36.0); MEAN PLATELET VOLUME 9.5 FL (7.0-11.0); MONO % 7.1 % (0.0-8.0); MONOCYTE # 1.3 TH/MM3 (0-0.9); NEUT % 81.1 % (16.0-70.0); PLATELET COUNT 458 TH/MM3 (150-450); RED BLOOD COUNT 4.01 MIL/MM3 (4.50-5.90); RED CELL DISTRIBUTION WIDTH 14.3 % (11.6-17.2); WHITE BLOOD COUNT 17.7 TH/MM3 (4.0-11.0)
[2018-01-16] VITALS (20 sets, daily range): BP systolic 88–116; BP diastolic 56–84; PULSE 70–138; RESP 17–22; TEMP 97.7–98.7; O2SAT 98–100
[2018-01-16] MEDS ORDERED: SODIUM CHLOR 0.9% 1000 ML INJ 1,000 ML IV ONE (01:15)
[2018-01-16] MEDS: PROPOFOL 1000 MG/100 ML INJ 100 ML IV PRN ×5 (02:39→23:24)
[2018-01-16] MEDS: RESP: ALBUTEROL 2.5 MG/IPRATROPIUM 0.5 MG NEB (SCH) NEB ×6 (04:20→23:53)
--- NOTE | 2018-01-16 04:48 | RADRPT ---
EXAM DATE: 01/16/2018 4:06 AM EDT AGE/SEX: 67 years / Male INDICATIONS: Shortness of breath, possible pulmonary disease. CLINICAL DATA: This is the patient's subsequent encounter. Patient reports that signs and symptoms h ave been present for 1 week and indicates a pain score of Nonresponsive. MEDICAL/SURGICAL HISTORY: Stroke. CABG. [place]PAR[place] [facility] [place], [place]. . FINDINGS: A single AP view of the chest demonstrates minimal residual airspace disease right upper lobe. Left l renata clear. Heart normal in size. Previous CABG. Endotracheal tube unchanged. Nasogastric tube with ti p in stomach. Clips are seen overlying left scapula. Osseous structures are intact. CONCLUSION: Significant improvement with minimal residual airspace disease in the right upper lobe. Electronically signed by: Jaden Winter MD 01/16/2018 4:47 AM EDT
[2018-01-16] MEDS: PIPERACIL-TAZO 4.5 GM PREMIX 100 ML IV SCH ×5 (05:17→23:17)
[2018-01-16] MEDS: INSULIN ASPART SUPPLEMENTAL SCALE SQ SCH ×5 (06:00→23:32)
[2018-01-16 06:30] LABS: HEMATOCRIT 33.9 % (39.0-51.0); HEMOGLOBIN 11.7 GM/DL (13.0-17.0); MEAN CELL VOLUME 93.2 FL (80.0-100.0); MEAN CORPUSCULAR HEMOGLOBIN 32.1 PG (27.0-34.0); MEAN CORPUSCULAR HGB CONC 34.4 % (32.0-36.0); PLATELET COUNT 413 TH/MM3 (150-450); RED BLOOD COUNT 3.64 MIL/MM3 (4.50-5.90); RED CELL DISTRIBUTION WIDTH 14.5 % (11.6-17.2); WHITE BLOOD COUNT 11.3 TH/MM3 (4.0-11.0)
[2018-01-16 06:47] LABS: BICARBONATE 24.9 MEQ/L (21.0-32.0); CALCIUM 8.4 MG/DL (8.5-10.1); CREATININE 1.71 MG/DL (0.60-1.30)
[2018-01-16] MEDS ORDERED: DIGOXIN 0.5 MG/2 ML VIAL IV PUSH ONE (07:00)
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
[2018-01-16] MEDS ORDERED: POTASSIUM CHLOR 40 MEQ PREMIX 100 ML IV ONE (07:30)
[2018-01-16] MEDS ORDERED: FUROSEMIDE 100 MG/10 ML VIAL IV PUSH ONE (07:30)
[2018-01-16] MEDS: FREE WATER G-TUBE SCH ×5 (08:00→23:33)
[2018-01-16] MEDS: MAGNESIUM SULFATE 1 GM PREMIX 100 ML IV SCH ×2 (08:07→09:31)
[2018-01-16] MEDS: FAMOTIDINE 20 MG TAB PO SCH ×2 (08:58→20:45)
[2018-01-16] MEDS: METOLAZONE 5 MG TAB PO SCH ×2 (08:58→20:46)
[2018-01-16] MEDS: CHLORHEXIDINE 0.12% (ORAL KIT) 15 ML CUP MT SCH ×2 (08:59→20:45)
[2018-01-16] MEDS: ASPIRIN 81 MG CHEW TAB CHEW SCH (08:59)
[2018-01-16] MEDS: guaiFENesin E.R. 600 MG TAB PO SCH ×2 (09:00→20:46)
[2018-01-16] MEDS: SODIUM CHLORIDE 0.9% FLUSH 10 ML FLUSH IV FLUSH SCH ×2 (09:01→20:46)
[2018-01-16] MEDS: METOPROLOL TARTRATE 25 MG TAB PO SCH ×2 (09:02→20:46)
[2018-01-16] MEDS: HEPARIN SODIUM - SQ 10,000 UNITS/ML VIAL SQ SCH ×2 (09:09→20:46)
[2018-01-16] MEDS: ALBUMIN 25% INJ 100 ML IV SCH ×3 (09:29→23:17)
[2018-01-16] MEDS: DOCUSATE SODIUM 50 MG/SENNA 8.6 MG TAB PO SCH ×2 (09:44→20:46)
[2018-01-16] MEDS: FUROSEMIDE INJ 100 MG in SODIUM CHLORIDE 0.9% INJ 90 ML IV SCH ×3 (11:44→22:23)
[2018-01-16 17:53] LABS: BICARBONATE 29.5 MEQ/L (21.0-32.0); CALCIUM 8.9 MG/DL (8.5-10.1); CREATININE 1.86 MG/DL (0.60-1.30); MAGNESIUM 3.4 MG/DL (1.5-2.5); PHOSPHORUS 6.8 MG/DL (2.5-4.9)
[2018-01-16 19:31] LABS: BILIRUBIN, URINE NEG (NEG); BLOOD, URINE NEG (NEG); GLUCOSE,URINE NEG (NEG); KETONE, URINE NEG (NEG); MUCUS URINE FEW /lpf (OCC); NITRITE,URINE NEG (NEG); SQUAMOUS EPITHELIAL CELL URINE <1 /hpf (0-5); URINE COLOR Straw (YELLW/STRAW); URINE LEUKOCYTE ESTERASE NEG (NEG)
[2018-01-17] VITALS (21 sets, daily range): BP systolic 132–160; BP diastolic 70–85; PULSE 75–105; RESP 17–24; TEMP 98.4–99.9; O2SAT 99–100
[2018-01-17] MEDS: FUROSEMIDE INJ 100 MG in SODIUM CHLORIDE 0.9% INJ 90 ML IV SCH (03:17)
[2018-01-17] MEDS: FREE WATER G-TUBE SCH ×2 (03:17→07:50)
[2018-01-17] MEDS: RESP: ALBUTEROL 2.5 MG/IPRATROPIUM 0.5 MG NEB (SCH) NEB ×6 (03:27→23:36)
[2018-01-17] MEDS: PROPOFOL 1000 MG/100 ML INJ 100 ML IV PRN ×4 (05:31→20:35)
[2018-01-17] MEDS: INSULIN ASPART SUPPLEMENTAL SCALE SQ SCH ×3 (06:00→18:00)
[2018-01-17] MEDS: ALBUMIN 25% INJ 100 ML IV SCH (06:03)
[2018-01-17] MEDS: PIPERACIL-TAZO 4.5 GM PREMIX 100 ML IV SCH (06:03)
[2018-01-17 07:32] LABS: HEMATOCRIT 34.8 % (39.0-51.0); HEMOGLOBIN 11.5 GM/DL (13.0-17.0); MEAN CELL VOLUME 93.2 FL (80.0-100.0); MEAN CORPUSCULAR HEMOGLOBIN 30.9 PG (27.0-34.0); MEAN CORPUSCULAR HGB CONC 33.2 % (32.0-36.0); MEAN PLATELET VOLUME 8.9 FL (7.0-11.0); PLATELET COUNT 476 TH/MM3 (150-450); RED BLOOD COUNT 3.73 MIL/MM3 (4.50-5.90); RED CELL DISTRIBUTION WIDTH 14.3 % (11.6-17.2); WHITE BLOOD COUNT 11.6 TH/MM3 (4.0-11.0)
[2018-01-17] MEDS: DOCUSATE SODIUM 50 MG/SENNA 8.6 MG TAB PO SCH ×2 (07:32→20:36)
[2018-01-17] MEDS: FAMOTIDINE 20 MG TAB PO SCH ×2 (07:50→20:36)
[2018-01-17] MEDS: METOLAZONE 5 MG TAB PO SCH (07:51)
[2018-01-17] MEDS: ASPIRIN 81 MG CHEW TAB CHEW SCH (07:51)
[2018-01-17] MEDS: METOPROLOL TARTRATE 25 MG TAB PO SCH ×2 (07:51→20:36)
[2018-01-17] MEDS: HEPARIN SODIUM - SQ 10,000 UNITS/ML VIAL SQ SCH ×2 (07:51→20:36)
[2018-01-17] MEDS: SODIUM CHLORIDE 0.9% FLUSH 10 ML FLUSH IV FLUSH SCH ×2 (07:52→20:36)
[2018-01-17] MEDS: guaiFENesin E.R. 600 MG TAB PO SCH (07:52)
[2018-01-17 07:56] LABS: BICARBONATE 28.1 MEQ/L (21.0-32.0); CALCIUM 9.2 MG/DL (8.5-10.1); CREATININE 2.19 MG/DL (0.60-1.30)
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
--- NOTE | 2018-01-17 08:43 | RADRPT ---
EXAM DATE: 01/17/2018 8:34 AM EDT AGE/SEX: 67 years / Male INDICATIONS: Respiratory distress. CLINICAL DATA: This is the patient's subsequent encounter. Patient reports that signs and symptoms h ave been present for 2 weeks and indicates a pain score of Nonresponsive. MEDICAL/SURGICAL HISTORY: . Stroke. CABG. COMPARISON: [facility] [place]ST [place], 01/16/2018. . FINDINGS: Stable ETT, NGT coursing beyond the GE junction. Moderately improved airspace disease in the right up per lobe. Cardiomegaly some contours are stable. Remainder of the exam is unchanged. CONCLUSION: 1. Moderately improved right upper lobe airspace disease. Electronically signed by: Laurent Sanchez MD 01/17/2018 8:41 AM EDT
[2018-01-17] MEDS: SODIUM CHLOR 0.9% 1000 ML INJ 1,000 ML IV SCH (09:56)
[2018-01-17] MEDS: CHLORHEXIDINE 0.12% (ORAL KIT) 15 ML CUP MT SCH ×2 (09:57→20:00)
[2018-01-17] MEDS: ACETAMINOPHEN 325 MG TAB PO PRN (10:10)
--- NOTE | 2018-01-17 10:26 | PD.CARD.PN ---
Subjective Subjective Remarks Telemetry sinus rhythm in the 80s Still having trouble with oxygenation Mucus no longer bloody Extubated over the weekend, but reintubated within 30 mins Objective Medications Current Medications Medications (Trade) Dose Ordered Sig/Herber Route Start Time Stop Time Status Last Admin (NS Flush) 2 ml BID IV FLUSH 01/07/18 21:00 01/17/18 07:52 (NS Flush) 2 ml UNSCH PRN IV FLUSH 01/07/18 13:00 01/11/18 07:40 (Apresoline) 10 mg Q45M PRN PO 01/07/18 15:00 (Aspirin Chew) 81 mg DAILY CHEW 01/08/18 09:00 01/17/18 07:51 (Mucinex Er) 600 mg BID PO 01/08/18 11:15 01/16/18 20:46 (Tylenol) 650 mg Q4H PRN PO 01/08/18 11:30 01/17/18 10:10 (Zofran Odt) 4 mg Q6H PRN PO 01/08/18 12:15 (Reglan Inj) 5 mg Q6H PRN IV PUSH 01/08/18 11:30 (Tylenol) 650 mg Q6H PRN PO 01/08/18 11:30 (Percocet 5-325 Mg) 1 tab Q6H PRN PO 01/08/18 11:30 (Percocet 10-325 Mg) 1 tab Q6H PRN PO 01/08/18 11:30 01/08/18 12:22 (Morphine Inj) 2 mg Q3H PRN IV PUSH 01/08/18 12:15 (Morphine Inj) 4 mg Q3H PRN IV PUSH 01/08/18 12:15 (Narcan Inj) 0.4 mg UNSCH PRN IV PUSH 01/08/18 11:30 (Lashay-Colace) 1 tab BID PO 01/08/18 21:00 01/16/18 20:46 (Milk Of Magnesia Liq) 30 ml Q12H PRN PO 01/08/18 11:30 (Senokot) 17.2 mg Q12H PRN PO 01/08/18 11:30 (Dulcolax Supp) 10 mg DAILY PRN RECTAL 01/08/18 11:30 (Lactulose Liq) 30 ml DAILY PRN PO 01/08/18 11:30 (Robitussin Ac 200-20 Mg/10 ml Liq) 5 ml Q6H PRN PO 01/08/18 14:00 (Albuterol Neb) 2.5 mg Q2HR NEB PRN NEB 01/08/18 17:30 (Peridex 0.12% Liq) 15 ml BID@08,20 MT 01/09/18 08:00 01/17/18 09:57 (D50w (Vial) Inj) 50 ml UNSCH PRN IV PUSH 01/09/18 12:45 (Glucagon Inj) 1 mg UNSCH PRN OTHER 01/09/18 12:45 (NovoLOG SUPPLEMENTAL SCALE) 1 Q6HR SQ 01/09/18 12:45 01/17/18 06:00 (Heparin Inj) 5,000 units Q12HR SQ 01/09/18 21:00 01/17/18 07:51 (Pill Splitter) 1 ea UNSCH PRN OTHER 01/09/18 16:15 (Lopressor) 12.5 mg Q12HR PO 01/09/18 16:15 01/17/18 07:51 Potassium Chloride 100 ml @ 50 mls/hr Q2H PRN IV 01/10/18 10:45 Potassium Chloride 100 ml @ 50 mls/hr Q2H PRN IV 01/10/18 10:45 01/10/18 17:47 (K-Lyte Cl Eff) 50 meq UNSCH PRN PO 01/10/18 10:45 Potassium Chloride 100 ml @ 25 mls/hr UNSCH PRN IV 01/10/18 10:45 Potassium Chloride 100 ml @ 50 mls/hr Q2H PRN IV 01/10/18 10:45 Magnesium Sulfate 4 gm/Sodium Chloride 100 ml @ 50 mls/hr UNSCH PRN IV 01/10/18 10:45 (Mag-Ox) 800 mg UNSCH PRN PO 01/10/18 10:45 Magnesium Sulfate 2 gm/Sodium Chloride 100 ml @ 50 mls/hr UNSCH PRN IV 01/10/18 10:45 (K-Phos) 2,000 mg Q4H PRN PO 01/10/18 10:45 Sodium Phosphate 30 mmol/Sodium Chloride 250 ml @ 42 mls/hr UNSCH PRN IV 01/10/18 10:45 (K-Phos) 2,000 mg UNSCH PRN PO/TUBE 01/10/18 10:45 Potassium Phosphate 30 mmol/ Sodium Chloride 260 ml @ 42 mls/hr UNSCH PRN IV 01/10/18 10:45 (Pepcid) 20 mg BID PO 01/15/18 21:00 01/17/18 07:50 Propofol 100 ml @ 1.92 mls/hr TITRATE PRN IV 01/15/18 18:15 01/17/18 10:05 (Duoneb Neb) 1 ampule Q4HR NEB NEB 01/16/18 08:00 01/17/18 07:29 Sodium Chloride 1,000 ml @ 42 mls/hr [id number] IV 01/17/18 08:00 01/17/18 09:56 Piperacillin Sod/ Tazobactam Sod 50 ml @ 100 mls/hr Q6H IV 01/17/18 12:00 Vital Signs / I&O Vital Signs Date Time Temp Pulse Resp B/P (MAP) Pulse Ox O2 Delivery O2 Flow Rate FiO2 01/17/18 10:00 78 22 132/72 (92) 100 01/17/18 09:00 80 22 152/70 (97) 100 01/17/18 08:00 99.9 104 22 160/74 (102) 100 01/17/18 08:00 40 01/17/18 08:00 104 01/17/18 07:29 100 40 01/17/18 06:00 84 01/17/18 04:49 100 50 01/17/18 04:00 50 01/17/18 04:00 91 01/17/18 04:00 99.0 91 24 145/85 (105) 100 01/17/18 02:03 100 50 01/17/18 02:00 105 01/17/18 00:00 79 01/17/18 00:00 98.5 79 17 135/84 (101) 100 01/17/18 00:00 50 01/16/18 23:52 100 50 01/16/18 22:00 103 01/16/18 20:37 100 50 01/16/18 20:00 98.7 111 17 116/84 (95) 100 01/16/18 20:00 50 01/16/18 20:00 111 01/16/18 19:49 100 Ventilator 50 01/16/18 18:00 101 01/16/18 17:37 100 50 01/16/18 16:00 50 01/16/18 16:00 75 01/16/18 16:00 98.1 75 20 111/69 (83) 100 01/16/18 14:50 100 50 01/16/18 14:00 83 01/16/18 12:00 50 01/16/18 12:00 98.0 138 21 93/56 (68) 100 01/16/18 12:00 74 I/O 01/16/18 01/16/18 01/16/18 01/17/18 01/17/18 01/17/18 07:00 15:00 23:00 07:00 15:00 23:00 Intake Total 1467 ml 400 ml 1650 ml 1541 ml 170 ml Output Total 1925 ml 3500 ml 1825 ml Balance -458 ml 400 ml -1850 ml -284 ml 170 ml IV Total 1400 ml 400 ml 500 ml 700 ml 170 ml Tube Feeding 67 ml 250 ml 241 ml Other 900 ml 600 ml Output Urine Total 1925 ml 3500 ml 1825 ml Bladder Scan Volume Amount 611 ml # Bowel Movements 1 1 Physical Exam GENERAL: Intubated and sedated SKIN: Warm and dry. HEAD: Atraumatic. Normocephalic. EYES: Pupils equal and round. No scleral icterus. No injection or drainage. ENT: No nasal bleeding or discharge. Mucous membranes pink and moist. NECK: Trachea midline. No JVD. CARDIOVASCULAR: Regular rate and rhythm. RESPIRATORY: No accessory muscle use. Decreased breath sounds with scattered rhonchi GASTROINTESTINAL: Abdomen soft, non-tender, nondistended. Hepatic and splenic margins not palpable. MUSCULOSKELETAL: Extremities without clubbing, cyanosis, or edema. No obvious deformities. NEUROLOGICAL: Intubated and sedated Laboratory Laboratory Tests Test 01/16/18 16:05 01/16/18 17:20 01/17/18 05:37 01/17/18 09:20 Blood Urea Nitrogen 27 MG/DL 47 MG/DL Creatinine 1.86 MG/DL 2.19 MG/DL Random Glucose 129 MG/DL 142 MG/DL Calcium Level 8.9 MG/DL 9.2 MG/DL Phosphorus Level 6.8 MG/DL Magnesium Level 3.4 MG/DL Sodium Level 142 MEQ/L 141 MEQ/L Potassium Level 4.1 MEQ/L 3.0 MEQ/L Chloride Level 101 MEQ/L 95 MEQ/L Carbon Dioxide Level 29.5 MEQ/L 28.1 MEQ/L Anion Gap 12 MEQ/L 18 MEQ/L Estimat Glomerular Filtration Rate 37 ML/MIN 30 ML/MIN Urine Color Straw Urine Turbidity CLEAR Urine pH 6.0 Urine Specific [place] 1.008 Urine Protein NEG mg/dL Urine Glucose (UA) NEG mg/dL Urine Ketones NEG mg/dL Urine Occult Blood NEG Urine Nitrite NEG Urine Bilirubin NEG Urine Urobilinogen LESS THAN 2 mg/dL Urine Leukocyte Esterase NEG Urine RBC 1 /hpf Urine WBC LESS THAN 1 /hpf Urine Squamous Epithelial Cells <1 /hpf Urine Mucus FEW /lpf Microscopic Urinalysis Comment CATH-CULT NOT IND White Blood Count 11.6 TH/MM3 Red Blood Count 3.73 MIL/MM3 Hemoglobin 11.5 GM/DL Hematocrit 34.8 % Mean Corpuscular Volume 93.2 FL Mean Corpuscular Hemoglobin 30.9 PG Mean Corpuscular Hemoglobin Concent 33.2 % Red Cell Distribution Width 14.3 % Platelet Count 476 TH/MM3 Mean Platelet Volume 8.9 FL Blood Gas Puncture Site RT RADIAL Blood Gas Patient Temperature 98.6 Blood Gas HCO3 33 mmol/L Blood Gas Base Excess 9.1 mmol/L Blood Gas Oxygen Saturation 96 % Arterial Blood pH 7.52 Arterial Blood Partial Pressure CO2 40 mmHg Arterial Blood Partial Pressure O2 162 mmHg Arterial Blood Oxygen Content 15.6 Vol % Arterial Blood Carboxyhemoglobin 0.5 % Arterial Blood Methemoglobin 2.1 % Blood Gas Hemoglobin 11.4 G/DL Oxygen Delivery Device VENTILATOR Blood Gas Ventilator Setting [facility]/AC500/16/10PEEP Blood Gas Inspired Oxygen 40 % Imaging Last 24 hours Impressions Chest X-Ray 01/17/18 0000 Signed Impressions: CONCLUSION: 1. Moderately improved right upper lobe airspace disease. Assessment and Plan Problem List: (1) Bilateral pneumonia ICD Codes: J18.9 - Pneumonia, unspecified organism Status: Acute (2) Hypoxia ICD Codes: R09.02 - Hypoxemia Status: Acute (3) Tachyarrhythmia ICD Codes: R00.0 - Tachycardia, unspecified Status: Acute (4) Paroxysmal atrial flutter ICD Codes: I48.92 - Unspecified atrial flutter Status: Acute Assessment and Plan 1) SOB secondary to PNA Bloody mucus, TB ruled out s/p intubation for respiratory failure 2) Aflutter with RVR, now in sinus rhythm Most likely potentiated by his underlying illness Not an anti-coagulation candidate at this time due to hemoptysis 3) EF 30-35% 4) 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 Lamar Echo technically difficult, does not appear like a replacement of aortic valve 5) Abdominal aortic aneurysm Follow up with Dr. 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
[2018-01-17] MEDS: POTASSIUM CHLOR 20 MEQ PREMIX 100 ML IV PRN (11:46)
[2018-01-17] MEDS ORDERED: PIPERACIL-TAZO 2.25 GM PREMIX 50 ML IV SCH (12:00)
[2018-01-17] MEDS: POTASSIUM CHLOR 20 MEQ PREMIX 100 ML IV SCH ×2 (12:15→13:56)
[2018-01-17] MEDS ORDERED: DILTIAZEM HCL 25 MG/5 ML VIAL IV ONE (15:30)
[2018-01-17] MEDS ORDERED: EPINEPHrine HCL (1:10,000) 1 MG/10 ML SYRINGE ONE (16:29)
[2018-01-17] MEDS ORDERED: EPINEPHrine HCL (1:1000) 1 MG/ML VIAL ONE (16:29)
[2018-01-17] MEDS ORDERED: SODIUM BICARBONATE 8.4% INJ 50 MEQ/50 ML SYR ONE (16:30)
--- NOTE | 2018-01-17 20:31 | HHI.IDPN ---
Subjective Subjective Remarks Extubated over the weekend, but reintubated within 30 mins low grade fever up to 99.9 creatinine up to 2.19 Antibiotics zosyn Allergies: Coded Allergies: No Known Allergies (Verified Allergy, Unknown, 01/07/18) Objective . Vital Signs Date Time Temp Pulse Resp B/P (MAP) Pulse Ox O2 Delivery O2 Flow Rate FiO2 01/17/18 19:59 100 35 01/17/18 18:00 75 01/17/18 18:00 98.6 75 18 142/77 (98) 100 01/17/18 16:00 78 01/17/18 16:00 40 01/17/18 15:03 99 40 01/17/18 14:00 102 01/17/18 12:15 98.4 75 21 138/78 (98) 100 01/17/18 12:00 40 01/17/18 12:00 96 19 143/75 (97) 100 01/17/18 12:00 96 01/17/18 11:11 100 40 01/17/18 10:00 78 22 132/72 (92) 100 01/17/18 10:00 78 01/17/18 09:00 80 22 152/70 (97) 100 01/17/18 08:00 99.9 104 22 160/74 (102) 100 01/17/18 08:00 40 01/17/18 08:00 104 01/17/18 07:29 100 40 01/17/18 06:00 84 01/17/18 04:49 100 50 01/17/18 04:00 50 01/17/18 04:00 91 01/17/18 04:00 99.0 91 24 145/85 (105) 100 01/17/18 02:03 100 50 01/17/18 02:00 105 01/17/18 00:00 79 01/17/18 00:00 98.5 79 17 135/84 (101) 100 01/17/18 00:00 50 01/16/18 23:52 100 50 01/16/18 22:00 103 01/16/18 20:37 100 50 01/17/18 01/17/18 01/18/18 15:00 23:00 07:00 Intake Total 170 ml 1108 ml Output Total 2200 ml Balance 170 ml -1092 ml IV Total 170 ml 200 ml Tube Feeding 608 ml Tube Irrigant 300 ml Output Urine Total 2200 ml # Bowel Movements 0 . Laboratory Tests Test 01/16/18 04:21 01/17/18 05:37 White Blood Count 11.3 TH/MM3 11.6 TH/MM3 Red Blood Count 3.64 MIL/MM3 3.73 MIL/MM3 Hemoglobin 11.7 GM/DL 11.5 GM/DL Hematocrit 33.9 % 34.8 % Mean Corpuscular Volume 93.2 FL 93.2 FL Mean Corpuscular Hemoglobin 32.1 PG 30.9 PG Mean Corpuscular Hemoglobin Concent 34.4 % 33.2 % Red Cell Distribution Width 14.5 % 14.3 % Platelet Count 413 TH/MM3 476 TH/MM3 Mean Platelet Volume 9.0 FL 8.9 FL Laboratory Tests Test 01/16/18 04:21 01/16/18 16:05 01/17/18 05:37 01/17/18 18:54 Blood Urea Nitrogen 39 MG/DL 27 MG/DL 47 MG/DL Creatinine 1.71 MG/DL 1.86 MG/DL 2.19 MG/DL Random Glucose 106 MG/DL 129 MG/DL 142 MG/DL Calcium Level 8.4 MG/DL 8.9 MG/DL 9.2 MG/DL Sodium Level 146 MEQ/L 142 MEQ/L 141 MEQ/L Potassium Level 3.7 MEQ/L 4.1 MEQ/L 3.0 MEQ/L 3.0 MEQ/L Chloride Level 107 MEQ/L 101 MEQ/L 95 MEQ/L Carbon Dioxide Level 24.9 MEQ/L 29.5 MEQ/L 28.1 MEQ/L Anion Gap 14 MEQ/L 12 MEQ/L 18 MEQ/L Estimat Glomerular Filtration Rate 40 ML/MIN 37 ML/MIN 30 ML/MIN Phosphorus Level 6.8 MG/DL Magnesium Level 3.4 MG/DL Imaging Last Impressions Chest X-Ray 01/17/18 0000 Signed Impressions: CONCLUSION: 1. Moderately improved right upper lobe airspace disease. Head CT 01/14/18 0000 Signed Impressions: CONCLUSION: 1. Negative for acute process. Renal Ultrasound 01/08/18 0000 Signed Impressions: CONCLUSION: 1. Atrophic left kidney. Right kidney unremarkable. No hydronephrosis. Lower Extremity Ultrasound 01/08/18 0000 Signed Impressions: CONCLUSION: 1. Negative for deep venous thrombosis bilateral lower extremities. Chest CT 01/07/18 0000 Addendum Impressions: CONCLUSION: 1. There is airspace consolidation in bilateral upper lobes highly suspicious for pneumonia. 2. Small bilateral pleural effusions. 3. 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 4. Superior endplate depression and compression of one of the upper lumbar stevan tebrae not adequately characterized probably chronic. Physical Exam CONSTITUTIONAL/GENERAL: This is an adequately nourished patient, in no apparent distress. TUBES/LINES/DRAINS: SKIN: No jaundice, rashes, or lesions. Skin temperature appropriate. Not diaphoretic. CARDIOVASCULAR: Regular rate and rhythm without murmurs, gallops, or rubs. No JVD. Peripheral pulses symmetric. RESPIRATORY/CHEST: Symmetric, unlabored respirations. few scattered rhonchi. Breath sounds equal bilaterally. GASTROINTESTINAL: Abdomen soft, non-tender, nondistended. No hepato-splenomegaly , or palpable masses. No guarding. Bowel sounds present. GENITOURINARY: Without palpable bladder distension. Yao catheter in place. with clear yellow urine MUSCULOSKELETAL: Extremities without clubbing, cyanosis, or edema. NEUROLOGICAL:sedated. PSYCHIATRIC: unable to assess Assessment & Plan Remarks Severe B/l PNA - hemoptysis - Gstain of sputum is neg for org's failure to wean Acute vent dependent resp failure - persistent Multiple med problems MTB negative ARF chk urine eosinophils change zosyn to cefepime repeat CXR rechk sputum fu creatinine chk BNP Humera Goetz MD Jan 17, 2018 20:31
[2018-01-18] VITALS (18 sets, daily range): BP systolic 118–160; BP diastolic 61–77; PULSE 75–91; RESP 14–29; TEMP 98.8–99.3; O2SAT 96–100
[2018-01-18] MEDS ORDERED: POTASSIUM CHLOR 20 MEQ PREMIX 200 ML ONE (00:20)
[2018-01-18] MEDS: CEFEPIME INJ 2,000 MG in SODIUM CHLORIDE 0.9% INJ 100 ML IV SCH ×3 (00:36→21:14)
[2018-01-18] MEDS ORDERED: POTASSIUM CHLOR 20 MEQ PREMIX 100 ML IV SCH (01:00)
[2018-01-18] MEDS ORDERED: POTASSIUM CHLORIDE 20 MEQ PWD PACKET G-TUBE ONE (01:00)
[2018-01-18] MEDS: PROPOFOL 1000 MG/100 ML INJ 100 ML IV PRN ×2 (01:44→06:06)
[2018-01-18] MEDS: RESP: ALBUTEROL 2.5 MG/IPRATROPIUM 0.5 MG NEB (SCH) NEB ×6 (04:19→23:34)
[2018-01-18] MEDS: INSULIN ASPART SUPPLEMENTAL SCALE SQ SCH ×4 (06:00→18:00)
[2018-01-18 06:09] LABS: ALBUMIN 3.5 GM/DL (3.4-5.0); ALKALINE PHOSPHATASE 153 U/L (45-117); ALT (GPT) 64 U/L (12-78); AST (GOT) 56 U/L (15-37); BICARBONATE 28.3 MEQ/L (21.0-32.0); BLOOD UREA NITROGEN 53 MG/DL (7-18); CALCIUM 9.4 MG/DL (8.5-10.1); CHLORIDE 102 MEQ/L (98-107); CREATININE 2.18 MG/DL (0.60-1.30); GLOMERULAR FILTRATION RATE 31 ML/MIN (>89); GLUCOSE,RANDOM 108 MG/DL (74-106); MAGNESIUM 3.1 MG/DL (1.5-2.5); PHOSPHORUS 5.2 MG/DL (2.5-4.9); SODIUM (NA) 141 MEQ/L (136-145); TOTAL BILIRUBIN ADULT 0.4 MG/DL (0.2-1.0); TOTAL PROTEIN 8.4 GM/DL (6.4-8.2)
[2018-01-18] MEDS: HEPARIN SODIUM - SQ 10,000 UNITS/ML VIAL SQ SCH ×2 (07:34→21:15)
[2018-01-18] MEDS: DOCUSATE SODIUM 50 MG/SENNA 8.6 MG TAB PO SCH ×2 (07:36→21:00)
[2018-01-18] MEDS: SODIUM CHLORIDE 0.9% FLUSH 10 ML FLUSH IV FLUSH SCH ×2 (07:37→21:14)
[2018-01-18] MEDS: METOPROLOL TARTRATE 25 MG TAB PO SCH ×3 (07:37→21:14)
[2018-01-18] MEDS: ASPIRIN 81 MG CHEW TAB CHEW SCH (07:37)
[2018-01-18] MEDS: FAMOTIDINE 20 MG TAB PO SCH ×2 (07:37→21:14)
[2018-01-18] MEDS: CHLORHEXIDINE 0.12% (ORAL KIT) 15 ML CUP MT SCH ×2 (07:38→20:00)
[2018-01-18] MEDS: SODIUM CHLOR 0.9% 1000 ML INJ 1,000 ML IV SCH ×2 (07:38→21:43)
[2018-01-18 07:48] LABS: AUTOMATED NEUTROPHIL # 9.2 TH/MM3 (1.8-7.7); BASOPHIL # 0.1 TH/MM3 (0-0.2); BASOPHIL % 0.6 % (0.0-2.0); EOSINOPHIL # 0.7 TH/MM3 (0-0.4); EOSINOPHIL % 5.3 % (0.0-4.0); HEMATOCRIT 33.7 % (39.0-51.0); LYMPHOCYTE # 1.2 TH/MM3 (1.0-4.8); MEAN CELL VOLUME 92.5 FL (80.0-100.0); MEAN CORPUSCULAR HEMOGLOBIN 30.3 PG (27.0-34.0); MEAN CORPUSCULAR HGB CONC 32.8 % (32.0-36.0); MEAN PLATELET VOLUME 8.3 FL (7.0-11.0); MONO % 9.7 % (0.0-8.0); MONOCYTE # 1.2 TH/MM3 (0-0.9); NEUT % 74.4 % (16.0-70.0); PLATELET COUNT 493 TH/MM3 (150-450); RED BLOOD COUNT 3.64 MIL/MM3 (4.50-5.90); RED CELL DISTRIBUTION WIDTH 14.2 % (11.6-17.2); WHITE BLOOD COUNT 12.3 TH/MM3 (4.0-11.0)
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
--- NOTE | 2018-01-18 11:07 | PD.CARD.PN ---
Subjective Subjective Remarks Telemetry sinus rhythm in the 80s Episode of AFib with RVR for short period of time yesterday Still having trouble with oxygenation Mucus no longer bloody Extubated over the weekend, but reintubated within 30 mins Objective Medications Current Medications Medications (Trade) Dose Ordered Sig/Herber Route Start Time Stop Time Status Last Admin (NS Flush) 2 ml BID IV FLUSH 01/07/18 21:00 01/18/18 07:37 (NS Flush) 2 ml UNSCH PRN IV FLUSH 01/07/18 13:00 01/11/18 07:40 (Apresoline) 10 mg Q45M PRN PO 01/07/18 15:00 (Aspirin Chew) 81 mg DAILY CHEW 01/08/18 09:00 01/18/18 07:37 (Tylenol) 650 mg Q4H PRN PO 01/08/18 11:30 01/17/18 10:10 (Zofran Odt) 4 mg Q6H PRN PO 01/08/18 12:15 (Reglan Inj) 5 mg Q6H PRN IV PUSH 01/08/18 11:30 (Tylenol) 650 mg Q6H PRN PO 01/08/18 11:30 (Percocet 5-325 Mg) 1 tab Q6H PRN PO 01/08/18 11:30 (Percocet 10-325 Mg) 1 tab Q6H PRN PO 01/08/18 11:30 01/08/18 12:22 (Morphine Inj) 2 mg Q3H PRN IV PUSH 01/08/18 12:15 (Morphine Inj) 4 mg Q3H PRN IV PUSH 01/08/18 12:15 (Narcan Inj) 0.4 mg UNSCH PRN IV PUSH 01/08/18 11:30 (Lashay-Colace) 1 tab BID PO 01/08/18 21:00 01/18/18 07:36 (Senokot) 17.2 mg Q12H PRN PO 01/08/18 11:30 (Dulcolax Supp) 10 mg DAILY PRN RECTAL 01/08/18 11:30 (Lactulose Liq) 30 ml DAILY PRN PO 01/08/18 11:30 (Robitussin Ac 200-20 Mg/10 ml Liq) 5 ml Q6H PRN PO 01/08/18 14:00 (Albuterol Neb) 2.5 mg Q2HR NEB PRN NEB 01/08/18 17:30 (Peridex 0.12% Liq) 15 ml BID@08,20 MT 01/09/18 08:00 01/18/18 07:38 (D50w (Vial) Inj) 50 ml UNSCH PRN IV PUSH 01/09/18 12:45 (Glucagon Inj) 1 mg UNSCH PRN OTHER 01/09/18 12:45 (NovoLOG SUPPLEMENTAL SCALE) 1 Q6HR SQ 01/09/18 12:45 01/17/18 11:51 (Heparin Inj) 5,000 units Q12HR SQ 01/09/18 21:00 01/18/18 07:34 (Pill Splitter) 1 ea UNSCH PRN OTHER 01/09/18 16:15 Propofol 100 ml @ 1.92 mls/hr TITRATE PRN IV 01/15/18 18:15 01/18/18 06:06 (Duoneb Neb) 1 ampule Q4HR NEB NEB 01/16/18 08:00 01/18/18 10:58 Sodium Chloride 1,000 ml @ 75 mls/hr [id number] IV 01/17/18 08:00 01/18/18 07:38 (Pepcid) 10 mg BID PO 01/17/18 21:00 01/18/18 07:37 Cefepime HCl 2000 mg/Sodium Chloride 100 ml @ 200 mls/hr Q12H IV 01/17/18 21:00 01/18/18 07:36 (Lopressor) 25 mg Q12HR PO 01/18/18 09:00 Vital Signs / I&O Vital Signs Date Time Temp Pulse Resp B/P (MAP) Pulse Ox O2 Delivery O2 Flow Rate FiO2 01/18/18 10:58 99 35 01/18/18 08:13 99 35 01/18/18 08:00 35 01/18/18 08:00 99.0 82 18 160/77 (104) 99 01/18/18 08:00 82 01/18/18 07:46 35 01/18/18 06:00 78 01/18/18 04:19 100 35 01/18/18 04:00 81 01/18/18 04:00 99.2 81 20 125/71 (89) 100 6/19/18 04:00 35 18 02:00 80 618 00:00 79 618 00:00 99.3 79 18 118/61 (80) 100 18 00:00 35 618/18 23:36 100 35 618/18 22:00 79 61818 20:00 98.9 75 18 148/72 (97) 100 18 20:00 35 1818 20:00 75 18 19:59 100 35 1818 18:00 75 1818 18:00 98.6 75 18 142/77 (98) 100 01/17/18 16:00 78 01/17/18 16:00 40 01/17/18 15:03 99 40 01/17/18 14:00 102 01/17/18 12:15 98.4 75 21 138/78 (98) 100 01/17/18 12:00 40 18 12:00 96 19 143/75 (97) 100 01/17/18 12:00 96 18 11:11 100 40 I/O 18/18 6/18/18 6/18/18 6//18 6/19/18 618 07:00 15:00 23:00 07:00 15:00 23:00 Intake Total 1541 ml 170 ml 1208 ml 1352 ml 100 ml Output Total 1825 ml 2200 ml 950 ml 0 ml Balance -284 ml 170 ml -992 ml 402 ml 100 ml IV Total 700 ml 170 ml 300 ml 500 ml 100 ml Tube Feeding 241 ml 608 ml 552 ml Tube Irrigant 300 ml Other 600 ml 300 ml Output Urine Total 1825 ml 2200 ml 950 ml 0 ml # Bowel Movements 1 0 1 Physical Exam GENERAL: Intubated and sedated SKIN: Warm and dry. HEAD: Atraumatic. Normocephalic. EYES: Pupils equal and round. No scleral icterus. No injection or drainage. ENT: No nasal bleeding or discharge. Mucous membranes pink and moist. NECK: Trachea midline. No JVD. CARDIOVASCULAR: Regular rate and rhythm. RESPIRATORY: No accessory muscle use. Decreased breath sounds with scattered rhonchi GASTROINTESTINAL: Abdomen soft, non-tender, nondistended. Hepatic and splenic margins not palpable. MUSCULOSKELETAL: Extremities without clubbing, cyanosis, or edema. No obvious deformities. NEUROLOGICAL: Intubated and sedated Laboratory Laboratory Tests Test 01/17/18 18:54 01/17/18 21:04 01/18/18 01:40 01/18/18 05:11 Potassium Level 3.0 MEQ/L 4.1 MEQ/L B-Type Natriuretic Peptide 189 PG/ML Urine Eosinophils RARE /HPF Blood Urea Nitrogen 53 MG/DL Creatinine 2.18 MG/DL Random Glucose 108 MG/DL Total Protein 8.4 GM/DL Albumin 3.5 GM/DL Calcium Level 9.4 MG/DL Phosphorus Level 5.2 MG/DL Magnesium Level 3.1 MG/DL Alkaline Phosphatase 153 U/L Aspartate Amino Transf (AST/SGOT) 56 U/L Alanine Aminotransferase (ALT/SGPT) 64 U/L Total Bilirubin 0.4 MG/DL Sodium Level 141 MEQ/L Chloride Level 102 MEQ/L Carbon Dioxide Level 28.3 MEQ/L Anion Gap 11 MEQ/L Estimat Glomerular Filtration Rate 31 ML/MIN Test 01/18/18 07:25 01/18/18 10:35 White Blood Count 12.3 TH/MM3 Red Blood Count 3.64 MIL/MM3 Hemoglobin 11.0 GM/DL Hematocrit 33.7 % Mean Corpuscular Volume 92.5 FL Mean Corpuscular Hemoglobin 30.3 PG Mean Corpuscular Hemoglobin Concent 32.8 % Red Cell Distribution Width 14.2 % Platelet Count 493 TH/MM3 Mean Platelet Volume 8.3 FL Neutrophils (%) (Auto) 74.4 % Lymphocytes (%) (Auto) 10.0 % Monocytes (%) (Auto) 9.7 % Eosinophils (%) (Auto) 5.3 % Basophils (%) (Auto) 0.6 % Neutrophils # (Auto) 9.2 TH/MM3 Lymphocytes # (Auto) 1.2 TH/MM3 Monocytes # (Auto) 1.2 TH/MM3 Eosinophils # (Auto) 0.7 TH/MM3 Basophils # (Auto) 0.1 TH/MM3 CBC Comment DIFF FINAL Differential Comment Blood Gas Puncture Site LT RADIAL Blood Gas Patient Temperature 98.6 Blood Gas HCO3 28 mmol/L Blood Gas Base Excess 4.1 mmol/L Blood Gas Oxygen Saturation 95 % Arterial Blood pH 7.47 Arterial Blood Partial Pressure CO2 39 mmHg Arterial Blood Partial Pressure O2 112 mmHg Arterial Blood Oxygen Content 15.0 Vol % Arterial Blood Carboxyhemoglobin 0.6 % Arterial Blood Methemoglobin 1.8 % Blood Gas Hemoglobin 11.1 G/DL Oxygen Delivery Device VENTILATOR Blood Gas Ventilator Setting CPAP 5/10PS Blood Gas Inspired Oxygen 35 % Assessment and Plan Problem List: (1) Bilateral pneumonia ICD Codes: J18.9 - Pneumonia, unspecified organism Status: Acute (2) Hypoxia ICD Codes: R09.02 - Hypoxemia Status: Acute (3) Tachyarrhythmia ICD Codes: R00.0 - Tachycardia, unspecified Status: Acute (4) Paroxysmal atrial flutter ICD Codes: I48.92 - Unspecified atrial flutter Status: Acute Assessment and Plan 1) SOB secondary to PNA Bloody mucus, TB ruled out s/p intubation for respiratory failure 2) Aflutter with RVR, now in sinus rhythm Most likely potentiated by his underlying illness Not an anti-coagulation candidate at this time due to hemoptysis 3) EF 30-35% 4) 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 Lamar Echo technically difficult, does not appear like a replacement of aortic valve 5) Abdominal aortic aneurysm Follow up with Dr. Lamar 6) Tobacco cessation 7) Elevated troponins Type 2 in nature due to underlying illness/hypoxemia Medical management as he is not an invasive candidate with hemoptysis This can be reevaluated through out the hospital course and outpt 8) May need usp wean from vent per critical care Problem Qualifiers (1) Bilateral pneumonia: Qualified Codes: J18.1 - Lobar pneumonia, unspecified organism Atul Galan DO Jan 18, 2018 11:07
--- NOTE | 2018-01-18 14:25 | HHI.IDPN ---
Subjective Subjective Remarks Extubated again On NC O2 Creatinine stable, UOP adequate + urine eosinophils afebrile Antibiotics cefepime Allergies: Coded Allergies: No Known Allergies (Verified Allergy, Unknown, 01/07/18) Objective . Vital Signs Date Time Temp Pulse Resp B/P (MAP) Pulse Ox O2 Delivery O2 Flow Rate FiO2 01/18/18 12:29 100 Nasal Cannula 3 01/18/18 12:29 100 Nasal Cannula 3.00 01/18/18 10:58 99 35 01/18/18 10:00 75 01/18/18 08:13 99 35 01/18/18 08:00 35 01/18/18 08:00 99.0 82 18 160/77 (104) 99 01/18/18 08:00 82 01/18/18 07:46 35 01/18/18 06:00 78 01/18/18 04:19 100 35 01/18/18 04:00 81 01/18/18 04:00 99.2 81 20 125/71 (89) 100 01/18/18 04:00 35 01/18/18 02:00 80 01/18/18 00:00 79 01/18/18 00:00 99.3 79 18 118/61 (80) 100 01/18/18 00:00 35 01/17/18 23:36 100 35 01/17/18 22:00 79 01/17/18 20:00 98.9 75 18 148/72 (97) 100 01/17/18 20:00 35 01/17/18 20:00 75 01/17/18 19:59 100 35 01/17/18 18:00 75 01/17/18 18:00 98.6 75 18 142/77 (98) 100 01/17/18 16:00 78 01/17/18 16:00 40 01/17/18 15:03 99 40 01/18/18 01/18/18 01/19/18 15:00 23:00 07:00 Intake Total 100 ml Output Total 0 ml Balance 100 ml IV Total 100 ml Output Urine Total 0 ml . Laboratory Tests Test 01/17/18 05:37 01/18/18 07:25 White Blood Count 11.6 TH/MM3 12.3 TH/MM3 Red Blood Count 3.73 MIL/MM3 3.64 MIL/MM3 Hemoglobin 11.5 GM/DL 11.0 GM/DL Hematocrit 34.8 % 33.7 % Mean Corpuscular Volume 93.2 FL 92.5 FL Mean Corpuscular Hemoglobin 30.9 PG 30.3 PG Mean Corpuscular Hemoglobin Concent 33.2 % 32.8 % Red Cell Distribution Width 14.3 % 14.2 % Platelet Count 476 TH/MM3 493 TH/MM3 Mean Platelet Volume 8.9 FL 8.3 FL Neutrophils (%) (Auto) 74.4 % Lymphocytes (%) (Auto) 10.0 % Monocytes (%) (Auto) 9.7 % Eosinophils (%) (Auto) 5.3 % Basophils (%) (Auto) 0.6 % Neutrophils # (Auto) 9.2 TH/MM3 Lymphocytes # (Auto) 1.2 TH/MM3 Monocytes # (Auto) 1.2 TH/MM3 Eosinophils # (Auto) 0.7 TH/MM3 Basophils # (Auto) 0.1 TH/MM3 CBC Comment DIFF FINAL Differential Comment Laboratory Tests Test 01/16/18 16:05 01/17/18 05:37 01/17/18 18:54 01/17/18 21:04 Blood Urea Nitrogen 27 MG/DL 47 MG/DL Creatinine 1.86 MG/DL 2.19 MG/DL Random Glucose 129 MG/DL 142 MG/DL Calcium Level 8.9 MG/DL 9.2 MG/DL Phosphorus Level 6.8 MG/DL Magnesium Level 3.4 MG/DL Sodium Level 142 MEQ/L 141 MEQ/L Potassium Level 4.1 MEQ/L 3.0 MEQ/L 3.0 MEQ/L Chloride Level 101 MEQ/L 95 MEQ/L Carbon Dioxide Level 29.5 MEQ/L 28.1 MEQ/L Anion Gap 12 MEQ/L 18 MEQ/L Estimat Glomerular Filtration Rate 37 ML/MIN 30 ML/MIN B-Type Natriuretic Peptide 189 PG/ML Test 01/18/18 05:11 Blood Urea Nitrogen 53 MG/DL Creatinine 2.18 MG/DL Random Glucose 108 MG/DL Total Protein 8.4 GM/DL Albumin 3.5 GM/DL Calcium Level 9.4 MG/DL Phosphorus Level 5.2 MG/DL Magnesium Level 3.1 MG/DL Alkaline Phosphatase 153 U/L Aspartate Amino Transf (AST/SGOT) 56 U/L Alanine Aminotransferase (ALT/SGPT) 64 U/L Total Bilirubin 0.4 MG/DL Sodium Level 141 MEQ/L Potassium Level 4.1 MEQ/L Chloride Level 102 MEQ/L Carbon Dioxide Level 28.3 MEQ/L Anion Gap 11 MEQ/L Estimat Glomerular Filtration Rate 31 ML/MIN Microbiology Date/Time Source Procedure Growth Status 01/17/18 23:50 Sputum Endotracheal Gram Stain - Final Resulted 01/17/18 23:50 Sputum Endotracheal Sputum Culture Pending Resulted Imaging Last Impressions Chest X-Ray 01/17/18 0000 Signed Impressions: CONCLUSION: 1. Moderately improved right upper lobe airspace disease. Head CT 01/14/18 Signed Impressions: CONCLUSION: 1. Negative for acute process. Renal Ultrasound 01/08/18 Signed Impressions: CONCLUSION: 1. Atrophic left kidney. Right kidney unremarkable. No hydronephrosis. Lower Extremity Ultrasound 01/08/18 Signed Impressions: CONCLUSION: 1. Negative for deep venous thrombosis bilateral lower extremities. Chest CT 01/07/18 Addendum Impressions: CONCLUSION: 1. There is airspace consolidation in bilateral upper lobes highly suspicious for pneumonia. 2. Small bilateral pleural effusions. 3. 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 4. Superior endplate depression and compression of one of the upper lumbar stevan tebrae not adequately characterized probably chronic. Physical Exam CONSTITUTIONAL/GENERAL: This is an adequately nourished patient, in no apparent distress. TUBES/LINES/DRAINS: SKIN: No jaundice, rashes, or lesions. Skin temperature appropriate. Not diaphoretic. CARDIOVASCULAR: Regular rate and rhythm without murmurs, gallops, or rubs. No JVD. Peripheral pulses symmetric. RESPIRATORY/CHEST: Symmetric, unlabored respirations; clear Breath sounds very diminished bilaterally. GASTROINTESTINAL: Abdomen soft, non-tender, nondistended. No hepato-splenomegaly , or palpable masses. No guarding. Bowel sounds present. GENITOURINARY: Without palpable bladder distension. Yao catheter in place. with clear yellow urine MUSCULOSKELETAL: Extremities without clubbing, cyanosis, or edema. NEUROLOGICAL: awake, alert, communicartes, follows PSYCHIATRIC: calm, cooperative Assessment & Plan Remarks Severe B/l PNA - hemoptysis - Gstain of sputum is neg for org's failure to wean Acute vent dependent resp failure - - extubated agfain tody Multiple med problems MTB negative ARF- creatinine stabel Reason: acute interstitial nephritis cont cefepime up to 7 days (include zosyn time) fu repeat CXR fu repeat sputum fu creatinine consult nephrology (AIN) Humera Chappell Dr, MD Jan 18, 2018 14:25
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
--- NOTE | 2018-01-18 17:02 | EKG ---
Date Performed: 01/17/2018 Time Performed: 14:32:14 PTAGE: 67 years EKG: Sinus rhythm MODERATE VOLTAGE CRITERIA FOR LVH, CONSIDER NORMAL VARIANT NONSPECIFIC ST & T-WAVE ABNORMALITY ALEXANDER DONNELLY ECG PREVIOUS TRACING : 01/07/2018 20.13 Since the previous tracing, no significant change noted DOCTOR: Oneyda Stevenson Interpretating Date/Time 01/18/2018 17:00:29
[2018-01-19] VITALS (16 sets, daily range): BP systolic 126–194; BP diastolic 62–88; PULSE 69–100; RESP 19–28; TEMP 98.3–99.3; O2SAT 96–100
[2018-01-19] MEDS: RESP: ALBUTEROL 2.5 MG/IPRATROPIUM 0.5 MG NEB (SCH) NEB ×6 (03:48→23:14)
[2018-01-19 04:18] LABS: AUTOMATED NEUTROPHIL # 7.6 TH/MM3 (1.8-7.7); BASOPHIL # 0.1 TH/MM3 (0-0.2); BASOPHIL % 0.8 % (0.0-2.0); EOSINOPHIL # 0.4 TH/MM3 (0-0.4); EOSINOPHIL % 4.2 % (0.0-4.0); HEMATOCRIT 32.7 % (39.0-51.0); HEMOGLOBIN 10.9 GM/DL (13.0-17.0); LYMPH % 12.7 % (9.0-44.0); LYMPHOCYTE # 1.3 TH/MM3 (1.0-4.8); MEAN CELL VOLUME 93.5 FL (80.0-100.0); MEAN CORPUSCULAR HGB CONC 33.2 % (32.0-36.0); MEAN PLATELET VOLUME 8.3 FL (7.0-11.0); MONO % 8.5 % (0.0-8.0); MONOCYTE # 0.9 TH/MM3 (0-0.9); NEUT % 73.8 % (16.0-70.0); PLATELET COUNT 493 TH/MM3 (150-450); RED CELL DISTRIBUTION WIDTH 14.2 % (11.6-17.2); WHITE BLOOD COUNT 10.3 TH/MM3 (4.0-11.0)
[2018-01-19 04:51] LABS: ALBUMIN 3.1 GM/DL (3.4-5.0); ALKALINE PHOSPHATASE 125 U/L (45-117); ALT (GPT) 60 U/L (12-78); AST (GOT) 44 U/L (15-37); BICARBONATE 22.5 MEQ/L (21.0-32.0); BLOOD UREA NITROGEN 44 MG/DL (7-18); CALCIUM 9.2 MG/DL (8.5-10.1); CHLORIDE 108 MEQ/L (98-107); CREATININE 1.31 MG/DL (0.60-1.30); GLOMERULAR FILTRATION RATE 55 ML/MIN (>89); GLUCOSE,RANDOM 92 MG/DL (74-106); SODIUM (NA) 143 MEQ/L (136-145); TOTAL BILIRUBIN ADULT 0.5 MG/DL (0.2-1.0); TOTAL PROTEIN 7.7 GM/DL (6.4-8.2)
[2018-01-19] MEDS: INSULIN ASPART SUPPLEMENTAL SCALE SQ SCH ×4 (06:00→18:00)
[2018-01-19] MEDS ORDERED: POTASSIUM CHLORIDE 20 MEQ CONTROLLED RELEASE TAB PO ONE (06:15)
[2018-01-19] MEDS: SODIUM CHLOR 0.9% 1000 ML INJ 1,000 ML IV SCH ×2 (07:38→14:51)
[2018-01-19] MEDS: METOPROLOL TARTRATE 25 MG TAB PO SCH ×2 (07:49→21:13)
[2018-01-19] MEDS: ASPIRIN 81 MG CHEW TAB CHEW SCH (07:49)
[2018-01-19] MEDS: SODIUM CHLORIDE 0.9% FLUSH 10 ML FLUSH IV FLUSH SCH ×2 (07:49→21:13)
[2018-01-19] MEDS: DOCUSATE SODIUM 50 MG/SENNA 8.6 MG TAB PO SCH ×2 (07:50→21:00)
[2018-01-19] MEDS: CEFEPIME INJ 2,000 MG in SODIUM CHLORIDE 0.9% INJ 100 ML IV SCH ×2 (07:50→21:13)
[2018-01-19] MEDS: CHLORHEXIDINE 0.12% (ORAL KIT) 15 ML CUP MT SCH ×2 (07:50→20:00)
[2018-01-19] MEDS: HEPARIN SODIUM - SQ 10,000 UNITS/ML VIAL SQ SCH ×2 (08:08→21:13)
[2018-01-19] MEDS: FAMOTIDINE 20 MG TAB PO SCH ×2 (08:08→21:13)
[2018-01-19] MEDS ORDERED: POTASSIUM PHOSPHATE MONOBASIC 500 MG TAB PO/TUBE PRN (09:30)
[2018-01-19] MEDS ORDERED: POTASSIUM PHOSPHATE INJ 30 MMOL in SODIUM CHLOR 0.9% 250 ML INJ 250 ML IV PRN (09:30)
[2018-01-19] MEDS ORDERED: POTASSIUM PHOSPHATE MONOBASIC 500 MG TAB PO PRN (09:30)
[2018-01-19] MEDS ORDERED: POTASSIUM CHLOR 20 MEQ PREMIX 100 ML IV PRN (09:30)
[2018-01-19] MEDS ORDERED: MAGNESIUM SULFATE INJ 2 GM in SODIUM CHLORIDE 0.9% INJ 96 ML IV PRN (09:30)
[2018-01-19] MEDS ORDERED: MAGNESIUM OXIDE 400 MG TAB PO PRN (09:30)
[2018-01-19] MEDS ORDERED: MAGNESIUM SULFATE INJ 4 GM in SODIUM CHLORIDE 0.9% INJ 92 ML IV PRN (09:30)
[2018-01-19] MEDS ORDERED: SODIUM PHOSPHATE INJ 30 MMOL in SODIUM CHLOR 0.9% 250 ML INJ 240 ML IV PRN (09:30)
[2018-01-19] MEDS ORDERED: POTASSIUM CHLORIDE 25 MEQ EFFERVESCENT TAB PO PRN (09:30)
[2018-01-19] MEDS ORDERED: POTASSIUM CHLOR 40 MEQ PREMIX 100 ML IV PRN ×2 (09:30)
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
--- NOTE | 2018-01-19 14:07 | PD.CARD.PN ---
Subjective Subjective Remarks Telemetry sinus rhythm Extubated Objective Medications Current Medications Medications (Trade) Dose Ordered Sig/Herber Route Start Time Stop Time Status Last Admin (NS Flush) 2 ml BID IV FLUSH 01/07/18 21:00 01/19/18 07:49 (NS Flush) 2 ml UNSCH PRN IV FLUSH 01/07/18 13:00 01/11/18 07:40 (Apresoline) 10 mg Q45M PRN PO 01/07/18 15:00 (Aspirin Chew) 81 mg DAILY CHEW 01/08/18 09:00 01/19/18 07:49 (Tylenol) 650 mg Q4H PRN PO 01/08/18 11:30 01/17/18 10:10 (Zofran Odt) 4 mg Q6H PRN PO 01/08/18 12:15 (Reglan Inj) 5 mg Q6H PRN IV PUSH 01/08/18 11:30 (Tylenol) 650 mg Q6H PRN PO 01/08/18 11:30 01/19/18 13:07 (Percocet 10-325 Mg) 1 tab Q6H PRN PO 01/08/18 11:30 01/08/18 12:22 (Morphine Inj) 2 mg Q3H PRN IV PUSH 01/08/18 12:15 (Morphine Inj) 4 mg Q3H PRN IV PUSH 01/08/18 12:15 (Narcan Inj) 0.4 mg UNSCH PRN IV PUSH 01/08/18 11:30 (Lashay-Colace) 1 tab BID PO 01/08/18 21:00 01/18/18 07:36 (Senokot) 17.2 mg Q12H PRN PO 01/08/18 11:30 (Dulcolax Supp) 10 mg DAILY PRN RECTAL 01/08/18 11:30 (Lactulose Liq) 30 ml DAILY PRN PO 01/08/18 11:30 (Robitussin Ac 200-20 Mg/10 ml Liq) 5 ml Q6H PRN PO 01/08/18 14:00 (Albuterol Neb) 2.5 mg Q2HR NEB PRN NEB 01/08/18 17:30 (Peridex 0.12% Liq) 15 ml BID@08,20 MT 01/09/18 08:00 01/18/18 07:38 (D50w (Vial) Inj) 50 ml UNSCH PRN IV PUSH 01/09/18 12:45 (Glucagon Inj) 1 mg UNSCH PRN OTHER 01/09/18 12:45 (NovoLOG SUPPLEMENTAL SCALE) 1 Q6HR SQ 01/09/18 12:45 01/17/18 11:51 (Heparin Inj) 5,000 units Q12HR SQ 01/09/18 21:00 01/19/18 08:08 (Pill Splitter) 1 ea UNSCH PRN OTHER 01/09/18 16:15 Sodium Chloride 1,000 ml @ 40 mls/hr Q24H IV 01/17/18 08:00 01/18/18 21:43 (Pepcid) 10 mg BID PO 01/17/18 21:00 01/19/18 08:08 Cefepime HCl 2000 mg/Sodium Chloride 100 ml @ 200 mls/hr Q12H IV 01/17/18 21:00 01/19/18 07:50 (Lopressor) 25 mg Q12HR PO 01/18/18 09:00 01/19/18 07:49 (Duoneb Neb) 1 ampule Q4HR NEB NEB 01/19/18 12:00 01/19/18 11:51 Potassium Chloride 100 ml @ 50 mls/hr Q2H PRN IV 01/19/18 09:30 Potassium Chloride 100 ml @ 50 mls/hr Q2H PRN IV 01/19/18 09:30 (K-Lyte Cl Eff) 50 meq UNSCH PRN PO 01/19/18 09:30 Potassium Chloride 100 ml @ 25 mls/hr UNSCH PRN IV 01/19/18 09:30 Potassium Chloride 100 ml @ 50 mls/hr Q2H PRN IV 01/19/18 09:30 Magnesium Sulfate 4 gm/Sodium Chloride 100 ml @ 50 mls/hr UNSCH PRN IV 01/19/18 09:30 (Mag-Ox) 800 mg UNSCH PRN PO 01/19/18 09:30 Magnesium Sulfate 2 gm/Sodium Chloride 100 ml @ 50 mls/hr UNSCH PRN IV 01/19/18 09:30 (K-Phos) 2,000 mg Q4H PRN PO 01/19/18 09:30 Sodium Phosphate 30 mmol/Sodium Chloride 250 ml @ 42 mls/hr UNSCH PRN IV 01/19/18 09:30 (K-Phos) 2,000 mg UNSCH PRN PO/TUBE 01/19/18 09:30 Potassium Phosphate 30 mmol/ Sodium Chloride 260 ml @ 42 mls/hr UNSCH PRN IV 01/19/18 09:30 Vital Signs / I&O Vital Signs Date Time Temp Pulse Resp B/P (MAP) Pulse Ox O2 Delivery O2 Flow Rate FiO2 01/19/18 12:00 98.7 71 21 165/74 (104) 100 01/19/18 12:00 71 01/19/18 10:00 83 01/19/18 08:00 82 01/19/18 08:00 98.3 82 19 154/72 (99) 99 01/19/18 07:42 97 Nasal Cannula 3.00 01/19/18 06:00 84 01/19/18 04:00 84 01/19/18 04:00 99.3 84 21 128/62 (84) 100 01/19/18 03:48 98 Nasal Cannula 2.00 01/19/18 02:00 100 01/19/18 00:00 98.8 90 21 126/63 (84) 100 01/19/18 00:00 90 01/18/18 23:34 99 Nasal Cannula 2.00 01/18/18 22:00 86 01/18/18 20:38 99 Nasal Cannula 2.00 01/18/18 20:00 99.2 91 29 149/70 (96) 96 01/18/18 20:00 91 01/18/18 18:00 82 01/18/18 16:00 98.8 85 22 128/61 (83) 97 01/18/18 16:00 85 I/O 01/18/18 01/18/18 01/18/18 01/19/18 01/19/18 01/19/18 07:00 15:00 23:00 07:00 15:00 23:00 Intake Total 1352 ml 100 ml 1308 ml 775 ml Output Total 950 ml 0 ml 1300 ml 1200 ml Balance 402 ml 100 ml 8 ml -425 ml IV Total 500 ml 100 ml 1125 ml 775 ml Tube Feeding 552 ml 123 ml Tube Irrigant 60 ml Other 300 ml Output Urine Total 950 ml 0 ml 1300 ml 1200 ml # Bowel Movements 1 2 4 Physical Exam GENERAL: NAD SKIN: Warm and dry. HEAD: Atraumatic. Normocephalic. EYES: Pupils equal and round. No scleral icterus. No injection or drainage. ENT: No nasal bleeding or discharge. Mucous membranes pink and moist. NECK: Trachea midline. No JVD. CARDIOVASCULAR: Regular rate and rhythm. RESPIRATORY: No accessory muscle use. Decreased breath sounds with scattered rhonchi GASTROINTESTINAL: Abdomen soft, non-tender, nondistended. Hepatic and splenic margins not palpable. MUSCULOSKELETAL: Extremities without clubbing, cyanosis, or edema. No obvious deformities. NEUROLOGICAL: No focal deficits Laboratory Laboratory Tests Test 01/19/18 03:31 01/19/18 10:15 White Blood Count 10.3 TH/MM3 Red Blood Count 3.50 MIL/MM3 Hemoglobin 10.9 GM/DL Hematocrit 32.7 % Mean Corpuscular Volume 93.5 FL Mean Corpuscular Hemoglobin 31.0 PG Mean Corpuscular Hemoglobin Concent 33.2 % Red Cell Distribution Width 14.2 % Platelet Count 493 TH/MM3 Mean Platelet Volume 8.3 FL Neutrophils (%) (Auto) 73.8 % Lymphocytes (%) (Auto) 12.7 % Monocytes (%) (Auto) 8.5 % Eosinophils (%) (Auto) 4.2 % Basophils (%) (Auto) 0.8 % Neutrophils # (Auto) 7.6 TH/MM3 Lymphocytes # (Auto) 1.3 TH/MM3 Monocytes # (Auto) 0.9 TH/MM3 Eosinophils # (Auto) 0.4 TH/MM3 Basophils # (Auto) 0.1 TH/MM3 CBC Comment DIFF FINAL Differential Comment Blood Urea Nitrogen 44 MG/DL Creatinine 1.31 MG/DL Random Glucose 92 MG/DL Total Protein 7.7 GM/DL Albumin 3.1 GM/DL Calcium Level 9.2 MG/DL Alkaline Phosphatase 125 U/L Aspartate Amino Transf (AST/SGOT) 44 U/L Alanine Aminotransferase (ALT/SGPT) 60 U/L Total Bilirubin 0.5 MG/DL Sodium Level 143 MEQ/L Potassium Level 3.1 MEQ/L Chloride Level 108 MEQ/L Carbon Dioxide Level 22.5 MEQ/L Anion Gap 13 MEQ/L Estimat Glomerular Filtration Rate 55 ML/MIN Phosphorus Level 3.1 MG/DL Assessment and Plan Problem List: (1) Bilateral pneumonia ICD Codes: J18.9 - Pneumonia, unspecified organism Status: Acute (2) Hypoxia ICD Codes: R09.02 - Hypoxemia Status: Acute (3) Tachyarrhythmia ICD Codes: R00.0 - Tachycardia, unspecified Status: Acute (4) Paroxysmal atrial flutter ICD Codes: I48.92 - Unspecified atrial flutter Status: Acute Assessment and Plan 1) SOB secondary to PNA Bloody mucus, TB ruled out s/p intubation for respiratory failure 2) Aflutter with RVR, now in sinus rhythm Most likely potentiated by his underlying illness Not an anti-coagulation candidate at this time due to hemoptysis 3) EF 30-35% 4) 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 Lamar Echo technically difficult, does not appear like a replacement of aortic valve 5) Abdominal aortic aneurysm Follow up with Dr. Lamar 6) Tobacco cessation 7) Elevated troponins Type 2 in nature due to underlying illness/hypoxemia Medical management as he is not an invasive candidate with hemoptysis This can be reevaluated most likely outpt Problem Qualifiers (1) Bilateral pneumonia: Qualified Codes: J18.1 - Lobar pneumonia, unspecified organism Atul Galan DO Jan 19, 2018 14:07
--- NOTE | 2018-01-19 16:05 | HHI.NPPN ---
Subjective History of Present Illness Patient is a 67-year-old male with history of open heart surgery for uncertain reasons, TIA, and bilateral carotid stenting. Presented to Ed with 3 day history of cough productive of bloody sputum, as well as sharp epigastric abdominal worse with deep breathing. Patient went into respiratory failure and was intubated and extubated today. Most of information is obtained from chart as patient is lethargic. Nephrology is consulted for acute interstitial nephritis with elevated BUN and creatinine with a creatinine of 2.18. On admission creatinine was at 1.40 and improved to 1.05 and is now at 2.18. Urine EOS is rare and patient has good urinary output. Per records he was on a lasix gtt and patient appears dry. Additional Remarks Uncomfortable in bed, reports that he is eating and drinking well. Creatinine is improved at 131 today. (Camille Leach) Review of Systems General Constitutional: Fatigue (Camille Leach) Objective Data Data Vital Signs Date Time Temp Pulse Resp B/P (MAP) Pulse Ox O2 Delivery O2 Flow Rate FiO2 01/19/18 14:00 78 01/19/18 12:00 98.7 71 21 165/74 (104) 100 01/19/18 12:00 71 01/19/18 10:00 83 01/19/18 08:00 82 01/19/18 08:00 98.3 82 19 154/72 (99) 99 01/19/18 07:42 97 Nasal Cannula 3.00 01/19/18 06:00 84 01/19/18 04:00 84 01/19/18 04:00 99.3 84 21 128/62 (84) 100 01/19/18 03:48 98 Nasal Cannula 2.00 01/19/18 02:00 100 01/19/18 00:00 98.8 90 21 126/63 (84) 100 01/19/18 00:00 90 01/18/18 23:34 99 Nasal Cannula 2.00 01/18/18 22:00 86 01/18/18 20:38 99 Nasal Cannula 2.00 01/18/18 20:00 99.2 91 29 149/70 (96) 96 01/18/18 20:00 91 01/18/18 18:00 82 01/18/18 16:00 98.8 85 22 128/61 (83) 97 01/18/18 16:00 85 (Camille Leach) -: 01/19/18 0331 01/19/18 0331 Imaging Last Impressions Chest X-Ray 01/17/18 0000 Signed Impressions: CONCLUSION: 1. Moderately improved right upper lobe airspace disease. Head CT 01/14/18 0000 Signed Impressions: CONCLUSION: 1. Negative for acute process. Renal Ultrasound 01/08/18 0000 Signed Impressions: CONCLUSION: 1. Atrophic left kidney. Right kidney unremarkable. No hydronephrosis. Lower Extremity Ultrasound 01/08/18 0000 Signed Impressions: CONCLUSION: 1. Negative for deep venous thrombosis bilateral lower extremities. Chest CT 01/07/18 0000 Addendum Impressions: CONCLUSION: 1. There is airspace consolidation in bilateral upper lobes highly suspicious for pneumonia. 2. Small bilateral pleural effusions. 3. 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 4. Superior endplate depression and compression of one of the upper lumbar stevan tebrae not adequately characterized probably chronic. (Camille Leach) Physical Exam General Appearance: No Acute Distress, Comfortable (Camille Leach) Throat Throat Exam: Oral Mucosa [place] & Moist (Camille Leach) Pulmonary Resp Exam: Breath Sounds Equal, No Distress (Camille Leach) Gastrointestinal/Abdomen GI Exam: Soft, Non-Tender (Camille Leach) Integumentary Skin Exam: Clear, Warm (Camille Leach) Extremeties Extremities Exam: No Edema (Camille Leach) Neurologic Neuro Exam: Alert, Awake (Camille Leach) Assessment/Plan Assessment Summary: GRAYSON/Acute Renal Failure Problem List: (1) Acute kidney injury ICD Codes: N17.9 - Acute kidney failure, unspecified Plan: Acute kidney injury with a creatinine of 2.18 and potassium of 4.1 on day of admission GRAYSON from possible AIN from medication with rare EOS or prerenal with diuresis Antibiotics changed from Zosyn to cefepime possible offending agent Renal ultrasound with a atrophic left kidney, right kidney unremarkable, and no hydronephrosis on the 01/08. Maintain strict I+O Continue gentle hydration. When patient taking adequate PO discontinue Hypokalemia replacement given. Will monitor urinary output and BMP (2) Paroxysmal atrial flutter ICD Codes: I48.92 - Unspecified atrial flutter Status: Acute Plan: Cardiology consulted (3) Bilateral pneumonia ICD Codes: J18.9 - Pneumonia, unspecified organism Status: Acute Plan: On antibiotics (Camille Leach) Problem List: (1) Acute kidney injury ICD Codes: N17.9 - Acute kidney failure, unspecified Plan: Acute kidney injury with a creatinine of 2.18 and potassium of 4.1 on day of admission GRAYSON from possible AIN from medication with rare EOS or prerenal with diuresis Antibiotics changed from Zosyn to cefepime possible offending agent Renal ultrasound with a atrophic left kidney, right kidney unremarkable, and no hydronephrosis on the 01/08. Maintain strict I+O Continue gentle hydration. When patient taking adequate PO discontinue Hypokalemia replacement given. Will monitor urinary output and BMP Patient seen and examined, agree with above. Creatinine is improving, continue gentle Hydration. (2) Paroxysmal atrial flutter ICD Codes: I48.92 - Unspecified atrial flutter Status: Acute Plan: Cardiology consulted (3) Bilateral pneumonia ICD Codes: J18.9 - Pneumonia, unspecified organism Status: Acute Plan: On antibiotics (Erinn Nixon MD) Problem Qualifiers (1) Bilateral pneumonia: Qualified Codes: J18.1 - Lobar pneumonia, unspecified organism Camille Leach Jan 19, 2018 16:05 Erinn Nixon MD Jan 19, 2018 21:55
[2018-01-20] VITALS (14 sets, daily range): BP systolic 129–196; BP diastolic 69–141; PULSE 78–153; RESP 19–31; TEMP 98.1–98.9; O2SAT 94–100
[2018-01-20] MEDS: hydrALAZINE HCL 10 MG TAB PO PRN ×3 (00:28→10:34)
[2018-01-20] MEDS: RESP: ALBUTEROL 2.5 MG/IPRATROPIUM 0.5 MG NEB (SCH) NEB ×6 (04:07→23:31)
[2018-01-20 05:10] LABS: ALBUMIN 3.1 GM/DL (3.4-5.0); AST (GOT) 59 U/L (15-37); BICARBONATE 18.9 MEQ/L (21.0-32.0); BLOOD UREA NITROGEN 36 MG/DL (7-18); CALCIUM 9.6 MG/DL (8.5-10.1); CHLORIDE 109 MEQ/L (98-107); CREATININE 1.03 MG/DL (0.60-1.30); GLOMERULAR FILTRATION RATE 72 ML/MIN (>89); GLUCOSE,RANDOM 87 MG/DL (74-106); SODIUM (NA) 140 MEQ/L (136-145)
[2018-01-20 05:14] LABS: ALKALINE PHOSPHATASE 119 U/L (45-117); ALT (GPT) 73 U/L (12-78); TOTAL BILIRUBIN ADULT 0.5 MG/DL (0.2-1.0)
[2018-01-20] MEDS: INSULIN ASPART SUPPLEMENTAL SCALE SQ SCH ×4 (06:00→17:37)
[2018-01-20] MEDS: CHLORHEXIDINE 0.12% (ORAL KIT) 15 ML CUP MT SCH ×2 (08:00→20:00)
[2018-01-20] MEDS: DOCUSATE SODIUM 50 MG/SENNA 8.6 MG TAB PO SCH ×2 (09:00→21:00)
[2018-01-20] MEDS: METOPROLOL TARTRATE 25 MG TAB PO SCH ×2 (09:23→21:30)
[2018-01-20] MEDS: ASPIRIN 81 MG CHEW TAB CHEW SCH (09:23)
[2018-01-20] MEDS: FAMOTIDINE 20 MG TAB PO SCH ×2 (09:24→21:29)
[2018-01-20] MEDS: SODIUM CHLORIDE 0.9% FLUSH 10 ML FLUSH IV FLUSH SCH ×2 (09:24→21:30)
[2018-01-20] MEDS: HEPARIN SODIUM - SQ 10,000 UNITS/ML VIAL SQ SCH ×2 (09:24→21:29)
--- NOTE | 2018-01-20 09:24 | HHI.NPPN ---
Subjective Renal Failure: Acute History of Present Illness Patient is a 67-year-old male with history of open heart surgery for uncertain reasons, TIA, and bilateral carotid stenting. Presented to Ed with 3 day history of cough productive of bloody sputum, as well as sharp epigastric abdominal worse with deep breathing. Patient went into respiratory failure and was intubated and extubated today. Most of information is obtained from chart as patient is lethargic. Nephrology is consulted for acute interstitial nephritis with elevated BUN and creatinine with a creatinine of 2.18. On admission creatinine was at 1.40 and improved to 1.05 and is now at 2.18. Urine EOS is rare and patient has good urinary output. Per records he was on a lasix gtt and patient appears dry. Additional Remarks Creatinine continues to improve at 1.03. No acute complaints. (Camille Leach) Review of Systems General Constitutional: Fatigue (Camille Leach) Objective Data Data Vital Signs Date Time Temp Pulse Resp B/P (MAP) Pulse Ox O2 Delivery O2 Flow Rate FiO2 01/20/18 08:25 95 21 01/20/18 06:00 79 01/20/18 04:00 89 01/20/18 04:00 98.9 89 28 192/96 (128) 97 01/20/18 02:00 80 01/20/18 00:00 78 01/20/18 00:00 98.3 78 24 178/86 (116) 94 01/19/18 22:00 81 01/19/18 21:06 96 Nasal Cannula 21 01/19/18 20:37 99 Nasal Cannula 2.00 01/19/18 20:00 98.8 69 23 194/88 (123) 98 01/19/18 20:00 69 01/19/18 18:00 78 01/19/18 16:00 98.5 77 28 155/73 (100) 97 01/19/18 16:00 77 01/19/18 14:00 78 01/19/18 12:00 98.7 71 21 165/74 (104) 100 01/19/18 12:00 71 01/19/18 10:00 83 (Camille Leach) -: 01/19/18 0331 01/20/18 0313 Physical Exam General Appearance: No Acute Distress, Comfortable (Camille Leach) Throat Throat Exam: Oral Mucosa Tatum & Moist (Camille Leach) Pulmonary Resp Exam: Breath Sounds Equal, No Distress (Cmaille Leach) Gastrointestinal/Abdomen GI Exam: Soft, Non-Tender (Camille eLach) Integumentary Skin Exam: Clear, Warm (Camille Leach) Extremeties Extremities Exam: No Edema (Camille Leach) Neurologic Neuro Exam: Alert, Awake (Camille Leach) Assessment/Plan Assessment Summary: GRAYSON/Acute Renal Failure Problem List: (1) Acute kidney injury ICD Codes: N17.9 - Acute kidney failure, unspecified Plan: Acute kidney injury with a creatinine of 2.18 and potassium of 4.1 on day of consult GRAYSON from possible AIN from medication with rare EOS or prerenal with diuresis Antibiotics changed from Zosyn to cefepime possible offending agent Renal ultrasound with a atrophic left kidney, right kidney unremarkable, and no hydronephrosis on the 01/08. Avoid nephrotoxins Creatinine improving at 1.03 today from 1.31 Continue gentle hydration. When patient taking adequate PO discontinue Hypokalemia with potassium level of 3.2 on replacement protocal Will monitor urinary output and BMP Creatinine has improved will seen patient PRN (2) Paroxysmal atrial flutter ICD Codes: I48.92 - Unspecified atrial flutter Status: Acute Plan: Cardiology consulted (3) Bilateral pneumonia ICD Codes: J18.9 - Pneumonia, unspecified organism Status: Acute Plan: On antibiotics (Camille Leach) Problem List: (1) Acute kidney injury ICD Codes: N17.9 - Acute kidney failure, unspecified Plan: Acute kidney injury with a creatinine of 2.18 and potassium of 4.1 on day of consult GRAYSON from possible AIN from medication with rare EOS or prerenal with diuresis Antibiotics changed from Zosyn to cefepime possible offending agent Renal ultrasound with a atrophic left kidney, right kidney unremarkable, and no hydronephrosis on the 01/08. Avoid nephrotoxins Creatinine improving at 1.03 today from 1.31 Continue gentle hydration. When patient taking adequate PO discontinue Hypokalemia with potassium level of 3.2 on replacement protocol Will monitor urinary output and BMP Creatinine has improved will seen patient PRN. Patient seen and examined, agree with above. Creatinine improve, will see PRN if needed. (2) Paroxysmal atrial flutter ICD Codes: I48.92 - Unspecified atrial flutter Status: Acute Plan: Cardiology consulted (3) Bilateral pneumonia ICD Codes: J18.9 - Pneumonia, unspecified organism Status: Acute Plan: On antibiotics (Erinn Nixon MD) Problem Qualifiers (1) Bilateral pneumonia: Qualified Codes: J18.1 - Lobar pneumonia, unspecified organism Camille Leach Jan 20, 2018 09:24 Erinn Nixon MD Jan 20, 2018 18:12
[2018-01-20] MEDS: CEFEPIME INJ 2,000 MG in SODIUM CHLORIDE 0.9% INJ 100 ML IV SCH ×2 (09:25→21:30)
--- NOTE | 2018-01-20 11:35 | PD.CARD.PN ---
Subjective Subjective Remarks Telemetry sinus rhythm Extubated Objective Medications Current Medications Medications (Trade) Dose Ordered Sig/Herber Route Start Time Stop Time Status Last Admin (NS Flush) 2 ml BID IV FLUSH 01/07/18 21:00 01/20/18 09:24 (NS Flush) 2 ml UNSCH PRN IV FLUSH 01/07/18 13:00 01/11/18 07:40 (Apresoline) 10 mg Q45M PRN PO 01/07/18 15:00 01/20/18 10:34 (Aspirin Chew) 81 mg DAILY CHEW 01/08/18 09:00 01/20/18 09:23 (Tylenol) 650 mg Q4H PRN PO 01/08/18 11:30 01/17/18 10:10 (Zofran Odt) 4 mg Q6H PRN PO 01/08/18 12:15 (Reglan Inj) 5 mg Q6H PRN IV PUSH 01/08/18 11:30 (Tylenol) 650 mg Q6H PRN PO 01/08/18 11:30 01/19/18 13:07 (Percocet 10-325 Mg) 1 tab Q6H PRN PO 01/08/18 11:30 01/08/18 12:22 (Morphine Inj) 2 mg Q3H PRN IV PUSH 01/08/18 12:15 (Morphine Inj) 4 mg Q3H PRN IV PUSH 01/08/18 12:15 (Narcan Inj) 0.4 mg UNSCH PRN IV PUSH 01/08/18 11:30 (Lashay-Colace) 1 tab BID PO 01/08/18 21:00 01/18/18 07:36 (Senokot) 17.2 mg Q12H PRN PO 01/08/18 11:30 (Dulcolax Supp) 10 mg DAILY PRN RECTAL 01/08/18 11:30 (Lactulose Liq) 30 ml DAILY PRN PO 01/08/18 11:30 (Robitussin Ac 200-20 Mg/10 ml Liq) 5 ml Q6H PRN PO 01/08/18 14:00 (Albuterol Neb) 2.5 mg Q2HR NEB PRN NEB 01/08/18 17:30 (Peridex 0.12% Liq) 15 ml BID@08,20 MT 01/09/18 08:00 01/18/18 07:38 (D50w (Vial) Inj) 50 ml UNSCH PRN IV PUSH 01/09/18 12:45 (Glucagon Inj) 1 mg UNSCH PRN OTHER 01/09/18 12:45 (NovoLOG SUPPLEMENTAL SCALE) 1 Q6HR SQ 01/09/18 12:45 01/17/18 11:51 (Heparin Inj) 5,000 units Q12HR SQ 01/09/18 21:00 01/20/18 09:24 (Pill Splitter) 1 ea UNSCH PRN OTHER 01/09/18 16:15 Sodium Chloride 1,000 ml @ 40 mls/hr Q24H IV 01/17/18 08:00 01/19/18 14:51 (Pepcid) 10 mg BID PO 01/17/18 21:00 01/20/18 09:24 Cefepime HCl 2000 mg/Sodium Chloride 100 ml @ 200 mls/hr Q12H IV 01/17/18 21:00 01/20/18 09:25 (Lopressor) 25 mg Q12HR PO 01/18/18 09:00 01/20/18 09:23 (Duoneb Neb) 1 ampule Q4HR NEB NEB 01/19/18 12:00 01/20/18 08:25 Potassium Chloride 100 ml @ 50 mls/hr Q2H PRN IV 01/19/18 09:30 Potassium Chloride 100 ml @ 50 mls/hr Q2H PRN IV 01/19/18 09:30 (K-Lyte Cl Eff) 50 meq UNSCH PRN PO 01/19/18 09:30 Potassium Chloride 100 ml @ 25 mls/hr UNSCH PRN IV 01/19/18 09:30 Potassium Chloride 100 ml @ 50 mls/hr Q2H PRN IV 01/19/18 09:30 Magnesium Sulfate 4 gm/Sodium Chloride 100 ml @ 50 mls/hr UNSCH PRN IV 01/19/18 09:30 (Mag-Ox) 800 mg UNSCH PRN PO 01/19/18 09:30 Magnesium Sulfate 2 gm/Sodium Chloride 100 ml @ 50 mls/hr UNSCH PRN IV 01/19/18 09:30 (K-Phos) 2,000 mg Q4H PRN PO 01/19/18 09:30 Sodium Phosphate 30 mmol/Sodium Chloride 250 ml @ 42 mls/hr UNSCH PRN IV 01/19/18 09:30 (K-Phos) 2,000 mg UNSCH PRN PO/TUBE 01/19/18 09:30 Potassium Phosphate 30 mmol/ Sodium Chloride 260 ml @ 42 mls/hr UNSCH PRN IV 01/19/18 09:30 Vital Signs / I&O Vital Signs Date Time Temp Pulse Resp B/P (MAP) Pulse Ox O2 Delivery O2 Flow Rate FiO2 01/20/18 10:00 84 01/20/18 08:25 95 21 01/20/18 08:00 98.4 84 31 189/141 (157) 96 01/20/18 08:00 84 01/20/18 06:00 79 01/20/18 04:00 89 01/20/18 04:00 98.9 89 28 192/96 (128) 97 01/20/18 02:00 80 01/20/18 00:00 78 01/20/18 00:00 98.3 78 24 178/86 (116) 94 01/19/18 22:00 81 01/19/18 21:06 96 Nasal Cannula 21 01/19/18 20:37 99 Nasal Cannula 2.00 01/19/18 20:00 98.8 69 23 194/88 (123) 98 01/19/18 20:00 69 01/19/18 18:00 78 01/19/18 16:00 98.5 77 28 155/73 (100) 97 01/19/18 16:00 77 01/19/18 14:00 78 01/19/18 12:00 98.7 71 21 165/74 (104) 100 01/19/18 12:00 71 I/O 01/19/18 01/19/18 01/19/18 01/20/18 01/20/18 01/20/18 07:00 15:00 23:00 07:00 15:00 23:00 Intake Total 775 ml 580 ml Output Total 1200 ml 100 ml 650 ml Balance -425 ml 480 ml -650 ml Intake Oral 480 ml IV Total 775 ml 100 ml Output Urine Total 1200 ml 100 ml 650 ml # Voids 3 # Bowel Movements 4 7 3 Physical Exam GENERAL: NAD SKIN: Warm and dry. HEAD: Atraumatic. Normocephalic. EYES: Pupils equal and round. No scleral icterus. No injection or drainage. ENT: No nasal bleeding or discharge. Mucous membranes pink and moist. NECK: Trachea midline. No JVD. CARDIOVASCULAR: Regular rate and rhythm. RESPIRATORY: No accessory muscle use. Decreased breath sounds with scattered rhonchi GASTROINTESTINAL: Abdomen soft, non-tender, nondistended. Hepatic and splenic margins not palpable. MUSCULOSKELETAL: Extremities without clubbing, cyanosis, or edema. No obvious deformities. NEUROLOGICAL: No focal deficits Laboratory Laboratory Tests Test 01/20/18 03:13 Blood Urea Nitrogen 36 MG/DL Creatinine 1.03 MG/DL Random Glucose 87 MG/DL Total Protein 8.0 GM/DL Albumin 3.1 GM/DL Calcium Level 9.6 MG/DL Alkaline Phosphatase 119 U/L Aspartate Amino Transf (AST/SGOT) 59 U/L Alanine Aminotransferase (ALT/SGPT) 73 U/L Total Bilirubin 0.5 MG/DL Sodium Level 140 MEQ/L Potassium Level 3.2 MEQ/L Chloride Level 109 MEQ/L Carbon Dioxide Level 18.9 MEQ/L Anion Gap 12 MEQ/L Estimat Glomerular Filtration Rate 72 ML/MIN Assessment and Plan Problem List: (1) Bilateral pneumonia ICD Codes: J18.9 - Pneumonia, unspecified organism Status: Acute (2) Hypoxia ICD Codes: R09.02 - Hypoxemia Status: Acute (3) Tachyarrhythmia ICD Codes: R00.0 - Tachycardia, unspecified Status: Acute (4) Paroxysmal atrial flutter ICD Codes: I48.92 - Unspecified atrial flutter Status: Acute Assessment and Plan 1) SOB secondary to PNA Bloody mucus, TB ruled out s/p intubation for respiratory failure 2) Aflutter with RVR, now in sinus rhythm Most likely potentiated by his underlying illness Not an anti-coagulation candidate at this time due to hemoptysis 3) EF 30-35% 4) 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 Lamar Echo technically difficult, does not appear like a replacement of aortic valve 5) Abdominal aortic aneurysm Follow up with Dr. Lamar 6) Tobacco cessation 7) Elevated troponins Type 2 in nature due to underlying illness/hypoxemia Medical management as he is not an invasive candidate with hemoptysis This can be reevaluated most likely outpt 8) HTN Will add Norvasc Can be titrated up Problem Qualifiers (1) Bilateral pneumonia: Qualified Codes: J18.1 - Lobar pneumonia, unspecified organism Atul Galan DO Jan 20, 2018 11:35
[2018-01-20] MEDS ORDERED: amLODIPine BESYLATE 5 MG TAB PO SCH (11:45)
[2018-01-20] MEDS ORDERED: amLODIPine BESYLATE 5 MG TAB PO ONE (13:45)
[2018-01-20] MEDS: SODIUM CHLOR 0.9% 1000 ML INJ 1,000 ML IV SCH (13:47)
[2018-01-20] MEDS ORDERED: METOPROLOL TARTRATE 5 MG/5 ML VIAL IV PUSH PRN (14:15)
[2018-01-20] MEDS: DILTIAZEM HCL 30 MG TAB PO SCH ×2 (14:19→21:29)
[2018-01-20] MEDS ORDERED: TAMSULOSIN HCL 0.4 MG CAP PO ONE (14:30)
[2018-01-20] MEDS: cloNIDine HCL 0.1 MG TAB PO PRN (14:49)
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
[2018-01-20] MEDS: POTASSIUM CHLOR 20 MEQ PREMIX 100 ML IV PRN ×2 (15:43→17:37)
[2018-01-20 18:05] LABS: BILIRUBIN, URINE NEG (NEG); BLOOD, URINE NEG (NEG); GLUCOSE,URINE NEG (NEG); KETONE, URINE TRACE mg/dL (NEG); MUCUS URINE FEW /lpf (OCC); NITRITE,URINE NEG (NEG); URINE COLOR YELLOW (YELLW/STRAW); URINE LEUKOCYTE ESTERASE NEG (NEG)
[2018-01-21] VITALS (15 sets, daily range): BP systolic 119–161; BP diastolic 60–77; PULSE 67–84; RESP 16–24; TEMP 97.7–98.5; O2SAT 97–100
[2018-01-21] MEDS: hydrALAZINE HCL 10 MG TAB PO PRN (02:43)
[2018-01-21] MEDS: DILTIAZEM HCL 30 MG TAB PO SCH ×4 (02:43→21:36)
[2018-01-21] MEDS: cloNIDine HCL 0.1 MG TAB PO PRN (04:11)
[2018-01-21] MEDS: RESP: ALBUTEROL 2.5 MG/IPRATROPIUM 0.5 MG NEB (SCH) NEB ×5 (04:52→21:11)
[2018-01-21] MEDS: INSULIN ASPART SUPPLEMENTAL SCALE SQ SCH ×3 (06:00→12:00)
[2018-01-21] MEDS: TAMSULOSIN HCL 0.4 MG CAP PO SCH (07:38)
[2018-01-21] MEDS: METOPROLOL TARTRATE 25 MG TAB PO SCH ×2 (07:38→21:37)
[2018-01-21] MEDS: DOCUSATE SODIUM 50 MG/SENNA 8.6 MG TAB PO SCH ×2 (07:38→21:36)
[2018-01-21] MEDS: FAMOTIDINE 20 MG TAB PO SCH ×2 (07:38→21:36)
[2018-01-21] MEDS: CEFEPIME INJ 2,000 MG in SODIUM CHLORIDE 0.9% INJ 100 ML IV SCH ×2 (07:38→21:36)
[2018-01-21] MEDS: CHLORHEXIDINE 0.12% (ORAL KIT) 15 ML CUP MT SCH ×2 (07:39→20:00)
[2018-01-21] MEDS: SODIUM CHLORIDE 0.9% FLUSH 10 ML FLUSH IV FLUSH SCH ×2 (07:39→21:36)
[2018-01-21] MEDS: ASPIRIN 81 MG CHEW TAB CHEW SCH (07:39)
[2018-01-21] MEDS: HEPARIN SODIUM - SQ 10,000 UNITS/ML VIAL SQ SCH ×2 (07:40→21:37)
[2018-01-21 07:55] LABS: AUTOMATED NEUTROPHIL # 6.5 TH/MM3 (1.8-7.7); BASOPHIL # 0.1 TH/MM3 (0-0.2); BASOPHIL % 1.3 % (0.0-2.0); EOSINOPHIL # 0.5 TH/MM3 (0-0.4); EOSINOPHIL % 5.1 % (0.0-4.0); HEMATOCRIT 34.1 % (39.0-51.0); HEMOGLOBIN 11.4 GM/DL (13.0-17.0); LYMPH % 18.8 % (9.0-44.0); LYMPHOCYTE # 1.8 TH/MM3 (1.0-4.8); MEAN CELL VOLUME 91.6 FL (80.0-100.0); MEAN CORPUSCULAR HEMOGLOBIN 30.7 PG (27.0-34.0); MEAN CORPUSCULAR HGB CONC 33.6 % (32.0-36.0); MEAN PLATELET VOLUME 7.9 FL (7.0-11.0); MONOCYTE # 0.8 TH/MM3 (0-0.9); NEUT % 66.8 % (16.0-70.0); PLATELET COUNT 522 TH/MM3 (150-450); RED BLOOD COUNT 3.72 MIL/MM3 (4.50-5.90); RED CELL DISTRIBUTION WIDTH 13.9 % (11.6-17.2); WHITE BLOOD COUNT 9.8 TH/MM3 (4.0-11.0)
[2018-01-21 08:33] LABS: ALBUMIN 2.9 GM/DL (3.4-5.0); BICARBONATE 18.4 MEQ/L (21.0-32.0); CREATININE 1.09 MG/DL (0.60-1.30); MAGNESIUM 2.3 MG/DL (1.5-2.5)
[2018-01-21] MEDS: POTASSIUM CHLOR 20 MEQ PREMIX 100 ML IV PRN ×3 (09:08→13:30)
--- NOTE | 2018-01-21 12:34 | PD.CARD.PN ---
Subjective Subjective Remarks Telemetry sinus rhythm Episode of Aflutter with RVR yesterday, but since being on Cardizem no longer rapid Denies CP/SOB Objective Medications Current Medications Medications (Trade) Dose Ordered Sig/Herber Route Start Time Stop Time Status Last Admin (NS Flush) 2 ml BID IV FLUSH 01/07/18 21:00 01/21/18 07:39 (NS Flush) 2 ml UNSCH PRN IV FLUSH 01/07/18 13:00 01/11/18 07:40 (Apresoline) 10 mg Q45M PRN PO 01/07/18 15:00 01/21/18 02:43 (Aspirin Chew) 81 mg DAILY CHEW 01/08/18 09:00 01/21/18 07:39 (Tylenol) 650 mg Q4H PRN PO 01/08/18 11:30 01/17/18 10:10 (Zofran Odt) 4 mg Q6H PRN PO 01/08/18 12:15 (Reglan Inj) 5 mg Q6H PRN IV PUSH 01/08/18 11:30 (Tylenol) 650 mg Q6H PRN PO 01/08/18 11:30 01/19/18 13:07 (Percocet 10-325 Mg) 1 tab Q6H PRN PO 01/08/18 11:30 01/08/18 12:22 (Morphine Inj) 2 mg Q3H PRN IV PUSH 01/08/18 12:15 (Morphine Inj) 4 mg Q3H PRN IV PUSH 01/08/18 12:15 (Narcan Inj) 0.4 mg UNSCH PRN IV PUSH 01/08/18 11:30 (Lashay-Colace) 1 tab BID PO 01/08/18 21:00 01/18/18 07:36 (Senokot) 17.2 mg Q12H PRN PO 01/08/18 11:30 (Dulcolax Supp) 10 mg DAILY PRN RECTAL 01/08/18 11:30 (Lactulose Liq) 30 ml DAILY PRN PO 01/08/18 11:30 (Robitussin Ac 200-20 Mg/10 ml Liq) 5 ml Q6H PRN PO 01/08/18 14:00 (Albuterol Neb) 2.5 mg Q2HR NEB PRN NEB 01/08/18 17:30 (Peridex 0.12% Liq) 15 ml BID@08,20 MT 01/09/18 08:00 01/18/18 07:38 (D50w (Vial) Inj) 50 ml UNSCH PRN IV PUSH 01/09/18 12:45 (Glucagon Inj) 1 mg UNSCH PRN OTHER 01/09/18 12:45 (NovoLOG SUPPLEMENTAL SCALE) 1 Q6HR SQ 01/09/18 12:45 01/17/18 11:51 (Heparin Inj) 5,000 units Q12HR SQ 01/09/18 21:00 01/21/18 07:40 (Pill Splitter) 1 ea UNSCH PRN OTHER 01/09/18 16:15 Sodium Chloride 1,000 ml @ 40 mls/hr Q24H IV 01/17/18 08:00 01/20/18 13:47 (Pepcid) 10 mg BID PO 01/17/18 21:00 01/21/18 07:38 Cefepime HCl 2000 mg/Sodium Chloride 100 ml @ 200 mls/hr Q12H IV 01/17/18 21:00 01/21/18 07:38 (Lopressor) 25 mg Q12HR PO 01/18/18 09:00 01/21/18 07:38 (Duoneb Neb) 1 ampule Q4HR NEB NEB 01/19/18 12:00 01/21/18 11:28 Potassium Chloride 100 ml @ 50 mls/hr Q2H PRN IV 01/19/18 09:30 Potassium Chloride 100 ml @ 50 mls/hr Q2H PRN IV 01/19/18 09:30 01/21/18 11:29 (K-Lyte Cl Eff) 50 meq UNSCH PRN PO 01/19/18 09:30 Potassium Chloride 100 ml @ 25 mls/hr UNSCH PRN IV 01/19/18 09:30 Potassium Chloride 100 ml @ 50 mls/hr Q2H PRN IV 01/19/18 09:30 Magnesium Sulfate 4 gm/Sodium Chloride 100 ml @ 50 mls/hr UNSCH PRN IV 01/19/18 09:30 (Mag-Ox) 800 mg UNSCH PRN PO 01/19/18 09:30 Magnesium Sulfate 2 gm/Sodium Chloride 100 ml @ 50 mls/hr UNSCH PRN IV 01/19/18 09:30 (K-Phos) 2,000 mg Q4H PRN PO 01/19/18 09:30 Sodium Phosphate 30 mmol/Sodium Chloride 250 ml @ 42 mls/hr UNSCH PRN IV 01/19/18 09:30 (K-Phos) 2,000 mg UNSCH PRN PO/TUBE 01/19/18 09:30 Potassium Phosphate 30 mmol/ Sodium Chloride 260 ml @ 42 mls/hr UNSCH PRN IV 01/19/18 09:30 (Cardizem) 30 mg Q6H PO 01/20/18 15:00 01/21/18 07:38 (Lopressor Inj) 2.5 mg Q5M PRN IV PUSH 01/20/18 14:15 (Catapres) 0.1 mg Q6H PRN PO 01/20/18 14:30 01/21/18 04:11 (Flomax) 0.4 mg DAILY PO 01/21/18 09:00 01/21/18 07:38 Vital Signs / I&O Vital Signs Date Time Temp Pulse Resp B/P (MAP) Pulse Ox O2 Delivery O2 Flow Rate FiO2 01/21/18 10:00 67 01/21/18 09:27 98 01/21/18 09:25 126/67 (86) 01/21/18 08:00 98.1 67 23 145/68 (93) 99 01/21/18 08:00 67 01/21/18 07:55 98 01/21/18 06:00 71 01/21/18 04:00 70 01/21/18 04:00 98.1 70 17 161/77 (105) 98 01/21/18 02:00 71 01/21/18 00:00 98.5 84 21 123/60 (81) 100 01/21/18 00:00 84 01/20/18 22:00 82 01/20/18 20:00 98.5 83 25 129/69 (89) 100 01/20/18 20:00 83 01/20/18 19:48 96 21 01/20/18 18:00 113 01/20/18 16:00 89 01/20/18 16:00 98.1 89 19 140/74 (96) 97 01/20/18 14:00 153 I/O 6/21/18 601/20/18 01/21/18 01/21/18 01/21/18 07:00 15:00 23:00 07:00 15:00 23:00 Intake Total 525 ml 240 ml Output Total 650 ml 1400 ml 475 ml Balance -650 ml -875 ml -235 ml Intake Oral 525 ml 240 ml Output Urine Total 650 ml 1400 ml 475 ml # Bowel Movements 3 5 1 Physical Exam GENERAL: NAD SKIN: Warm and dry. HEAD: Atraumatic. Normocephalic. EYES: Pupils equal and round. No scleral icterus. No injection or drainage. ENT: No nasal bleeding or discharge. Mucous membranes pink and moist. NECK: Trachea midline. No JVD. CARDIOVASCULAR: Regular rate and rhythm. RESPIRATORY: No accessory muscle use. Decreased breath sounds with scattered rhonchi GASTROINTESTINAL: Abdomen soft, non-tender, nondistended. Hepatic and splenic margins not palpable. MUSCULOSKELETAL: Extremities without clubbing, cyanosis, or edema. No obvious deformities. NEUROLOGICAL: No focal deficits Laboratory Laboratory Tests Test 01/20/18 15:04 01/21/18 06:57 Urine Color YELLOW Urine Turbidity CLEAR Urine pH 6.0 Urine Specific Orient 1.017 Urine Protein 30 mg/dL Urine Glucose (UA) NEG mg/dL Urine Ketones TRACE mg/dL Urine Occult Blood NEG Urine Nitrite NEG Urine Bilirubin NEG Urine Urobilinogen LESS THAN 2 mg/dL Urine Leukocyte Esterase NEG Urine RBC LESS THAN 1 /hpf Urine WBC LESS THAN 1 /hpf Urine Mucus FEW /lpf Microscopic Urinalysis Comment CATH-CULT NOT IND White Blood Count 9.8 TH/MM3 Red Blood Count 3.72 MIL/MM3 Hemoglobin 11.4 GM/DL Hematocrit 34.1 % Mean Corpuscular Volume 91.6 FL Mean Corpuscular Hemoglobin 30.7 PG Mean Corpuscular Hemoglobin Concent 33.6 % Red Cell Distribution Width 13.9 % Platelet Count 522 TH/MM3 Mean Platelet Volume 7.9 FL Neutrophils (%) (Auto) 66.8 % Lymphocytes (%) (Auto) 18.8 % Monocytes (%) (Auto) 8.0 % Eosinophils (%) (Auto) 5.1 % Basophils (%) (Auto) 1.3 % Neutrophils # (Auto) 6.5 TH/MM3 Lymphocytes # (Auto) 1.8 TH/MM3 Monocytes # (Auto) 0.8 TH/MM3 Eosinophils # (Auto) 0.5 TH/MM3 Basophils # (Auto) 0.1 TH/MM3 CBC Comment DIFF FINAL Differential Comment Blood Urea Nitrogen 39 MG/DL Creatinine 1.09 MG/DL Random Glucose 99 MG/DL Albumin 2.9 GM/DL Calcium Level 9.0 MG/DL Phosphorus Level 3.0 MG/DL Magnesium Level 2.3 MG/DL Sodium Level 143 MEQ/L Potassium Level 3.1 MEQ/L Chloride Level 112 MEQ/L Carbon Dioxide Level 18.4 MEQ/L Anion Gap 13 MEQ/L Estimat Glomerular Filtration Rate 68 ML/MIN Assessment and Plan Problem List: (1) Bilateral pneumonia ICD Codes: J18.9 - Pneumonia, unspecified organism Status: Acute (2) Hypoxia ICD Codes: R09.02 - Hypoxemia Status: Acute (3) Tachyarrhythmia ICD Codes: R00.0 - Tachycardia, unspecified Status: Acute (4) Paroxysmal atrial flutter ICD Codes: I48.92 - Unspecified atrial flutter Status: Acute Assessment and Plan 1) SOB secondary to PNA Bloody mucus, TB ruled out s/p intubation for respiratory failure, s.p extubation 2) Aflutter with RVR, now in sinus rhythm Most likely potentiated by his underlying illness Not an anti-coagulation candidate at this time due to hemoptysis Can be reconsidered in the outpt setting 3) EF 30-35% 4) 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 Lamar Echo technically difficult, does not appear like a replacement of aortic valve 5) Abdominal aortic aneurysm Follow up with Dr. Lamar 6) Tobacco cessation 7) Elevated troponins Type 2 in nature due to underlying illness/hypoxemia Medical management as he is not an invasive candidate with hemoptysis This can be reevaluated most likely outpt 8) HTN Started on Cardizem for heart rate/bp control 9) Dr. Harrison will be available PRN over the weekend Problem Qualifiers (1) Bilateral pneumonia: Qualified Codes: J18.1 - Lobar pneumonia, unspecified organism Atul Galan DO Jan 21, 2018 12:34
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
--- NOTE | 2018-01-21 14:54 | HHI.FF ---
Face to Face Verification Diagnosis: (1) General weakness (2) Paroxysmal atrial flutter Physical Therapy Order: Evaluate and Treat Home Health Nursing Order: Nursing assessment with vital signs I have seen patient Woodrow Campa on 01/21/18. My clinical findings support the need for the requested home health care services because: Limited ability to care for self I certify that my clinical findings support that this patient is homebound because: Unsafe to leave home unassisted Andrea Stallworth MD Jan 21, 2018 14:54
[2018-01-21] MEDS ORDERED: WALKER WHEELS/F1 MIS (14:56)
[2018-01-21] MEDS: SODIUM CHLOR 0.9% 1000 ML INJ 1,000 ML IV SCH (15:02)
[2018-01-22] VITALS (11 sets, daily range): BP systolic 134–159; BP diastolic 64–87; PULSE 75–102; RESP 16–19; TEMP 98.1–99.7; O2SAT 94–100
[2018-01-22] MEDS: DILTIAZEM HCL 30 MG TAB PO SCH ×4 (03:40→21:44)
[2018-01-22] MEDS: RESP: ALBUTEROL 2.5 MG/IPRATROPIUM 0.5 MG NEB (SCH) NEB ×7 (04:00→23:31)
[2018-01-22] MEDS: CHLORHEXIDINE 0.12% (ORAL KIT) 15 ML CUP MT SCH ×2 (08:00→20:00)
[2018-01-22 08:24] LABS: AUTOMATED NEUTROPHIL # 9.8 TH/MM3 (1.8-7.7); BASOPHIL # 0.1 TH/MM3 (0-0.2); BASOPHIL % 0.8 % (0.0-2.0); EOSINOPHIL # 0.6 TH/MM3 (0-0.4); EOSINOPHIL % 5.1 % (0.0-4.0); HEMATOCRIT 36.6 % (39.0-51.0); HEMOGLOBIN 12.2 GM/DL (13.0-17.0); LYMPH % 9.7 % (9.0-44.0); LYMPHOCYTE # 1.2 TH/MM3 (1.0-4.8); MEAN CELL VOLUME 93.4 FL (80.0-100.0); MEAN CORPUSCULAR HEMOGLOBIN 31.3 PG (27.0-34.0); MEAN CORPUSCULAR HGB CONC 33.4 % (32.0-36.0); MEAN PLATELET VOLUME 8.1 FL (7.0-11.0); MONO % 6.2 % (0.0-8.0); MONOCYTE # 0.8 TH/MM3 (0-0.9); NEUT % 78.2 % (16.0-70.0); PLATELET COUNT 567 TH/MM3 (150-450); RED BLOOD COUNT 3.92 MIL/MM3 (4.50-5.90); RED CELL DISTRIBUTION WIDTH 13.6 % (11.6-17.2); WHITE BLOOD COUNT 12.6 TH/MM3 (4.0-11.0)
[2018-01-22 08:49] LABS: ALBUMIN 3.2 GM/DL (3.4-5.0); BICARBONATE 15.5 MEQ/L (21.0-32.0); CALCIUM 9.2 MG/DL (8.5-10.1); CREATININE 1.06 MG/DL (0.60-1.30); MAGNESIUM 2.1 MG/DL (1.5-2.5); PHOSPHORUS 2.7 MG/DL (2.5-4.9)
[2018-01-22] MEDS: DOCUSATE SODIUM 50 MG/SENNA 8.6 MG TAB PO SCH ×2 (09:00→21:44)
[2018-01-22] MEDS: CEFEPIME INJ 2,000 MG in SODIUM CHLORIDE 0.9% INJ 100 ML IV SCH ×2 (09:33→21:46)
[2018-01-22] MEDS: HEPARIN SODIUM - SQ 10,000 UNITS/ML VIAL SQ SCH ×2 (09:34→21:45)
[2018-01-22] MEDS: METOPROLOL TARTRATE 25 MG TAB PO SCH ×2 (09:34→21:44)
[2018-01-22] MEDS: FAMOTIDINE 20 MG TAB PO SCH ×2 (09:34→21:44)
[2018-01-22] MEDS: TAMSULOSIN HCL 0.4 MG CAP PO SCH (09:34)
[2018-01-22] MEDS: ASPIRIN 81 MG CHEW TAB CHEW SCH (09:34)
[2018-01-22] MEDS: SODIUM CHLORIDE 0.9% FLUSH 10 ML FLUSH IV FLUSH SCH ×2 (09:34→21:46)
--- NOTE | 2018-01-22 09:50 | PD.CARD.PN ---
Subjective Subjective Remarks Pt resting comfortably, NSR, he denies cp./sob Objective Medications Current Medications Medications (Trade) Dose Ordered Sig/Herber Route Start Time Stop Time Status Last Admin (NS Flush) 2 ml BID IV FLUSH 01/07/18 21:00 01/22/18 09:34 (NS Flush) 2 ml UNSCH PRN IV FLUSH 01/07/18 13:00 01/11/18 07:40 (Apresoline) 10 mg Q45M PRN PO 01/07/18 15:00 01/21/18 02:43 (Aspirin Chew) 81 mg DAILY CHEW 01/08/18 09:00 01/22/18 09:34 (Tylenol) 650 mg Q4H PRN PO 01/08/18 11:30 01/17/18 10:10 (Zofran Odt) 4 mg Q6H PRN PO 01/08/18 12:15 (Reglan Inj) 5 mg Q6H PRN IV PUSH 01/08/18 11:30 (Tylenol) 650 mg Q6H PRN PO 01/08/18 11:30 01/19/18 13:07 (Percocet 10-325 Mg) 1 tab Q6H PRN PO 01/08/18 11:30 01/08/18 12:22 (Morphine Inj) 2 mg Q3H PRN IV PUSH 01/08/18 12:15 (Morphine Inj) 4 mg Q3H PRN IV PUSH 01/08/18 12:15 (Narcan Inj) 0.4 mg UNSCH PRN IV PUSH 01/08/18 11:30 (Lashay-Colace) 1 tab BID PO 01/08/18 21:00 01/21/18 21:36 (Senokot) 17.2 mg Q12H PRN PO 01/08/18 11:30 (Dulcolax Supp) 10 mg DAILY PRN RECTAL 01/08/18 11:30 (Lactulose Liq) 30 ml DAILY PRN PO 01/08/18 11:30 (Robitussin Ac 200-20 Mg/10 ml Liq) 5 ml Q6H PRN PO 01/08/18 14:00 (Albuterol Neb) 2.5 mg Q2HR NEB PRN NEB 01/08/18 17:30 (Peridex 0.12% Liq) 15 ml BID@08,20 MT 01/09/18 08:00 01/18/18 07:38 (Heparin Inj) 5,000 units Q12HR SQ 01/09/18 21:00 01/22/18 09:34 (Pill Splitter) 1 ea UNSCH PRN OTHER 01/09/18 16:15 Sodium Chloride 1,000 ml @ 40 mls/hr Q24H IV 01/17/18 08:00 01/21/18 15:02 (Pepcid) 10 mg BID PO 01/17/18 21:00 01/22/18 09:34 Cefepime HCl 2000 mg/Sodium Chloride 100 ml @ 200 mls/hr Q12H IV 01/17/18 21:00 01/22/18 09:33 (Lopressor) 25 mg Q12HR PO 01/18/18 09:00 01/22/18 09:34 (Duoneb Neb) 1 ampule Q4HR NEB NEB 01/19/18 12:00 01/22/18 08:18 (Cardizem) 30 mg Q6H PO 01/20/18 15:00 01/22/18 09:35 (Lopressor Inj) 2.5 mg Q5M PRN IV PUSH 01/20/18 14:15 (Catapres) 0.1 mg Q6H PRN PO 01/20/18 14:30 01/21/18 04:11 (Flomax) 0.4 mg DAILY PO 01/21/18 09:00 01/22/18 09:34 Vital Signs / I&O Vital Signs Date Time Temp Pulse Resp B/P (MAP) Pulse Ox O2 Delivery O2 Flow Rate FiO2 01/22/18 08:47 98.1 79 17 134/64 (87) 97 01/22/18 08:20 98 21 01/22/18 04:34 98.3 84 16 159/84 (109) 94 01/21/18 23:38 97.9 67 16 141/69 (93) 97 01/21/18 22:30 77 01/21/18 20:00 97.7 79 18 157/75 (102) 99 01/21/18 16:00 98.4 69 24 128/66 (86) 97 01/21/18 16:00 69 01/21/18 14:00 74 01/21/18 12:00 78 01/21/18 12:00 97.8 78 24 119/66 (83) 100 01/21/18 10:00 67 I/O 01/21/18 01/21/18 01/21/18 01/22/18 01/22/18 01/22/18 07:00 15:00 23:00 07:00 15:00 23:00 Intake Total 240 ml 240 ml Output Total 475 ml 501 ml 275 ml Balance -235 ml -501 ml -35 ml Intake Oral 240 ml 240 ml Output Urine Total 475 ml 500 ml 275 ml Stool Total 1 ml # Bowel Movements 1 1 1 Physical Exam GENERAL: This is a well-nourished, well-developed patient, in no apparent distress. CARDIOVASCULAR: Regular rate and rhythm without murmurs, gallops, or rubs. RESPIRATORY: Clear to auscultation. Breath sounds equal bilaterally. No wheezes , rales, or rhonchi. GASTROINTESTINAL: Abdomen soft, non-tender, nondistended. Normal active bowel sounds MUSCULOSKELETAL: Extremities without clubbing, cyanosis, or edema. NEURO: Alert & Oriented x4 to person, place, time, situation. Moves all ext x4 Laboratory Laboratory Tests Test 01/22/18 07:21 White Blood Count 12.6 TH/MM3 Red Blood Count 3.92 MIL/MM3 Hemoglobin 12.2 GM/DL Hematocrit 36.6 % Mean Corpuscular Volume 93.4 FL Mean Corpuscular Hemoglobin 31.3 PG Mean Corpuscular Hemoglobin Concent 33.4 % Red Cell Distribution Width 13.6 % Platelet Count 567 TH/MM3 Mean Platelet Volume 8.1 FL Neutrophils (%) (Auto) 78.2 % Lymphocytes (%) (Auto) 9.7 % Monocytes (%) (Auto) 6.2 % Eosinophils (%) (Auto) 5.1 % Basophils (%) (Auto) 0.8 % Neutrophils # (Auto) 9.8 TH/MM3 Lymphocytes # (Auto) 1.2 TH/MM3 Monocytes # (Auto) 0.8 TH/MM3 Eosinophils # (Auto) 0.6 TH/MM3 Basophils # (Auto) 0.1 TH/MM3 CBC Comment DIFF FINAL Differential Comment Blood Urea Nitrogen 30 MG/DL Creatinine 1.06 MG/DL Random Glucose 92 MG/DL Albumin 3.2 GM/DL Calcium Level 9.2 MG/DL Phosphorus Level 2.7 MG/DL Magnesium Level 2.1 MG/DL Sodium Level 141 MEQ/L Potassium Level 3.6 MEQ/L Chloride Level 112 MEQ/L Carbon Dioxide Level 15.5 MEQ/L Anion Gap 14 MEQ/L Estimat Glomerular Filtration Rate 70 ML/MIN Imaging Last Impressions Chest X-Ray 01/17/18 Signed Impressions: CONCLUSION: 1. Moderately improved right upper lobe airspace disease. Head CT 01/14/18 Signed Impressions: CONCLUSION: 1. Negative for acute process. Renal Ultrasound 01/08/18 Signed Impressions: CONCLUSION: 1. Atrophic left kidney. Right kidney unremarkable. No hydronephrosis. Lower Extremity Ultrasound 01/08/18 Signed Impressions: CONCLUSION: 1. Negative for deep venous thrombosis bilateral lower extremities. Chest CT 01/07/18 Addendum Impressions: CONCLUSION: 1. There is airspace consolidation in bilateral upper lobes highly suspicious for pneumonia. 2. Small bilateral pleural effusions. 3. 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 4. Superior endplate depression and compression of one of the upper lumbar stevan tebrae not adequately characterized probably chronic. Assessment and Plan Problem List: (1) Bilateral pneumonia ICD Codes: J18.9 - Pneumonia, unspecified organism Status: Acute (2) Hypoxia ICD Codes: R09.02 - Hypoxemia Status: Acute (3) Tachyarrhythmia ICD Codes: R00.0 - Tachycardia, unspecified Status: Acute (4) Paroxysmal atrial flutter ICD Codes: I48.92 - Unspecified atrial flutter Status: Acute Assessment and Plan 1) SOB secondary to PNA Bloody mucus, TB ruled out s/p intubation for respiratory failure, s.p extubation 2) Aflutter with RVR, now in sinus rhythm Most likely potentiated by his underlying illness Not an anti-coagulation candidate at this time due to hemoptysis Can be reconsidered in the outpt setting 3) EF 30-35% 4) 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 Lamar Echo technically difficult, does not appear like a replacement of aortic valve 5) Abdominal aortic aneurysm Follow up with Dr. Lamar 6) Tobacco cessation 7) Elevated troponins Type 2 in nature due to underlying illness/hypoxemia Medical management as he is not an invasive candidate with hemoptysis This can be reevaluated most likely outpt 8) HTN Started on Cardizem for heart rate/bp control Doing well on current medical mgt; will be available as needed, Dr. Galan will return Wednesday. Problem Qualifiers (1) Bilateral pneumonia: Qualified Codes: J18.1 - Lobar pneumonia, unspecified organism Henry Harrison MD Jan 22, 2018 09:50
--- NOTE | 2018-01-22 10:52 | HHI.PR ---
Subjective Remarks Patient seen and examined this morning, their vitals are stable and the patient is afebrile. Family is at bedside. Patient wants to know when he can go home. Per daughter when patient gets up to walk he feels dizzy. Denies chest pain. Objective Vital Signs Date Time Temp Pulse Resp B/P (MAP) Pulse Ox O2 Delivery O2 Flow Rate FiO2 01/22/18 08:47 98.1 79 17 134/64 (87) 97 01/22/18 08:20 98 21 01/22/18 08:00 Room Air 01/22/18 04:34 98.3 84 16 159/84 (109) 94 01/21/18 23:38 97.9 67 16 141/69 (93) 97 01/21/18 22:30 77 01/21/18 20:00 97.7 79 18 157/75 (102) 99 01/21/18 16:00 98.4 69 24 128/66 (86) 97 01/21/18 16:00 69 01/21/18 14:00 74 01/21/18 12:00 78 01/21/18 12:00 97.8 78 24 119/66 (83) 100 I/O 01/21/18 01/21/18 01/21/18 01/22/18 01/22/18 01/22/18 06:59 14:59 22:59 06:59 14:59 22:59 Intake Total 240 ml 240 ml Output Total 475 ml 501 ml 275 ml Balance -235 ml -501 ml -35 ml Intake Oral 240 ml 240 ml Output Urine Total 475 ml 500 ml 275 ml Stool Total 1 ml # Bowel Movements 1 1 1 Result Diagram: 01/22/18 0721 01/22/18 0721 Imaging Last Impressions Chest X-Ray 01/17/18 0000 Signed Impressions: CONCLUSION: 1. Moderately improved right upper lobe airspace disease. Head CT 01/14/18 0000 Signed Impressions: CONCLUSION: 1. Negative for acute process. Renal Ultrasound 01/08/18 0000 Signed Impressions: CONCLUSION: 1. Atrophic left kidney. Right kidney unremarkable. No hydronephrosis. Lower Extremity Ultrasound 01/08/18 0000 Signed Impressions: CONCLUSION: 1. Negative for deep venous thrombosis bilateral lower extremities. Chest CT 01/07/18 0000 Addendum Impressions: CONCLUSION: 1. There is airspace consolidation in bilateral upper lobes highly suspicious for pneumonia. 2. Small bilateral pleural effusions. 3. 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 4. Superior endplate depression and compression of one of the upper lumbar stevan tebrae not adequately characterized probably chronic. Objective Remarks GENERAL: Well-appearing, no acute distress SKIN: Warm and dry. HEAD: Normocephalic. EYES: No scleral icterus. No injection or drainage. NECK: Supple, trachea midline. No JVD or lymphadenopathy. CARDIOVASCULAR: Regular rate and rhythm without murmurs, gallops, or rubs. RESPIRATORY: Breath sounds equal bilaterally. No accessory muscle use. GASTROINTESTINAL: Abdomen soft, non-tender, nondistended. MUSCULOSKELETAL: No cyanosis, or edema. A/P Problem List: (1) Bilateral pneumonia ICD Code: J18.9 - Pneumonia, unspecified organism Status: Acute (2) Respiratory insufficiency ICD Code: R06.89 - Other abnormalities of breathing Status: Acute (3) Non-ST elevation [place] (NSTEMI) ICD Code: I21.4 - Non-ST elevation (NSTEMI) myocardial infarction Status: Acute Assessment and Plan In summary this is a 67-year-old male with an extensive cardiac history admitted for pneumonia and hypoxic respiratory A. fib with RVR Paroxysmal atrial flutter, type II and STEMI Followed by cardiology: Not on anticoagulation at this time due to hemoptysis,, now in sinus rhythm, EF 30-35%, previous chest surgery was an aortic arch replacement with the branching, echo technically difficult, elevated troponins likely due to underlying illness, hypoxemia, started on Cardizem for rate control, BP Acute hypoxic and hypercapnic respiratory failure Acute severe pulmonary edema Community acquired pneumonia Intubated 01/08 - extubated 01/15, reintubated 01/15 for flash pulmonary edema in the setting of SVT CT chest 01/07: negative for PE. Bilateral upper lobe consolidation. Small bilateral pleural effusions. QuantiFERON negative Pulmonology is following Infectious diseases following: Continue cefepime up to 7 days, okay to transition to oral Levaquin when ready for discharge [place] I Likely secondary to diuretics, creatinine continues to improve Elevated d-dimer CT chest negative for PE, bilateral lower extremity ultrasound negative for DVT DVT prophylaxis with heparin Discharge Planning Patient would prefer home with home health, at this time it appears the patient cannot walk to the restroom on his own. Will have PT come reevaluate patient. Case management to assist with discharge needs. Anticipate discharge in another day. Problem Qualifiers (1) Bilateral pneumonia: Qualified Codes: J18.1 - Lobar pneumonia, unspecified organism Pat Loaiza MD Jan 22, 2018 10:52
[2018-01-22] MEDS: SODIUM CHLOR 0.9% 1000 ML INJ 1,000 ML IV SCH (11:35)
[2018-01-22] MEDS: oxyCODONE/ACETAMINOPHEN 10 MG/325 MG TAB PO PRN (14:06)
[2018-01-23] VITALS (12 sets, daily range): BP systolic 118–162; BP diastolic 55–84; PULSE 71–105; RESP 18–24; TEMP 98.3–100; O2SAT 94–98
[2018-01-23] MEDS: cloNIDine HCL 0.1 MG TAB PO PRN (00:15)
[2018-01-23] MEDS: DILTIAZEM HCL 30 MG TAB PO SCH ×4 (02:19→20:36)
[2018-01-23] MEDS: RESP: ALBUTEROL 2.5 MG/IPRATROPIUM 0.5 MG NEB (SCH) NEB ×2 (04:29→08:00)
[2018-01-23] MEDS: CHLORHEXIDINE 0.12% (ORAL KIT) 15 ML CUP MT SCH ×2 (08:00→20:00)
[2018-01-23] MEDS: TAMSULOSIN HCL 0.4 MG CAP PO SCH (08:45)
[2018-01-23] MEDS: FAMOTIDINE 20 MG TAB PO SCH ×2 (08:45→20:36)
[2018-01-23] MEDS: METOPROLOL TARTRATE 25 MG TAB PO SCH ×2 (08:45→20:35)
[2018-01-23] MEDS: ASPIRIN 81 MG CHEW TAB CHEW SCH (08:45)
[2018-01-23] MEDS: DOCUSATE SODIUM 50 MG/SENNA 8.6 MG TAB PO SCH ×2 (08:46→20:37)
[2018-01-23] MEDS: HEPARIN SODIUM - SQ 10,000 UNITS/ML VIAL SQ SCH ×2 (08:46→20:38)
[2018-01-23] MEDS: CEFEPIME INJ 2,000 MG in SODIUM CHLORIDE 0.9% INJ 100 ML IV SCH ×2 (08:47→20:35)
[2018-01-23] MEDS: SODIUM CHLORIDE 0.9% FLUSH 10 ML FLUSH IV FLUSH SCH ×2 (08:47→20:35)
--- NOTE | 2018-01-23 09:31 | HHI.PR ---
Subjective Remarks Patient seen and examined this morning. v intermittent tachycardia overnight. T -max this morning of 100. Patient sleeping but easily arousable. Spoke to patient in Cuban. He responded that he was doing well, family not at bedside. No overnight events. Objective Vital Signs Date Time Temp Pulse Resp B/P (MAP) Pulse Ox O2 Delivery O2 Flow Rate FiO2 01/23/18 08:10 98.5 105 20 119/63 (81) 97 01/23/18 04:00 100.0 84 18 136/63 (87) 94 01/23/18 03:58 82 01/23/18 00:00 Room Air 01/23/18 00:00 99.9 105 18 162/84 (110) 98 01/23/18 00:00 96 01/22/18 23:31 94 21 01/22/18 20:30 Room Air 01/22/18 20:11 99 21 01/22/18 20:00 99.7 102 19 139/72 (94) 97 01/22/18 20:00 96 01/22/18 16:27 99.0 86 17 143/87 (105) 100 01/22/18 16:00 Room Air 01/22/18 15:58 75 01/22/18 12:27 98.1 86 17 141/72 (95) 99 01/22/18 12:00 Room Air 01/22/18 11:53 77 I/O 01/22/18 01/22/18 01/22/18 01/23/18 01/23/18 01/23/18 06:59 14:59 22:59 06:59 14:59 22:59 Intake Total 240 ml 380 ml Output Total 275 ml 350 ml Balance -35 ml 380 ml -350 ml Intake Oral 240 ml 380 ml Output Urine Total 275 ml 350 ml # Voids 5 # Bowel Movements 1 1 0 Result Diagram: 01/22/18 0721 01/22/18 0721 Imaging Last Impressions Chest X-Ray 01/17/18 0000 Signed Impressions: CONCLUSION: 1. Moderately improved right upper lobe airspace disease. Head CT 01/14/18 0000 Signed Impressions: CONCLUSION: 1. Negative for acute process. Renal Ultrasound 01/08/18 0000 Signed Impressions: CONCLUSION: 1. Atrophic left kidney. Right kidney unremarkable. No hydronephrosis. Lower Extremity Ultrasound 01/08/18 0000 Signed Impressions: CONCLUSION: 1. Negative for deep venous thrombosis bilateral lower extremities. Chest CT 01/07/18 0000 Addendum Impressions: CONCLUSION: 1. There is airspace consolidation in bilateral upper lobes highly suspicious for pneumonia. 2. Small bilateral pleural effusions. 3. 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 4. Superior endplate depression and compression of one of the upper lumbar stevan tebrae not adequately characterized probably chronic. Objective Remarks GENERAL: Well-appearing, no acute distress SKIN: Warm and dry. HEAD: Normocephalic. EYES: No scleral icterus. No injection or drainage. NECK: Supple, trachea midline. No JVD or lymphadenopathy. CARDIOVASCULAR: Regular rate and rhythm without murmurs, gallops, or rubs. RESPIRATORY: Breath sounds equal bilaterally. No accessory muscle use. GASTROINTESTINAL: Abdomen soft, non-tender, nondistended. MUSCULOSKELETAL: No cyanosis, or edema. A/P Problem List: (1) Bilateral pneumonia ICD Code: J18.9 - Pneumonia, unspecified organism Status: Acute (2) Respiratory insufficiency ICD Code: R06.89 - Other abnormalities of breathing Status: Acute (3) Non-ST elevation [place] (NSTEMI) ICD Code: I21.4 - Non-ST elevation (NSTEMI) myocardial infarction Status: Acute Assessment and Plan In summary this is a 67-year-old male with an extensive cardiac history admitted for pneumonia and hypoxia. A. 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 Bilateral upper lobe consolidation. Small bilateral pleural effusions. QuantiFERON negative Pulmonology is following Infectious diseases following: Continue cefepime up to 7 days (started on 01/17) , okay to transition to oral Levaquin when ready for discharge. Leukocytosis persist and patient with low grade fever. Today (01/23) is day 7. Will continue to watch patient today, CBC is pending. Monitor for any fevers. If does well today may consider transitioning to PO Levaquin tomorrow. If fever/ leukocytosis persist, will re-consult ID. AK I Likely secondary to diuretics, creatinine continues to improve Elevated d-dimer CT chest negative for PE, bilateral lower extremity ultrasound negative for DVT DVT prophylaxis with heparin Discharge Planning Patient would prefer home with home health, at this time it appears the patient cannot walk to the restroom on his own. Will have PT come reevaluate patient. Case management to assist with discharge needs. Anticipate discharge as early as Wednesday pending clinical improvement. Problem Qualifiers (1) Bilateral pneumonia: Qualified Codes: J18.1 - Lobar pneumonia, unspecified organism Pat Loaiza MD Jan 23, 2018 09:31
[2018-01-23 11:15] LABS: AUTOMATED NEUTROPHIL # 6.2 TH/MM3 (1.8-7.7); BASOPHIL # 0.1 TH/MM3 (0-0.2); BASOPHIL % 1.1 % (0.0-2.0); EOSINOPHIL % 0.4 % (0.0-4.0); HEMATOCRIT 31.8 % (39.0-51.0); HEMOGLOBIN 10.9 GM/DL (13.0-17.0); LYMPH % 10.7 % (9.0-44.0); LYMPHOCYTE # 0.8 TH/MM3 (1.0-4.8); MEAN CELL VOLUME 91.7 FL (80.0-100.0); MEAN CORPUSCULAR HEMOGLOBIN 31.4 PG (27.0-34.0); MEAN CORPUSCULAR HGB CONC 34.3 % (32.0-36.0); MEAN PLATELET VOLUME 7.9 FL (7.0-11.0); MONO % 7.6 % (0.0-8.0); MONOCYTE # 0.6 TH/MM3 (0-0.9); NEUT % 80.2 % (16.0-70.0); PLATELET COUNT 437 TH/MM3 (150-450); RED BLOOD COUNT 3.47 MIL/MM3 (4.50-5.90); RED CELL DISTRIBUTION WIDTH 13.8 % (11.6-17.2); WHITE BLOOD COUNT 7.7 TH/MM3 (4.0-11.0)
[2018-01-23] MEDS: SODIUM CHLOR 0.9% 1000 ML INJ 1,000 ML IV SCH (11:35)
[2018-01-23 11:44] LABS: BICARBONATE 16.2 MEQ/L (21.0-32.0); CALCIUM 8.6 MG/DL (8.5-10.1); CREATININE 1.01 MG/DL (0.60-1.30)
[2018-01-23] MEDS: oxyCODONE/ACETAMINOPHEN 10 MG/325 MG TAB PO PRN (16:49)
[2018-01-24] VITALS (8 sets, daily range): BP systolic 118–156; BP diastolic 64–78; PULSE 46–94; RESP 16–20; TEMP 97.4–98.6; O2SAT 95–96
[2018-01-24] MEDS: DILTIAZEM HCL 30 MG TAB PO SCH ×2 (02:56→09:08)
[2018-01-24] MEDS: CHLORHEXIDINE 0.12% (ORAL KIT) 15 ML CUP MT SCH ×2 (08:00→19:17)
[2018-01-24] MEDS: DOCUSATE SODIUM 50 MG/SENNA 8.6 MG TAB PO SCH ×2 (09:00→20:54)
[2018-01-24] MEDS: SODIUM CHLORIDE 0.9% FLUSH 10 ML FLUSH IV FLUSH SCH ×2 (09:00→20:55)
[2018-01-24] MEDS: oxyCODONE/ACETAMINOPHEN 10 MG/325 MG TAB PO PRN (09:07)
[2018-01-24] MEDS: ASPIRIN 81 MG CHEW TAB CHEW SCH (09:08)
[2018-01-24] MEDS: METOPROLOL TARTRATE 25 MG TAB PO SCH ×2 (09:08→20:54)
[2018-01-24] MEDS: CEFEPIME INJ 2,000 MG in SODIUM CHLORIDE 0.9% INJ 100 ML IV SCH (09:08)
[2018-01-24] MEDS: FAMOTIDINE 20 MG TAB PO SCH ×2 (09:09→20:54)
[2018-01-24] MEDS: TAMSULOSIN HCL 0.4 MG CAP PO SCH (09:09)
[2018-01-24] MEDS: HEPARIN SODIUM - SQ 10,000 UNITS/ML VIAL SQ SCH ×2 (09:09→20:54)
--- NOTE | 2018-01-24 09:34 | HHI.PR ---
Subjective Remarks Patient seen and examined this morning. HR stable. Vitals are stable, no fever in greater than 24 hrs. Has some left forearm pain, swelling, and redness from where IV was placed. Yesterday while walking to the bathroom and felt like the room was spinning. No further episodes of room spinning, but he does feel weak on his feet. Objective Vital Signs Date Time Temp Pulse Resp B/P (MAP) Pulse Ox O2 Delivery O2 Flow Rate FiO2 01/24/18 09:01 94 20 137/68 (91) 96 01/24/18 04:00 98.6 73 18 139/65 (89) 95 01/24/18 04:00 71 01/24/18 00:00 98.1 71 18 150/78 (102) 95 01/23/18 23:59 81 01/23/18 20:00 98.3 71 24 133/67 (89) 97 01/23/18 19:53 74 01/23/18 19:45 Room Air 01/23/18 16:05 98.8 76 20 139/66 (90) 98 01/23/18 16:00 Room Air 01/23/18 15:55 71 01/23/18 12:00 Room Air 01/23/18 12:00 99.0 82 20 118/55 (76) 94 01/23/18 11:42 76 I/O 01/23/18 01/23/18 01/23/18 01/24/18 01/24/18 01/24/18 07:00 15:00 23:00 07:00 15:00 23:00 Intake Total 600 ml 240 ml Output Total 350 ml 200 ml 125 ml Balance -350 ml 400 ml 115 ml Intake Oral 600 ml 240 ml Output Urine Total 350 ml 200 ml 125 ml # Voids 1 # Bowel Movements 0 Result Diagram: 01/23/18 1031 01/23/18 1031 Imaging Last Impressions Chest X-Ray 01/17/18 0000 Signed Impressions: CONCLUSION: 1. Moderately improved right upper lobe airspace disease. Head CT 01/14/18 0000 Signed Impressions: CONCLUSION: 1. Negative for acute process. Renal Ultrasound 01/08/18 0000 Signed Impressions: CONCLUSION: 1. Atrophic left kidney. Right kidney unremarkable. No hydronephrosis. Lower Extremity Ultrasound 01/08/18 0000 Signed Impressions: CONCLUSION: 1. Negative for deep venous thrombosis bilateral lower extremities. Chest CT 01/07/18 0000 Addendum Impressions: CONCLUSION: 1. There is airspace consolidation in bilateral upper lobes highly suspicious for pneumonia. 2. Small bilateral pleural effusions. 3. 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 4. Superior endplate depression and compression of one of the upper lumbar stevan tebrae not adequately characterized probably chronic. Objective Remarks GENERAL: Well-appearing, no acute distress SKIN: Warm and dry. Left fore arm with 3cm are of redness, swelling, and tenderness to palpation. Slightly warm to touch. HEAD: Normocephalic. EYES: No scleral icterus. No injection or drainage. NECK: Supple, trachea midline. No JVD or lymphadenopathy. CARDIOVASCULAR: Regular rate and rhythm without murmurs, gallops, or rubs. RESPIRATORY: Breath sounds equal bilaterally. No accessory muscle use. GASTROINTESTINAL: Abdomen soft, non-tender, nondistended. MUSCULOSKELETAL: No cyanosis, or edema. A/P Problem List: (1) Bilateral pneumonia ICD Code: J18.9 - Pneumonia, unspecified organism Status: Acute (2) Respiratory insufficiency ICD Code: R06.89 - Other abnormalities of breathing Status: Acute (3) Non-ST elevation [place] (NSTEMI) ICD Code: I21.4 - Non-ST elevation (NSTEMI) myocardial infarction Status: Acute Assessment and Plan In summary this is a 67-year-old male with an extensive cardiac history admitted for pneumonia and hypoxia. Dizziness upon standing Obtain orthostatic vitals Maybe related to deconditioning Up only with assistance Left Forearm Swelling from IV site Likely superficial thrombophlebitis ICE to area US soft tissue A. 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 Bilateral upper lobe consolidation. Small bilateral pleural effusions. QuantiFERON negative Pulmonology is following Infectious diseases following: Patient completed 7 days of cefepime. He has been without fevers or leukocytosis for greater than 24 hours. Will transition the patient to p.o. Levaquin. (01/24) Discussed with pharmacy, given GFR 750 mg dose okay. AK I Likely secondary to diuretics, creatinine continues to improve Elevated d-dimer CT chest negative for PE, bilateral lower extremity ultrasound negative for DVT DVT prophylaxis with heparin Discharge Planning PT recommends SNF CM to help with placement Daughter would like documentation to provide to her job that she is here with her father, I discussed this with Case Management Problem Qualifiers (1) Bilateral pneumonia: Qualified Codes: J18.1 - Lobar pneumonia, unspecified organism Pat Loaiza MD Jan 24, 2018 09:34
[2018-01-24 11:31] LABS: BASOPHIL # 0.1 TH/MM3 (0-0.2); BASOPHIL % 1.2 % (0.0-2.0); EOSINOPHIL # 0.3 TH/MM3 (0-0.4); EOSINOPHIL % 3.4 % (0.0-4.0); HEMATOCRIT 33.2 % (39.0-51.0); HEMOGLOBIN 11.1 GM/DL (13.0-17.0); LYMPH % 19.3 % (9.0-44.0); LYMPHOCYTE # 1.8 TH/MM3 (1.0-4.8); MEAN CELL VOLUME 92.7 FL (80.0-100.0); MEAN CORPUSCULAR HEMOGLOBIN 30.9 PG (27.0-34.0); MEAN CORPUSCULAR HGB CONC 33.4 % (32.0-36.0); MEAN PLATELET VOLUME 8.2 FL (7.0-11.0); MONO % 11.7 % (0.0-8.0); MONOCYTE # 1.1 TH/MM3 (0-0.9); NEUT % 64.4 % (16.0-70.0); PLATELET COUNT 457 TH/MM3 (150-450); RED BLOOD COUNT 3.58 MIL/MM3 (4.50-5.90); RED CELL DISTRIBUTION WIDTH 14.5 % (11.6-17.2); WHITE BLOOD COUNT 9.3 TH/MM3 (4.0-11.0)
[2018-01-24] MEDS: SODIUM CHLOR 0.9% 1000 ML INJ 1,000 ML IV SCH (12:25)
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
[2018-01-24 13:19] LABS: BICARBONATE 14.8 MEQ/L (21.0-32.0); CALCIUM 8.7 MG/DL (8.5-10.1)
[2018-01-24] MEDS ORDERED: LEVOFLOXACIN 750 MG TAB PO SCH (16:00)
--- NOTE | 2018-01-24 18:07 | PD.CARD.PN ---
Subjective Subjective Remarks Telemetry sinus rhythm/sinus bradycardia Used the automation application engineer to discuss with the patient and family Feels tired, no chest pain/SOB, no hemoptysis Arms hurt where he's been poked with IVs Objective Medications Current Medications Medications (Trade) Dose Ordered Sig/Herber Route Start Time Stop Time Status Last Admin (NS Flush) 2 ml BID IV FLUSH 01/07/18 21:00 01/22/18 21:46 (NS Flush) 2 ml UNSCH PRN IV FLUSH 01/07/18 13:00 01/11/18 07:40 (Apresoline) 10 mg Q45M PRN PO 01/07/18 15:00 01/21/18 02:43 (Aspirin Chew) 81 mg DAILY CHEW 01/08/18 09:00 01/24/18 09:08 (Tylenol) 650 mg Q4H PRN PO 01/08/18 11:30 01/17/18 10:10 (Zofran Odt) 4 mg Q6H PRN PO 01/08/18 12:15 (Reglan Inj) 5 mg Q6H PRN IV PUSH 01/08/18 11:30 (Tylenol) 650 mg Q6H PRN PO 01/08/18 11:30 01/19/18 13:07 (Morphine Inj) 2 mg Q3H PRN IV PUSH 01/08/18 12:15 (Morphine Inj) 4 mg Q3H PRN IV PUSH 01/08/18 12:15 (Narcan Inj) 0.4 mg UNSCH PRN IV PUSH 01/08/18 11:30 (Lashay-Colace) 1 tab BID PO 01/08/18 21:00 01/23/18 08:46 (Senokot) 17.2 mg Q12H PRN PO 01/08/18 11:30 (Dulcolax Supp) 10 mg DAILY PRN RECTAL 01/08/18 11:30 (Lactulose Liq) 30 ml DAILY PRN PO 01/08/18 11:30 (Robitussin Ac 200-20 Mg/10 ml Liq) 5 ml Q6H PRN PO 01/08/18 14:00 (Albuterol Neb) 2.5 mg Q2HR NEB PRN NEB 01/08/18 17:30 (Peridex 0.12% Liq) 15 ml BID@08,20 MT 6/10/18 08:00 01/18/18 07:38 (Heparin Inj) 5,000 units Q12HR SQ 01/09/18 21:00 01/24/18 09:09 (Pill Splitter) 1 ea UNSCH PRN OTHER 01/09/18 16:15 Sodium Chloride 1,000 ml @ 40 mls/hr Q24H IV 01/17/18 08:00 01/24/18 12:25 (Pepcid) 10 mg BID PO 01/17/18 21:00 01/24/18 09:09 (Lopressor) 25 mg Q12HR PO 01/18/18 09:00 01/24/18 09:08 (Lopressor Inj) 2.5 mg Q5M PRN IV PUSH 01/20/18 14:15 (Catapres) 0.1 mg Q6H PRN PO 01/20/18 14:30 01/23/18 00:15 (Flomax) 0.4 mg DAILY PO 01/21/18 09:00 01/24/18 09:09 (Levaquin) 750 mg Q24H PO 01/24/18 16:00 01/24/18 15:58 (Cardizem) 30 mg Q8HR PO 01/25/18 06:00 (Motrin) 600 mg Q8H PRN PO 01/24/18 14:45 Vital Signs / I&O Vital Signs Date Time Temp Pulse Resp B/P (MAP) Pulse Ox O2 Delivery O2 Flow Rate FiO2 01/24/18 12:00 97.9 71 20 118/64 (82) 95 01/24/18 12:00 46 01/24/18 10:10 Room Air 01/24/18 09:01 94 20 137/68 (91) 96 01/24/18 08:00 73 01/24/18 08:00 97.4 69 20 119/68 (85) 95 01/24/18 04:00 98.6 73 18 139/65 (89) 95 01/24/18 04:00 71 01/24/18 00:00 98.1 71 18 150/78 (102) 95 01/23/18 23:59 81 01/23/18 20:00 98.3 71 24 133/67 (89) 97 01/23/18 19:53 74 01/23/18 19:45 Room Air I/O 01/23/18 01/23/18 01/23/18 01/24/18 01/24/18 01/24/18 07:00 15:00 23:00 07:00 15:00 23:00 Intake Total 600 ml 240 ml 1100 ml Output Total 350 ml 200 ml 125 ml Balance -350 ml 400 ml 115 ml 1100 ml Intake Oral 600 ml 240 ml IV Total 1100 ml Output Urine Total 350 ml 200 ml 125 ml # Voids 1 # Bowel Movements 0 Physical Exam GENERAL: NAD SKIN: Warm and dry. HEAD: Atraumatic. Normocephalic. EYES: Pupils equal and round. No scleral icterus. No injection or drainage. ENT: No nasal bleeding or discharge. Mucous membranes pink and moist. NECK: Trachea midline. No JVD. CARDIOVASCULAR: Regular rate and rhythm. RESPIRATORY: No accessory muscle use. Decreased breath sounds with scattered rhonchi GASTROINTESTINAL: Abdomen soft, non-tender, nondistended. Hepatic and splenic margins not palpable. MUSCULOSKELETAL: Extremities without clubbing, cyanosis, or edema. No obvious deformities. NEUROLOGICAL: No focal deficits Laboratory Laboratory Tests Test 01/24/18 10:50 White Blood Count 9.3 TH/MM3 Red Blood Count 3.58 MIL/MM3 Hemoglobin 11.1 GM/DL Hematocrit 33.2 % Mean Corpuscular Volume 92.7 FL Mean Corpuscular Hemoglobin 30.9 PG Mean Corpuscular Hemoglobin Concent 33.4 % Red Cell Distribution Width 14.5 % Platelet Count 457 TH/MM3 Mean Platelet Volume 8.2 FL Neutrophils (%) (Auto) 64.4 % Lymphocytes (%) (Auto) 19.3 % Monocytes (%) (Auto) 11.7 % Eosinophils (%) (Auto) 3.4 % Basophils (%) (Auto) 1.2 % Neutrophils # (Auto) 6.0 TH/MM3 Lymphocytes # (Auto) 1.8 TH/MM3 Monocytes # (Auto) 1.1 TH/MM3 Eosinophils # (Auto) 0.3 TH/MM3 Basophils # (Auto) 0.1 TH/MM3 CBC Comment DIFF FINAL Differential Comment Blood Urea Nitrogen 25 MG/DL Creatinine 1.00 MG/DL Random Glucose 90 MG/DL Calcium Level 8.7 MG/DL Sodium Level 137 MEQ/L Potassium Level 3.6 MEQ/L Chloride Level 109 MEQ/L Carbon Dioxide Level 14.8 MEQ/L Anion Gap 13 MEQ/L Estimat Glomerular Filtration Rate 75 ML/MIN Imaging Last 24 hours Impressions Upper Extremity Ultrasound 01/24/18 0000 Signed Impressions: CONCLUSION: 1. Occlusive thrombus in the left cephalic vein without evidence for abscess. There is subcutaneous edema present. Assessment and Plan Problem List: (1) Bilateral pneumonia ICD Codes: J18.9 - Pneumonia, unspecified organism Status: Acute (2) Hypoxia ICD Codes: R09.02 - Hypoxemia Status: Acute (3) Tachyarrhythmia ICD Codes: R00.0 - Tachycardia, unspecified Status: Acute (4) Paroxysmal atrial flutter ICD Codes: I48.92 - Unspecified atrial flutter Status: Acute Assessment and Plan 1) SOB secondary to PNA Bloody mucus, TB ruled out s/p intubation for respiratory failure, s.p extubation 2) Aflutter with RVR, now in sinus rhythm Mildly bradycardic, will plan to decrease meds Cardizem changed to q8, will plan to change Metoprolol to 12.5mg BID Most likely potentiated by his underlying illness Discussed with patient and his family His daughter is concerned as he's had a CVA before Agree that he is overall a high risk, will plan on starting on Eliquis while here in the hospital 3) EF 30-35% 4) 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 Lamar Echo technically difficult, does not appear like a replacement of aortic valve 5) Abdominal aortic aneurysm Follow up with Dr. Lamar 6) Tobacco cessation 7) Elevated troponins Type 2 in nature due to underlying illness/hypoxemia Medical management as he is not an invasive candidate with hemoptysis and starting on anti-coagulation This can be reevaluated most likely outpt 8) HTN Started on Cardizem for heart rate/bp control 9) Occlusive thrombus left cephalic vein Being placed on Eliquis for Afib Problem Qualifiers (1) Bilateral pneumonia: Qualified Codes: J18.1 - Lobar pneumonia, unspecified organism Atul Galan DO Jan 24, 2018 18:07
[2018-01-24] MEDS: APIXABAN 5 MG TABLET PO SCH (20:54)
[2018-01-24] MEDS: IBUPROFEN 600 MG TAB PO PRN (20:59)
[2018-01-25] VITALS (9 sets, daily range): BP systolic 136–157; BP diastolic 71–74; PULSE 56–79; RESP 17–18; TEMP 97.9–99.2; O2SAT 95–98
[2018-01-25] MEDS: DILTIAZEM HCL 30 MG TAB PO SCH ×3 (05:48→17:57)
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
[2018-01-25] MEDS: CHLORHEXIDINE 0.12% (ORAL KIT) 15 ML CUP MT SCH ×2 (07:42→20:00)
[2018-01-25] MEDS: METOPROLOL TARTRATE 25 MG TAB PO SCH (09:00)
[2018-01-25] MEDS: SODIUM CHLORIDE 0.9% FLUSH 10 ML FLUSH IV FLUSH SCH ×2 (09:00→20:52)
[2018-01-25] MEDS: APIXABAN 5 MG TABLET PO SCH ×2 (10:07→20:51)
[2018-01-25] MEDS: FAMOTIDINE 20 MG TAB PO SCH ×2 (10:07→20:51)
[2018-01-25] MEDS: TAMSULOSIN HCL 0.4 MG CAP PO SCH (10:07)
[2018-01-25] MEDS: ASPIRIN 81 MG CHEW TAB CHEW SCH (10:08)
[2018-01-25] MEDS: DOCUSATE SODIUM 50 MG/SENNA 8.6 MG TAB PO SCH ×2 (10:19→20:51)
[2018-01-25] MEDS: SODIUM CHLOR 0.9% 1000 ML INJ 1,000 ML IV SCH (12:06)
--- NOTE | 2018-01-25 13:04 | PD.CARD.PN ---
Subjective Subjective Remarks Telemetry sinus rhythm/sinus bradycardia Daughter translated for family Feels tired, no chest pain/SOB, no hemoptysis When up to the chair does well, but once he lays down then he falls asleep Objective Medications Current Medications Medications (Trade) Dose Ordered Sig/Herber Route Start Time Stop Time Status Last Admin (NS Flush) 2 ml BID IV FLUSH 01/07/18 21:00 01/22/18 21:46 (NS Flush) 2 ml UNSCH PRN IV FLUSH 01/07/18 13:00 01/11/18 07:40 (Apresoline) 10 mg Q45M PRN PO 01/07/18 15:00 01/21/18 02:43 (Aspirin Chew) 81 mg DAILY CHEW 01/08/18 09:00 01/25/18 10:08 (Tylenol) 650 mg Q4H PRN PO 01/08/18 11:30 01/17/18 10:10 (Zofran Odt) 4 mg Q6H PRN PO 01/08/18 12:15 (Reglan Inj) 5 mg Q6H PRN IV PUSH 01/08/18 11:30 (Tylenol) 650 mg Q6H PRN PO 01/08/18 11:30 01/19/18 13:07 (Morphine Inj) 2 mg Q3H PRN IV PUSH 01/08/18 12:15 (Morphine Inj) 4 mg Q3H PRN IV PUSH 01/08/18 12:15 (Narcan Inj) 0.4 mg UNSCH PRN IV PUSH 01/08/18 11:30 (Lashay-Colace) 1 tab BID PO 01/08/18 21:00 01/25/18 10:19 (Senokot) 17.2 mg Q12H PRN PO 01/08/18 11:30 (Dulcolax Supp) 10 mg DAILY PRN RECTAL 01/08/18 11:30 (Lactulose Liq) 30 ml DAILY PRN PO 01/08/18 11:30 (Robitussin Ac 200-20 Mg/10 ml Liq) 5 ml Q6H PRN PO 01/08/18 14:00 (Albuterol Neb) 2.5 mg Q2HR NEB PRN NEB 01/08/18 17:30 (Peridex 0.12% Liq) 15 ml BID@08,20 MT 01/09/18 08:00 01/18/18 07:38 (Pill Splitter) 1 ea UNSCH PRN OTHER 01/09/18 16:15 Sodium Chloride 1,000 ml @ 40 mls/hr Q24H IV 01/17/18 08:00 01/25/18 12:06 (Pepcid) 10 mg BID PO 01/17/18 21:00 01/25/18 10:07 (Lopressor Inj) 2.5 mg Q5M PRN IV PUSH 01/20/18 14:15 (Catapres) 0.1 mg Q6H PRN PO 01/20/18 14:30 01/23/18 00:15 (Flomax) 0.4 mg DAILY PO 01/21/18 09:00 01/25/18 10:07 (Levaquin) 750 mg Q24H PO 01/24/18 16:00 01/24/18 15:58 (Motrin) 600 mg Q8H PRN PO 01/24/18 14:45 01/24/18 20:59 (Eliquis) 5 mg BID PO 01/24/18 21:00 01/25/18 10:07 (Cardizem) 30 mg Q6HR PO 01/25/18 18:00 Vital Signs / I&O Vital Signs Date Time Temp Pulse Resp B/P (MAP) Pulse Ox O2 Delivery O2 Flow Rate FiO2 01/25/18 08:00 97.9 73 18 136/71 (92) 96 01/25/18 08:00 79 01/25/18 08:00 Room Air 01/25/18 05:40 98.0 72 18 140/73 (95) 96 01/25/18 04:17 Room Air 01/25/18 04:00 72 01/25/18 00:00 98.2 68 18 148/74 (98) 96 01/25/18 00:00 66 01/25/18 00:00 Room Air 01/24/18 21:02 98.2 72 16 156/76 (102) 95 01/24/18 20:00 Room Air 01/24/18 20:00 76 01/24/18 16:00 64 I/O 01/24/18 01/24/18 01/24/18 01/25/18 01/25/18 01/25/18 07:00 15:00 23:00 07:00 15:00 23:00 Intake Total 240 ml 1100 ml 480 ml 680 ml Output Total 125 ml 1150 ml Balance 115 ml 1100 ml 480 ml -470 ml Intake Oral 240 ml 480 ml 200 ml IV Total 1100 ml 480 ml Output Urine Total 125 ml 1150 ml # Voids 1 2 # Bowel Movements 0 0 Physical Exam GENERAL: NAD SKIN: Warm and dry. HEAD: Atraumatic. Normocephalic. EYES: Pupils equal and round. No scleral icterus. No injection or drainage. ENT: No nasal bleeding or discharge. Mucous membranes pink and moist. NECK: Trachea midline. No JVD. CARDIOVASCULAR: Regular rate and rhythm. RESPIRATORY: No accessory muscle use. Decreased breath sounds with scattered rhonchi GASTROINTESTINAL: Abdomen soft, non-tender, nondistended. Hepatic and splenic margins not palpable. MUSCULOSKELETAL: Extremities without clubbing, cyanosis, or edema. No obvious deformities. NEUROLOGICAL: No focal deficits Assessment and Plan Problem List: (1) Bilateral pneumonia ICD Codes: J18.9 - Pneumonia, unspecified organism Status: Acute (2) Hypoxia ICD Codes: R09.02 - Hypoxemia Status: Acute (3) Tachyarrhythmia ICD Codes: R00.0 - Tachycardia, unspecified Status: Acute (4) Paroxysmal atrial flutter ICD Codes: I48.92 - Unspecified atrial flutter Status: Acute Assessment and Plan 1) SOB secondary to PNA Bloody mucus, TB ruled out s/p intubation for respiratory failure, s.p extubation 2) Aflutter with RVR, now in sinus rhythm Mildly bradycardic, will plan to decrease meds Will change Cardizem back to 30mg q6 so he can be placed on Cardizem CD/ LA on discharge for better compliance Lopressor stopped Most likely potentiated by his underlying illness Discussed with patient and his family His daughter is concerned as he's had a CVA before Agree that he is overall a high risk, will plan on starting on Eliquis while here in the hospital 3) EF 30-35% 4) 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 Lamar Echo technically difficult, does not appear like a replacement of aortic valve 5) Abdominal aortic aneurysm Follow up with Dr. Lamar 6) Tobacco cessation 7) Elevated troponins Type 2 in nature due to underlying illness/hypoxemia Medical management as he is not an invasive candidate with hemoptysis and starting on anti-coagulation This can be reevaluated most likely outpt 8) HTN Started on Cardizem for heart rate/bp control 9) Occlusive thrombus left cephalic vein Being placed on Eliquis for Afib 10) No further cardiovascular work up Agree with rehab Problem Qualifiers (1) Bilateral pneumonia: Qualified Codes: J18.1 - Lobar pneumonia, unspecified organism Atul Galan DO Jan 25, 2018 13:04
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
[2018-01-25] MEDS ORDERED: APIX5TAB PO (15:16)
[2018-01-25] MEDS ORDERED: CARD120C4 PO (15:16)
[2018-01-25] MEDS ORDERED: ASPI81 CHEW (15:16)
[2018-01-25] MEDS ORDERED: FAMO20TA2 PO (15:16)
[2018-01-25] MEDS ORDERED: TAMS5CAP PO (15:16)
--- NOTE | 2018-01-25 15:22 | HHI.DS ---
Discharge Summary Admission Date Jan 07, 2018 at 12:54 Discharge Date: Jan 25, 2018 Admitting Diagnosis Bilateral upper lobe pneumonia, paroxysmal atrial flutter, hypoxia (1) Paroxysmal atrial flutter ICD Code: I48.92 - Unspecified atrial flutter Status: Acute (2) Bilateral pneumonia ICD Code: J18.9 - Pneumonia, unspecified organism Status: Acute (3) Tachyarrhythmia ICD Code: R00.0 - Tachycardia, unspecified Status: Acute (4) Hypoxia ICD Code: R09.02 - Hypoxemia Status: Acute Procedures s/p intubation/extubation Brief History - From Admission 67-year-old male with history of open heart surgery for uncertain reasons, TIA, bilateral carotid stenting, chronic smoker who presents with a 3 day history of cough productive of bloody sputum, as well as sharp epigastric abdominal worse with deep breathing. Over the phone translation is offered, however patient opts to use daughter for translation. Patient reports sweats, shortness of breath, and reports breathing worse lying down. He is emigrated from [place] in the 1970s, denies any recent travel outside the country, however reports recent automobile travel which lasted 2 days. He denies any swelling in his extremities. CBC/BMP: 01/24/18 1050 01/24/18 1050 Significant Findings Laboratory Tests Test 01/23/18 10:31 01/24/18 10:50 Red Blood Count 3.47 MIL/MM3 (4.50-5.90) 3.58 MIL/MM3 (4.50-5.90) Hemoglobin 10.9 GM/DL (13.0-17.0) 11.1 GM/DL (13.0-17.0) Hematocrit 31.8 % (39.0-51.0) 33.2 % (39.0-51.0) Neutrophils (%) (Auto) 80.2 % (16.0-70.0) Lymphocytes # (Auto) 0.8 TH/MM3 (1.0-4.8) Blood Urea Nitrogen 24 MG/DL (7-18) 25 MG/DL (7-18) Chloride Level 110 MEQ/L (98-107) 109 MEQ/L (98-107) Carbon Dioxide Level 16.2 MEQ/L (21.0-32.0) 14.8 MEQ/L (21.0-32.0) Estimat Glomerular Filtration Rate 74 ML/MIN (>89) 75 ML/MIN (>89) Platelet Count 457 TH/MM3 (150-450) Monocytes (%) (Auto) 11.7 % (0.0-8.0) Monocytes # (Auto) 1.1 TH/MM3 (0-0.9) Imaging Last Impressions Upper Extremity Ultrasound 01/25/18 Signed Impressions: CONCLUSION: 1. Redemonstration of occlusive thrombus in the forearm cephalic vein. 2. Otherwise, no sonographic evidence for left upper extremity DVT. Chest X-Ray 01/17/18 Signed Impressions: CONCLUSION: 1. Moderately improved right upper lobe airspace disease. Head CT 01/14/18 Signed Impressions: CONCLUSION: 1. Negative for acute process. Renal Ultrasound 01/08/18 Signed Impressions: CONCLUSION: 1. Atrophic left kidney. Right kidney unremarkable. No hydronephrosis. Lower Extremity Ultrasound 01/08/18 Signed Impressions: CONCLUSION: 1. Negative for deep venous thrombosis bilateral lower extremities. Chest CT 01/07/18 Addendum Impressions: CONCLUSION: 1. There is airspace consolidation in bilateral upper lobes highly suspicious for pneumonia. 2. Small bilateral pleural effusions. 3. 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 4. Superior endplate depression and compression of one of the upper lumbar stevan tebrae not adequately characterized probably chronic. PE at Discharge GENERAL: This is a well-nourished, well-developed patient, in no apparent distress. Alert and oriented 3. SKIN: No rashes, ecchymoses or lesions. Cool and dry. HEAD: Atraumatic. Normocephalic. No temporal or scalp tenderness. EYES: Pupils equal round and reactive. Extraocular motions intact. No scleral icterus. No injection or drainage. ENT: Nose without bleeding, purulent drainage or septal hematoma. Throat without erythema, tonsillar hypertrophy or exudate. Uvula midline. Airway patent. No bruits NECK: Trachea midline. No JVD or lymphadenopathy. Supple, nontender, no meningeal signs. CARDIOVASCULAR: Regular rate and rhythm without murmurs, gallops, or rubs. Midline healed chest surgical scar., Midline abdominal scar. RESPIRATORY: COARSE BS BL. No wheezes, rales, or rhonchi. GASTROINTESTINAL: Abdomen soft, non-tender, nondistended. No hepato-splenomegaly , or palpable masses. No guarding. MUSCULOSKELETAL: Extremities without clubbing, cyanosis, or edema. No joint tenderness, effusion, or edema noted. No calf tenderness. Negative Homans sign bilaterally. NEUROLOGICAL: Awake and alert. Cranial nerves II through XII intact. Motor and sensory grossly within normal limits. Five out of 5 muscle strength in all muscle groups. Normal speech. INSIGHT AND JUDGEMENT IS LIMITED MOOD AND BEHAVIOR IS SOMEWHAT APPROPRIATE Pt update on day of discharge Pt feeling ok. Denied any CP/SOB/N/V. Mentions he feels weak but comfortable going to rehab Hospital Course In summary this is a 67-year-old male with an extensive cardiac history admitted for Community acquired pneumonia, Acute hypoxic and hypercapnic respiratory failure, Acute severe pulmonary edema he was Intubated 01/08 - extubated 01/15, reintubated 01/15 for flash pulmonary edema in the setting of SVT. CT chest 01/07: negative for PE. Bilateral upper lobe consolidation. Small bilateral pleural effusions. QuantiFERON negative Pulm and ID evaluated the patient and completed 7 days of cefepime, he was the transitioned to po levaquin on 01/24/18. Discussed w Dr. Goetz, no need to continue abx. He later developed A. fib with RVR, Paroxysmal atrial flutter, type II and STEMI. He was evaluated by cardiology. Echo showed EF 30-35%, previous chest surgery was an aortic arch replacement with the branching, echo technically difficult, elevated troponins likely due to underlying illness, hypoxemia, started on Cardizem and beta rachel. Dr. Galna, started him on eliquis and cleared him to be discharged on cardizem CD 120mg po daily and stop BB. Left Forearm Swelling from IV site. Likely superficial thrombophlebitis. Continue ICE to area. US soft tissue shows occlusive thrombus of cephalic vein. Pt already on eliquis Pt Condition on Discharge: Stable Discharge Disposition: Discharge to SNF Discharge Time: > 30 minutes Discharge Instructions DIET: Follow Instructions for: Heart Healthy Diet Activities you can perform: Regular-No Restrictions Other Activity Instructions: elevated left arm and apply cold compresses to affected area Follow up Referrals: Cardiology - 2 Weeks PCP Follow-up - 1 Week New Medications: Diltiazem CD 24 HR (Cardizem CD 24 HR) 120 Mg Caper 120 MG PO DAILY, #30 CAP 0 Refills Walker with Front Wheels (Walker with Front Wheels) 1 Mis Mis EA .XX DIRECTED, #1 0 Refills Apixaban (Eliquis) 5 Mg Tab 5 MG PO BID, #60 TAB Aspirin (Tgt Aspirin) 81 Mg Chw 81 MG CHEW DAILY, #30 EA Famotidine (Famotidine) 20 Mg Tab 10 MG PO BID, #30 TAB Tamsulosin (Flomax) 0.4 Mg Cap 0.4 MG PO DAILY, #30 CAP Candace Christianson MD Jan 25, 2018 15:22
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
[2018-01-26] VITALS: BP 150/70; PULSE 73; RESP 17; TEMP 98.1; O2SAT 97
[2018-01-26] MEDS: DILTIAZEM HCL 30 MG TAB PO SCH ×3 (00:35→12:07)
[2018-01-26 03:57] VITALS: PULSE 67
[2018-01-26 04:00] VITALS: BP 154/72; PULSE 66; RESP 17; TEMP 98; O2SAT 96
[2018-01-26 08:00] VITALS: BP 132/74; PULSE 66; RESP 19; TEMP 98.2; O2SAT 100
[2018-01-26] MEDS: CHLORHEXIDINE 0.12% (ORAL KIT) 15 ML CUP MT SCH (08:00)
[2018-01-26] MEDS: DOCUSATE SODIUM 50 MG/SENNA 8.6 MG TAB PO SCH (09:00)
[2018-01-26] MEDS: ASPIRIN 81 MG CHEW TAB CHEW SCH (10:03)
[2018-01-26] MEDS: FAMOTIDINE 20 MG TAB PO SCH (10:04)
[2018-01-26] MEDS: TAMSULOSIN HCL 0.4 MG CAP PO SCH (10:04)
[2018-01-26] MEDS: APIXABAN 5 MG TABLET PO SCH (10:05)
[2018-01-26] MEDS: SODIUM CHLORIDE 0.9% FLUSH 10 ML FLUSH IV FLUSH SCH (10:07)
[2018-01-26] MEDS: IBUPROFEN 600 MG TAB PO PRN (12:08)
== END 2018-01-26 12:45 | DRG 207 ==
LOC: NEPE 09:31 → NEDA 12:54 → N07A 19:17 → HIMW 01-08 14:25 → N04B 01-21 17:39
PROVIDERS: ADMIT Family Medicine; ATTEND Family Medicine
PROC: 5A1955Z Respiratory Ventilation, Greater than 96 Consecutive Hours (ICD-10-PCS; principal; 2018-01-08)
PROC: 0BH17EZ Insertion of Endotracheal Airway into Trachea, Via Natural or Artificial Opening (ICD-10-PCS; 2018-01-08)
PROC: 5A1945Z Respiratory Ventilation, 24-96 Consecutive Hours (ICD-10-PCS; 2018-01-15)
PROC: 0CJS8ZZ Inspection of Larynx, Via Natural or Artificial Opening Endoscopic (ICD-10-PCS; 2018-01-15)
PROC: 0BH17EZ Insertion of Endotracheal Airway into Trachea, Via Natural or Artificial Opening (ICD-10-PCS; 2018-01-15)
DX: J18.9 Pneumonia, unspecified organism (principal); I21.A1 Myocardial infarction type 2; J81.0 Acute pulmonary edema; N17.9 Acute kidney failure, unspecified; E43 Unspecified severe protein-calorie malnutrition; E87.0 Hyperosmolality and hypernatremia; I47.1 Supraventricular tachycardia; I48.91 Unspecified atrial fibrillation; J96.01 Acute respiratory failure with hypoxia; J96.02 Acute respiratory failure with hypercapnia; I48.92 Unspecified atrial flutter; R04.2 Hemoptysis; I82.612 Acute embolism and thrombosis of superficial veins of left upper extremity; Z99.11 Dependence on respirator [ventilator] status; E78.5 Hyperlipidemia, unspecified; F17.210 Nicotine dependence, cigarettes, uncomplicated; I73.9 Peripheral vascular disease, unspecified; I25.10 Atherosclerotic heart disease of native coronary artery without angina pectoris; I10 Essential (primary) hypertension; I71.4 Abdominal aortic aneurysm, without rupture; R73.9 Hyperglycemia, unspecified; E87.6 Hypokalemia; R00.1 Bradycardia, unspecified; I80.8 Phlebitis and thrombophlebitis of other sites; E87.70 Fluid overload, unspecified; R42 Dizziness and giddiness; Z79.82 Long term (current) use of aspirin; Z95.820 Peripheral vascular angioplasty status with implants and grafts; Z86.73 Personal history of transient ischemic attack (TIA), and cerebral infarction without residual deficits; T50.2X5A Adverse effect of carbonic-anhydrase inhibitors, benzothiadiazides and other diuretics, initial encounter
CPT/HCPCS: 31500; 36600; 70450; 71045; 71046; 71260; 76775; 76882; 76937; 80048; 80053; 80069; 80307; 81001; 82550; 82552; 82570; 82805; 82948; 83036; 83605; 83690; 83735; 83880; 84100; 84132; 84300; 84439; 84443; 84484; 85025; 85027; 85379; 85610; 85730; 86480; 86592; 87015; 87040; 87070; 87116; 87205; 87206; 87449; 87556; 87641; 87798; 87804; 93005; 93306; 93970; 93971; 94003; 94150; 94640; 94664; 94667; 96361; 96365; 96368; 96375; J0171; J0330; J0456; J0692; J0696; J1120; J1160; J1205; J1644; J1815; J1940; J2250; J2270; J2543; J3010; J3370; J3475; J3480; J7030; J7040; J7050; J7644; P9047; Q9967